=== PATIENT | female | born 1960 | race Caucasian/White ===

== ENCOUNTER → 2016-04-12 | Outpatient (CLI) | payer BC ==
[~2016-04-12] MED LIST: ALEN70TA4 PO; ALPR-412 PO; ASPI1TAB2 PO; ATOR-22 PO; BUPR-79 PO; CALC1CAP24 PO; CHOL1000 PO; CONJ0.3T3 PO; CRFL PO; CYTM25 PO; FENT12DI6 TD; FENT25DI10 TD; FLUC200T4 PO; FLUN0.02 NAE; FOLI1TAB7 PO; GLGKIT; HYOS0.3725 PO; INSDGI SC; INSPMPNVLG; LEVO50TA6 PO; MONT1TAB5 PO; MULT-506 PO; ONDA8TAB62 SL; PANC1200 PO; RXC30 PO; VLT500 PO; ZNTT/150 PO; [UNRECOGNIZED DRUG - CODE] PO
[2016-04-12 10:22] LABS: ESTIMATED AVERAGE GLUCOSE 203 mg/dl; HA1C FLAG Normal (Normal)
== END | disposition home or self-care (01) ==
LOC: C.LAB1850 09:16
PROVIDERS: ATTEND Nurse Practitioner Adult Health
DX: Z11.59 Encounter for screening for other viral diseases (principal); E10.41 Type 1 diabetes mellitus with diabetic mononeuropathy

== ENCOUNTER → 2016-05-02 | Outpatient (CLI) | payer BC ==
[2016-05-02 16:00] LABS: BASO % 0.5 %; BASO ABS # 0.04 K/uL (0-0.2); COMPLETE YES; EOS % 2.3 %; HEMATOCRIT 35.4 % (37-47); IG% 0.2 %; LYMPH % 45.3 %; LYMPH ABS # 3.68 K/uL (1.2-3.4); MEAN CELL VOLUME 100.9 fL (80-100); MEAN CORPUSCULAR HEMOGLOBIN 34.8 pg (25-34); MEAN CORPUSCULAR HGB CONC 34.5 g/dl (32-36); MEAN PLATELET VOLUME 9.7 fL (7.4-10.4); MONO % 8.5 %; NEUT % 43.2 %; PLATELET COUNT 436 K/uL (130-400); RED BLOOD COUNT 3.51 M/uL (4.2-5.4); WHITE BLOOD COUNT 8.12 K/uL (4.8-10.8)
[2016-05-02 16:56] LABS: ALT/SGPT 19 U/L (12-78); BLOOD UREA NITROGEN 11 mg/dl (7-18); BUN/CREATININE RATIO 19.1 (10-20); CALCIUM 8.7 mg/dl (8.5-10.1); CARBON DIOXIDE 28 mmol/L (21-32); CHLORIDE 103 mmol/L (98-107); CHOLESTEROL 149 mg/dl (0-200); CREATININE 0.56 mg/dl (0.60-1.20); GLUCOSE 175 mg/dl (70-99); POTASSIUM 3.9 mmol/L (3.5-5.1); SODIUM 141 mmol/L (136-145)
[2016-05-02 17:06] LABS: ALB/GLOB RATIO 1.3 (0.9-2); ALKALINE PHOSPHATASE 86 U/L (45-117); AST/SGOT 15 U/L (15-37); CHOLESTEROL/HDL RATIO 1.3; HDL CHOLESTEROL 118 mg/dl; LDL CHOLESTEROL CALCULATED 16 mg/dl; THYROID STIMULATING HORMONE 0.696 uIu/ml (0.300-4.500); TRIGLYCERIDES 76 mg/dl (0-150); VERY LOW DENSITY LIPOPROT CALC 15 mg/dl
== END | disposition home or self-care (01) ==
LOC: C.LAB1850 15:03
PROVIDERS: ATTEND Internal Medicine
DX: G62.9 Polyneuropathy, unspecified (principal)

== ENCOUNTER 2016-05-06 14:31 | Inpatient (IN) | payer BC ==
[~2016-05-06] VITALS: Ht 160 cm; Wt 45.1 kg
[~2016-05-06 14:31] MED LIST changes: -CRFL PO; -VLT500 PO; -ZNTT/150 PO
[2016-05-06] MEDS ORDERED: SODIUM CHLORIDE 0.9% 1000ML 1,000 ML IV STA ×3 (16:22→18:38)
[2016-05-06] MEDS ORDERED: ONDANSETRON INJ 2 MG/ML 2 ML VIAL IV STA (16:36)
[2016-05-06] MEDS ORDERED: GI COCKTAIL PO STA (16:36)
[2016-05-06 16:52] LABS: URINE APPEARANCE CLEAR (CLEAR); URINE BILIRUBIN NEG (NEG); URINE COLOR YELLOW; URINE NITRITE NEG (NEG); URINE PH >= 9.0 (4.5-7.5); URINE SPECIFIC GRAVITY 1.043 (1.000-1.030); UROBILINOGEN NEG (NEG)
[2016-05-06 16:56] LABS: MANUAL MICROSCOPIC REQUIRED? NO; REVIEW REQ? NO
[2016-05-06] MEDS ORDERED: VLT500 PO (16:56)
--- NOTE | 2016-05-06 17:17 | DIAGNOSTIC IMAGING REPORT ---
CHEST ONE VIEW PORTABLE CLINICAL HISTORY: EVALUATE WEAKNESS dyspnea COMPARISON STUDY: 01/12/2016 FINDINGS: The bones soft tissues and hemidiaphragms are normal. The cardiomediastinal silhouette is normal. The lungs are clear. The pulmonary vasculature is normal. IMPRESSION: Negative chest. Electronically signed by: Nick Lin M.D. 05/06/2016 5:16 PM Dictated Date/Time: 05/06/2016 5:15 PM
[2016-05-06] MEDS ORDERED: LIDOCAINE HCL 2% VISC SOLN 20 ML UDC ONE (17:20)
[2016-05-06] MEDS ORDERED: ALUMINUM/MAGNESIUM SUSP 30 ML UDC ONE (17:20)
[2016-05-06] MEDS: HYDROmorphone INJ 0.5 MG/0.5 ML SYR IV PRN ×2 (17:45→19:05)
[2016-05-06 18:06] LABS: BASO % 0.2 %; BASO ABS # 0.02 K/uL (0-0.2); COMPLETE YES; EOS % 0.1 %; HEMATOCRIT 37.8 % (37-47); IG% 0.2 %; LYMPH % 21.3 %; LYMPH ABS # 2.68 K/uL (1.2-3.4); MEAN CELL VOLUME 103.8 fL (80-100); MEAN CORPUSCULAR HEMOGLOBIN 35.7 pg (25-34); MEAN CORPUSCULAR HGB CONC 34.4 g/dl (32-36); MEAN PLATELET VOLUME 10.5 fL (7.4-10.4); MONO % 9.5 %; NEUT % 68.7 %; PLATELET COUNT 409 K/uL (130-400); RED BLOOD COUNT 3.64 M/uL (4.2-5.4); WHITE BLOOD COUNT 12.57 K/uL (4.8-10.8)
[2016-05-06 18:11] LABS: PARTIAL THROMBOPLASTIN RATIO 0.9
[2016-05-06] MEDS ORDERED: OPTIRAY 320 IV PRN (18:30)
[2016-05-06 18:36] LABS: ALKALINE PHOSPHATASE 87 U/L (45-117); ALT/SGPT 17 U/L (12-78); AST/SGOT 13 U/L (15-37); BLOOD UREA NITROGEN 11 mg/dl (7-18); BUN/CREATININE RATIO 14.7 (10-20); CALCIUM 9.4 mg/dl (8.5-10.1); CARBON DIOXIDE 32 mmol/L (21-32); CHLORIDE 98 mmol/L (98-107); CKMB/CK RATIO 0.9 (0-3.0); CREATININE 0.74 mg/dl (0.60-1.20); GLUCOSE 400 mg/dl (70-99); MAGNESIUM 2.2 mg/dl (1.8-2.4); POTASSIUM 3.6 mmol/L (3.5-5.1); SODIUM 140 mmol/L (136-145); THYROID STIMULATING HORMONE 0.148 uIu/ml (0.300-4.500)
[2016-05-06] MEDS ORDERED: NovoLIN-R INSULIN PER UNIT CHARGE IV STA ×2 (18:38→19:36)
[2016-05-06 19:13] LABS: BETA-HYDROXYBUTYRATE 7.71 mg/dL (0.2-2.81)
--- NOTE | 2016-05-06 19:40 | DIAGNOSTIC IMAGING REPORT ---
ABDOMEN AND PELVIS CT WITH IV AND ORAL CONTRAST CT DOSE: 239.83 mGy.cm HISTORY: Pain upper abd pain, prior whipple, splenectomy, appy, teressa, REBA TECHNIQUE: Multiaxial CT images of the abdomen and pelvis were performed following the use of intravenous and oral contrast. COMPARISON STUDY: 04/03/2009 FINDINGS: Lung bases are clear. Stable postoperative changes consistent with Whipple type procedure. Pneumobilia postoperative basis. Mild fatty infiltration of liver. Kidneys enhance uniformly. No evidence for hydronephrosis. Prior splenectomy. No significant bowel obstructive changes. Uterus is anteflexed. Bladder is midline. Prior right hip narrowing procedure. IMPRESSION: Stable postoperative changes consistent with prior Whipple procedure and splenectomy. No acute process of the abdomen or pelvis. Electronically signed by: Nick Lin M.D. 05/06/2016 7:38 PM Dictated Date/Time: 05/06/2016 7:34 PM
[2016-05-06] MEDS ORDERED: OXYCODONE HCL IR 30 MG TAB (IMMEDIATE RELEASE) PO PRN (20:30)
--- NOTE | 2016-05-06 20:37 | EMERGENCY ROOM VISIT NOTE ---
History Report prepared by Alvinibnikki: Leatha Marshall Under the Supervision of: Dr. Zay Fleming M.D. First contact with patient: 16:22 Chief Complaint: HYPERGLYCEMIA Stated Complaint: BURNING STOMACH,SUGAR OVER 500, LEFT ARM History of Present Illness The patient is a 55 year old female who presents to the Emergency Room with complaints of persistent hyperglycemia. Her BSG was in the 400's when she checked at home earlier today. She has a history of diabetes and has an insulin pump in place. She also gave herself an insulin injection around 1130 today, but notes it provided no relief. She reports about 3 days ago, she started experiencing a "burning" pain in her stomach and watery diarrhea. She states her abdominal pain feels like it's caused by "acid" and she reports she has experienced similar symptoms in the past. She complains of feeling nauseous here in the ED but she has not vomited. She admits 3 of her family members have the flu at home, but she denies any recent cough or cold symptoms. She states she did experience a headache for the past 1 week, but reports it went away yesterday. The patient denies LOC, fevers, chills, diaphoresis, visual changes, neck pain, chest pain, breathing difficulties, back pain, melena, hematochezia, urinary symptoms, numbness, weakness, lymphadenopathy, rash, or other complaints. 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 A total of ten systems were reviewed and were otherwise negative. Past Medical & Surgical Medical Problems: (1) Appendectomy (2) Cholecystectomy (3) Diabetes mellitus (4) Intertrochanteric fracture of right hip (5) Pancreatectomy (6) Small bowel obstruction (7) Splenectomy Family History Patient reports no known family medical history. Social History Smoking Status: Never Smoker Alcohol Use: none Drug Use: none Marital Status: Housing Status: lives with family Occupation Status: employed Current/Historical Medications Scheduled Aspirin (Emily Aspirin Ec Low Dose), 81 MG PO DAILY Atorvastatin (Lipitor), 20 MG PO QPM Bupropion (Wellbutrin Sr), 150 MG PO Q12 Calcium (Calcium), 250 MG PO QPM Cholecalciferol (Vitamin D3), 1 TAB PO DAILY Estrog Conj/Medryoxyprog Acet (Prempro 0.3MG/1.5MG), 1 TAB PO QAM Fentanyl (Duragesic), 12 MCG TD [id number] Fentanyl (Duragesic), 25 MCG TD [id number] Folic Acid (Folvite), 1 MG PO QAM Hyoscyamine Sulfate (Levbid), 0.375 MG PO BID Insulin Aspart (novoLOG INSULIN PUMP ), 1 EA N/A UD Levothyroxine Sodium (Levothyroxine Sodium), 50 MCG PO QAM Liothyronine Sodium (Liothyronine Sodium), 12.5 MCG PO QAM Montelukast Sodium (Montelukast Sodium), 10 MG PO QAM Multivitamin (Multivitamin), 1 TAB PO QAM Omeprazole-Sodium Bicarbonate (Omeprazole/Sodium Bicarbo), 1 CAPSULE PO BID Pancrelipase (Lipase-Protease- (Creon 81953), 36,000 UNITS PO TIDM Valacyclovir HCl (Valacyclovir HCl), 500 MG PO BID Scheduled PRN Alprazolam (Alprazolam), 0.25 MG PO TID PRN for Anxiety Fluconazole (Diflucan), 200 MG PO UD PRN for UNDECIDED Flunisolide (Nasal) (Flunisolide), 2 SPRAYS GRECIA DAILY PRN for Allergies Glucagon (Glucagon Emergency Kit), 1 MG UD PRN for HYPOGLYCEMIA PROTOCOL Insulin Glargine (Lantus), 13 UNITS SC UD PRN for Novolog Pump Failure Ondansetron Odt (Zofran Odt), 8 MG SL Q6H PRN for Nausea Oxycodone HCl (Oxycodone HCl), 30 MG PO Q6H PRN for Pain Allergies Coded Allergies: No Known Allergies (Verified , 05/06/16) Physical Exam Vital Signs Date Time Temp Pulse Resp B/P Pulse Ox O2 Delivery O2 Flow Rate FiO2 05/06/16 20:00 87 16 136/79 99 Room Air 05/06/16 19:01 91 16 124/67 98 Room Air 05/06/16 16:51 112 18 144/78 96 Room Air 05/06/16 16:46 102 05/06/16 15:10 37.0 133 20 149/80 97 Room Air Physical Exam GENERAL: Awake, alert, uncomfortable-appearing, in no distress HENT: Normocephalic, atraumatic. Oropharynx unremarkable. EYES: Normal conjunctiva. Sclera non-icteric. NECK: Supple. No nuchal rigidity. FROM. No JVD. RESPIRATORY: Clear to auscultation. CARDIAC: Tachycardic heart rate, normal rhythm. Extremities warm and well perfused. Pulses equal. ABDOMEN: Soft, non-distended. Epigastric abdominal tenderness to palpation. No rebound or guarding. No masses. RECTAL: Deferred. MUSCULOSKELETAL: Chest examination reveals no tenderness. The back is symmetrical on inspection without obvious abnormality. There is no CVA tenderness to palpation. No joint edema. LOWER EXTREMITIES: Calves are equal size bilaterally and non-tender. No edema. No discoloration. NEURO: Normal sensorium. No sensory or motor deficits noted. SKIN: No rash or jaundice noted. Medical Decision & Procedures ER Provider Diagnostic Interpretation: This X-Ray was reviewed and interpreted by myself and the radiologist. CHEST ONE VIEW PORTABLE CLINICAL HISTORY: EVALUATE WEAKNESS dyspnea COMPARISON STUDY: 01/12/2016 FINDINGS: The bones soft tissues and hemidiaphragms are normal. The cardiomediastinal silhouette is normal. The lungs are clear. The pulmonary vasculature is normal. IMPRESSION: Negative chest. Electronically signed by: Nick Lin M.D. 05/06/2016 5:16 PM Laboratory Results 05/06/16 17:20 Red Blood Count 3.64, Mean Corpuscular Volume 103.8, Mean Corpuscular Hemoglobin 35.7, Mean Corpuscular Hemoglobin Concent 34.4, Mean Platelet Volume 10.5, Neutrophils (%) (Auto) 68.7, Lymphocytes (%) (Auto) 21.3, Monocytes (%) ( Auto) 9.5, Eosinophils (%) (Auto) 0.1, Basophils (%) (Auto) 0.2, Neutrophils # ( Auto) 8.64, Lymphocytes # (Auto) 2.68, Monocytes # (Auto) 1.19, Eosinophils # ( Auto) 0.01, Basophils # (Auto) 0.02 05/06/16 17:20 Test 05/06/16 16:25 05/06/16 17:20 05/06/16 20:01 Urine Color YELLOW Urine Appearance CLEAR (CLEAR) Urine pH >= 9.0 (4.5-7.5) Urine Specific [place] 1.043 (1.000-1.030) Urine Protein NEG (NEG) Urine Glucose (UA) 2+ (NEG) Urine Ketones 1+ (NEG) Urine Occult Blood NEG (NEG) Urine Nitrite NEG (NEG) Urine Bilirubin NEG (NEG) Urine Urobilinogen NEG (NEG) Urine Leukocyte Esterase NEG (NEG) White Blood Count 12.57 K/uL (4.8-10.8) Red Blood Count 3.64 M/uL (4.2-5.4) Hemoglobin 13.0 g/dL (12.0-16.0) Hematocrit 37.8 % (37-47) Mean Corpuscular Volume 103.8 fL (80-100) Mean Corpuscular Hemoglobin 35.7 pg (25-34) Mean Corpuscular Hemoglobin Concent 34.4 g/dl (32-36) Platelet Count 409 K/uL (130-400) Mean Platelet Volume 10.5 fL (7.4-10.4) Neutrophils (%) (Auto) 68.7 % Lymphocytes (%) (Auto) 21.3 % Monocytes (%) (Auto) 9.5 % Eosinophils (%) (Auto) 0.1 % Basophils (%) (Auto) 0.2 % Neutrophils # (Auto) 8.64 K/uL (1.4-6.5) Lymphocytes # (Auto) 2.68 K/uL (1.2-3.4) Monocytes # (Auto) 1.19 K/uL (0.11-0.59) Eosinophils # (Auto) 0.01 K/uL (0-0.5) Basophils # (Auto) 0.02 K/uL (0-0.2) RDW Standard Deviation 44.0 fL (36.4-46.3) RDW Coefficient of Variation 11.7 % (11.5-14.5) Immature Granulocyte % (Auto) 0.2 % Immature Granulocyte # (Auto) 0.03 K/uL (0.00-0.02) Prothrombin Time 11.0 SECONDS (9.0-12.0) Prothromb Time International Ratio 1.0 (0.9-1.1) Activated Partial Thromboplast Time 22.8 SECONDS (21.0-31.0) Partial Thromboplastin Ratio 0.9 Anion Gap 10.0 mmol/L (3-11) Est Creatinine Clear Calc Drug Dose 60.4 ml/min Estimated GFR () 105.0 Estimated GFR (Non- 90.6 BUN/Creatinine Ratio 14.7 (10-20) Calcium Level 9.4 mg/dl (8.5-10.1) Magnesium Level 2.2 mg/dl (1.8-2.4) Total Bilirubin 0.4 mg/dl (0.2-1) Direct Bilirubin 0.1 mg/dl (0-0.2) Aspartate Amino Transf (AST/SGOT) 13 U/L (15-37) Alanine Aminotransferase (ALT/SGPT) 17 U/L (12-78) Alkaline Phosphatase 87 U/L (45-117) Total Creatine Kinase 74 U/L (26-192) Creatine Kinase MB 0.7 ng/ml (0.5-3.6) Creatine Kinase MB Ratio 0.9 (0-3.0) Troponin I < 0.015 ng/ml (0-0.045) Total Protein 7.4 gm/dl (6.4-8.2) Albumin 4.2 gm/dl (3.4-5.0) Lipase 59 U/L (73-393) Beta-Hydroxybutyric Acid 7.71 mg/dL (0.2-2.81) Thyroid Stimulating Hormone (TSH) 0.148 uIu/ml (0.300-4.500) Bedside Glucose 154 mg/dl (70-90) Date/Time Source Procedure Growth Status 05/06/16 16:25 Stool C.difficile Toxin B Gene (PCR) - Final No C. difficile toxin B gene detected Complete Laboratory results reviewed by me Medications Administered Medications (Trade) Dose Ordered Sig/Yang Route Start Time Stop Time Status Last Admin Dose Admin Sodium Chloride 1,000 ml @ 125 mls/hr Q8H STAT IV 05/06/16 16:22 05/07/16 00:21 05/06/16 16:22 125 MLS/HR Sodium Chloride (Nss 1000ml) 1,000 ml @ 999 mls/hr Q1H1M STAT IV 05/06/16 16:22 05/06/16 17:22 DC 05/06/16 17:26 999 MLS/HR Ondansetron HCl (Zofran Inj) 4 mg NOW STAT IV 05/06/16 16:36 05/06/16 16:38 DC 05/06/16 17:26 4 MG Miscellaneous Medication (Gi Cocktail) 24 ml NOW STAT PO 05/06/16 16:36 05/06/16 16:38 DC 05/06/16 17:26 24 ML Hydromorphone HCl (Dilaudid Inj) 0.5 mg Q30M PRN IV 05/06/16 16:45 05/20/16 16:44 05/06/16 19:05 0.5 MG Al Hydroxide/Mg Hydroxide (Maalox Susp) 30 ml STK-MED ONCE .ROUTE 05/06/16 17:20 05/06/16 17:22 DC 05/06/16 17:26 30 ML Lidocaine HCl 20 ml 20 ml STK-MED ONCE .ROUTE 05/06/16 17:20 05/06/16 17:22 DC 05/06/16 17:26 20 ML Sodium Chloride (Nss 1000ml) 1,000 ml @ 999 mls/hr Q1H1M STAT IV 05/06/16 18:38 05/06/16 19:38 DC 05/06/16 18:56 999 MLS/HR Insulin Human Regular (novoLIN-R U-100 PER UNIT) 10 units NOW STAT IV 05/06/16 18:38 05/06/16 18:39 DC 05/06/16 18:59 10 UNITS ECG Indication: other (hyperglycemia) Rate (beats per minute): 107 Rhythm: sinus tachycardia Findings: nonspecific-ST abn, no acute ischemic change, no ectopy ED Course 1631: The patient was evaluated in room A10. A complete history and physical exam was performed. 1622: NSS 1000 ml @ 999 mls/hr IV, NSS 1000 ml @ 125 mls/hr IV. 1636: GI Cocktail 24 ml PO, Zofran 4 mg IV. 1645: Dilaudid 0.5 mg IV. 1720: Lidocaine HCl 20 ml IV, Maalox Susp 30 ml IV. 1758: I reevaluated the patient. She is feeling somewhat better. Medical Decision Triage Nursing notes reviewed. The patient's presentation and history were concerning for hypoglycemia and upper abdominal pain. Etiologies such as hyperglycemia, electrolyte abnormality, DKA, ketosis, diverticulitis, obstruction, inflammatory bowel disease, renal colic, PUD, biliary pathology, pancreatitis, mesenteric ischemia, aortic pathology, infections, genitourinary, UTI, perforated viscus, as well as others were entertained. The patient was evaluated. She was comfortable. She was hydrated. She was given IV insulin. The patient had improvement of her blood sugar. She was also given a GI cocktail and. Patient did require 2 doses of IV Dilaudid for reasonable pain control. CT imaging was performed. No obstruction or gross abnormality was noted. Stable pneumobilia present. Given the patient's leukocytosis, ketosis, and moderate hyperglycemia in conjunction with the prolonged course of symptoms at home further evaluation and management in the hospital was felt to be reasonable. I discussed this with the patient and her . I did consult with the hospitalist service. The patient will be evaluated in the Emergency Room for further management. The chart was completed utilizing [employer] Speech voice recognition software. Grammatical errors, random word insertions, pronoun errors, and incomplete sentences are an occasional consequence of this system due to software limitations, ambient noise, and hardware issues. Any formal questions or concerns about the content, text, or information contained within the body of this dictation should be directly addressed to the physician for clarification. Consults Time Called: 1999 Consulting Physician: Dr. Bailey Returned Call: 2007 Discussed the patient's history, presentation, diagnostics and Emergency Room treatment. Due to the concerns of the ketosis, hyperglycemia, prior splenectomy , and upper abdominal pain requiring IV narcotics the patient will be evaluated for further management. Impression Primary Impression: Upper abdominal pain Additional Impressions: Leukocytosis Diabetic ketosis Hyperglycemia History of splenectomy Scribe Attestation The scribe's documentation has been prepared under my direction and personally reviewed by me in its entirety. I confirm that the note above accurately reflects all work, treatment, procedures, and medical decision making performed by me. Departure Information Dispostion Being Evaluated By Hospitalist Referrals Juan Carlos Sebastian M.D. (PCP) Patient Instructions My [facility] Problem Qualifiers
[2016-05-06] MEDS ORDERED: ONDANSETRON INJ 2 MG/ML 2 ML VIAL IV PRN (20:45)
[2016-05-06] MEDS ORDERED: ACETAMINOPHEN 325 MG TAB PO PRN (20:45)
[2016-05-06] MEDS ORDERED: MAGNESIUM HYDROXIDE SUSP 30 ML UDC PO PRN (20:45)
[2016-05-06] MEDS ORDERED: POLYETHYLENE (MIRALAX) 17 GM PACK PO PRN (20:45)
[2016-05-06] MEDS ORDERED: ALUMINUM/MAGNESIUM/SIMETH (MAALOX MAX) 30 ML UDC PO PRN (20:45)
[2016-05-06] MEDS ORDERED: ZOLPIDEM TARTRATE 5 MG TAB PO PRN (20:45)
--- NOTE | 2016-05-06 21:27 | History and Physical ---
History & Physical Date & Time of Service: May 06, 2016 at 20:51 Chief Complaint: Burning Stomach,Sugar Over 500, Left Arm Primary Care Physician: Juan Carlos Sebastian M.D. 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 Pt has been dealing with GERD-related pain for a few weeks which has become progressively worse. She also developed cramping lower abdominal pain in addition to profuse watery diarrhea over the last 2 days. She denies fevers, vomiting or SOB. 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 This is normally controlled with a steady dose of narcotics and she describes this as clearly differing form her current pain. Her blood glucose was 500 on arrival to the ER despite appropriate use of her insulin pump. She did exhibit improvement with pain control, insulin and IVF in the ER. She has had exposure to family members with the Flu over the past few days but does not have similar symptoms. As she is asplenic with acute profuse diarrhea and abdominal pain, we are inclined to assign her to observation overnight and will have a low threshold for employing antibiotics. A CT obtained in the ER was negative for acute colitis. 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 Social History Smoking Status: Never Smoker Drug Use: none Marital Status: Housing status: lives with family Occupational Status: employed Immunizations History of Influenza Vaccine: Yes Influenza Vaccine Date: Dec 17, 2012 History of Tetanus Vaccine?: Unknown History of Pneumococcal: Unknown History of Hepatitis B Vaccine: Unknown Multi-Drug Resistant Organisms History of MDRO: No Allergies Coded Allergies: No Known Allergies (Verified , 05/06/16) Home Medications Scheduled Aspirin (Emily Aspirin Ec Low Dose), 81 MG PO DAILY Atorvastatin (Lipitor), 20 MG PO QPM Bupropion (Wellbutrin Sr), 150 MG PO Q12 Calcium (Calcium), 250 MG PO QPM Cholecalciferol (Vitamin D3), 1 TAB PO DAILY Estrog Conj/Medryoxyprog Acet (Prempro 0.3MG/1.5MG), 1 TAB PO QAM Fentanyl (Duragesic), 12 MCG TD [id number] Fentanyl (Duragesic), 25 MCG TD [id number] Folic Acid (Folvite), 1 MG PO QAM Hyoscyamine Sulfate (Levbid), 0.375 MG PO BID Insulin Aspart (novoLOG INSULIN PUMP ), 1 EA N/A UD Levothyroxine Sodium (Levothyroxine Sodium), 50 MCG PO QAM Liothyronine Sodium (Liothyronine Sodium), 12.5 MCG PO QAM Montelukast Sodium (Montelukast Sodium), 10 MG PO QAM Multivitamin (Multivitamin), 1 TAB PO QAM Omeprazole-Sodium Bicarbonate (Omeprazole/Sodium Bicarbo), 1 CAPSULE PO BID Pancrelipase (Lipase-Protease- (Creon [id number]), 36,000 UNITS PO TIDM Valacyclovir HCl (Valacyclovir HCl), 500 MG PO BID Scheduled PRN Alprazolam (Alprazolam), 0.25 MG PO TID PRN for Anxiety Fluconazole (Diflucan), 200 MG PO UD PRN for UNDECIDED Flunisolide (Nasal) (Flunisolide), 2 SPRAYS GRECIA DAILY PRN for Allergies Glucagon (Glucagon Emergency Kit), 1 MG UD PRN for HYPOGLYCEMIA PROTOCOL Insulin Glargine (Lantus), 13 UNITS SC UD PRN for Novolog Pump Failure Ondansetron Odt (Zofran Odt), 8 MG SL Q6H PRN for Nausea Oxycodone HCl (Oxycodone HCl), 30 MG PO Q6H PRN for Pain Review of Systems Constitutional: No chills, No fever, No sweats Eyes: No eye pain, No worsening of vision ENT: No hearing loss, No nasal symptoms, No unusual epistaxis Respiratory: No cough, No sputum, No wheezing Cardiovascular: No PND, No chest pain, No orthopnea Abdomen: + diarrhea, + nausea, + pain, No GI bleeding, No constipation, No vomiting Musculoskeletal: No joint pain, No muscle pain Genitourinary - Female: No dysuria, No urinary frequency, No urinary urgency Neurologic: No memory loss, No paralysis, No weakness Psychiatric: No depression symptoms Endocrine: No fatigue Hematologic / Lymphatic: No abnormal bleeding/bruising Integumentary: No rash Allergic / Immunologic: No environmental allergies Physical Exam Vital Signs Date Time Temp Pulse Resp B/P Pulse Ox O2 Delivery O2 Flow Rate FiO2 05/06/16 20:00 87 16 136/79 99 Room Air 05/06/16 19:01 91 16 124/67 98 Room Air 05/06/16 16:51 112 18 144/78 96 Room Air 05/06/16 16:46 102 05/06/16 15:10 37.0 133 20 149/80 97 Room Air General Appearance: WD/WN, no apparent distress Head: normocephalic Eyes: normal inspection ENT: normal ENT inspection, hearing grossly normal, TMs normal, pharynx normal Neck: supple, no JVD Respiratory/Chest: chest non-tender, lungs clear, normal breath sounds Cardiovascular: regular rate, rhythm, no edema, no gallop, no JVD, no murmur, normal peripheral pulses Abdomen/GI: normal bowel sounds, soft, + tenderness Back: normal inspection, no CVA tenderness, normal range of motion Extremities/Musculoskelatal: normal inspection, no calf tenderness, normal capillary refill, no pedal edema, normal range of motion 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, no motor/sensory deficits, alert, oriented x 3 Skin: normal color, warm/dry, no rash Diagnostics Laboratory Results Results Past 24 Hours Test 05/06/16 15:17 05/06/16 16:25 05/06/16 17:20 05/06/16 18:56 Range/Units Bedside Glucose 399 326 70-90 mg/dl Urine Color YELLOW Urine Appearance CLEAR CLEAR Urine pH >= 9.0 4.5-7.5 Urine Specific [place] 1.043 1.000-1.030 Urine Protein NEG NEG Urine Glucose (UA) 2+ NEG Urine Ketones 1+ NEG Urine Occult Blood NEG NEG Urine Nitrite NEG NEG Urine Bilirubin NEG NEG Urine Urobilinogen NEG NEG Urine Leukocyte Esterase NEG NEG White Blood Count 12.57 4.8-10.8 K/uL Red Blood Count 3.64 4.2-5.4 M/uL Hemoglobin 13.0 12.0-16.0 g/dL Hematocrit 37.8 37-47 % Mean Corpuscular Volume 103.8 80-100 fL Mean Corpuscular Hemoglobin 35.7 25-34 pg Mean Corpuscular Hemoglobin Concent 34.4 32-36 g/dl Platelet Count 409 130-400 K/uL Mean Platelet Volume 10.5 7.4-10.4 fL Neutrophils (%) (Auto) 68.7 % Lymphocytes (%) (Auto) 21.3 % Monocytes (%) (Auto) 9.5 % Eosinophils (%) (Auto) 0.1 % Basophils (%) (Auto) 0.2 % Neutrophils # (Auto) 8.64 1.4-6.5 K/uL Lymphocytes # (Auto) 2.68 1.2-3.4 K/uL Monocytes # (Auto) 1.19 0.11-0.59 K/uL Eosinophils # (Auto) 0.01 0-0.5 K/uL Basophils # (Auto) 0.02 0-0.2 K/uL RDW Standard Deviation 44.0 36.4-46.3 fL RDW Coefficient of Variation 11.7 11.5-14.5 % Immature Granulocyte % (Auto) 0.2 % Immature Granulocyte # (Auto) 0.03 0.00-0.02 K/uL Prothrombin Time 11.0 9.0-12.0 SECONDS Prothromb Time International Ratio 1.0 0.9-1.1 Activated Partial Thromboplast Time 22.8 21.0-31.0 SECONDS Partial Thromboplastin Ratio 0.9 Sodium Level 140 136-145 mmol/L Potassium Level 3.6 3.5-5.1 mmol/L Chloride Level 98 98-107 mmol/L Carbon Dioxide Level 32 21-32 mmol/L Anion Gap 10.0 3-11 mmol/L Blood Urea Nitrogen 11 7-18 mg/dl Creatinine 0.74 0.60-1.20 mg/dl Est Creatinine Clear Calc Drug Dose 60.4 ml/min Estimated GFR () 105.0 Estimated GFR (Non- 90.6 BUN/Creatinine Ratio 14.7 10-20 Random Glucose 400 70-99 mg/dl Calcium Level 9.4 8.5-10.1 mg/dl Magnesium Level 2.2 1.8-2.4 mg/dl Total Bilirubin 0.4 0.2-1 mg/dl Direct Bilirubin 0.1 0-0.2 mg/dl Aspartate Amino Transf (AST/SGOT) 13 15-37 U/L Alanine Aminotransferase (ALT/SGPT) 17 12-78 U/L Alkaline Phosphatase 87 45-117 U/L Total Creatine Kinase 74 26-192 U/L Creatine Kinase MB 0.7 0.5-3.6 ng/ml Creatine Kinase MB Ratio 0.9 0-3.0 Troponin I < 0.015 0-0.045 ng/ml Total Protein 7.4 6.4-8.2 gm/dl Albumin 4.2 3.4-5.0 gm/dl Lipase 59 73-393 U/L Beta-Hydroxybutyric Acid 7.71 0.2-2.81 mg/dL Thyroid Stimulating Hormone (TSH) 0.148 0.300-4.500 uIu/ml Test 05/06/16 20:01 Range/Units Bedside Glucose 154 70-90 mg/dl Microbiology Results 05/06/16 C.difficile Toxin B Gene (PCR) - Final, Complete No C. difficile toxin B gene detected 05/06/16 Shiga Toxin Test, Received Pending 05/06/16 Stool Culture, Received Pending 05/06/16 Urine Culture, Received Pending Diagnostic Radiology CT abdomen: Stable postoperative changes consistent with prior Whipple procedure and splenectomy. No acute process of the abdomen or pelvis. 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 Pt has been dealing with GERD-related pain for a few weeks which has become progressively worse. She also developed cramping lower abdominal pain in addition to profuse watery diarrhea over the last 3 days. She did exhibit improvement with pain control, insulin and IVF in the ER. As she is asplenic with acute profuse diarrhea and abdominal pain, we are inclined to assign her to observation overnight and will have a low threshold for employing antibiotics. 1) Abdominal pain and diarrhea - possible enteritis - does not have fevers or evidence of inflammation on CT. Pt will be monitored overnight. Stool cultures and C diff studies ordered. Pain is currently controlled - will cont her home narcotics including Fentanyl and Oxycontin. 2) DM - Hyperglycemia - no acidosis - ketones (+) - her Glu came down to 150 prior to evaluation so that we continue use of her pump and trend her POCs. Aggressive fluid resuscitation provided. 3) GERD - she expresses this as her primary concern recently and states that the burning has been persistent and severe. She should be referred to GI for further follow-up or an inhouse consult can be obtained if she remains for an extended period. We will provide a PPI and Carafate. 4) Hypothyroid - TSH is low so she may be over-suppressed - we will hold her current Synthroid and she should likely have a dose adjustment or be referred to her Document Reviewer on D/C. 5) Hyperlipidemia - cont Statin SCDs only for DVT prophylaxis as pain may be related to PUD - full code Total time for this admit including discussion with ER attending - review of labs, meds, imaging, EKG - 38 min Level of Care Med/Surg Resuscitation Status FULL RESUSCITATION VTE Prophylaxis VTE Risk Assessment Done? Y/N: Yes Risk Level: Moderate Given or contraindicated: SCD's
[2016-05-06 21:50] VITALS: O2SAT 99
[2016-05-06] MEDS ORDERED: ATORVASTATIN 20 MG TAB PO SCH (23:00)
[2016-05-06] MEDS ORDERED: FENTANYL 12 MCG/HR TDSY TD SCH (23:00)
[2016-05-06] MEDS ORDERED: FENTANYL 25 MCG/HR TDSY TD SCH (23:00)
[2016-05-06 23:03] VITALS: BP 115/64; PULSE 95; TEMP 37; Ht 160 cm; Wt 45.1 kg
[2016-05-06] MEDS: BuPROPion SR 150 MG TABCR PO SCH (23:33)
[2016-05-06] MEDS: NSS + 20MEQ KCL 1000ML 1,000 ML IV SCH (23:34)
[2016-05-06] MEDS: CHECK FENTANYL PATCH PLACEMENT SCH (23:36)
[2016-05-06] MEDS: ALPRAZOLAM 0.25 MG TAB PO PRN (23:41)
[2016-05-07] MEDS ORDERED: CHECK FENTANYL PATCH PLACEMENT ONE
[2016-05-07 00:10] VITALS: BP 121/72; PULSE 92; TEMP 36.8; O2SAT 93
[2016-05-07] MEDS ORDERED: GLUCOSE 40% GEL 15 GM TUBE PO PRN (06:00)
[2016-05-07] MEDS ORDERED: DEXTROSE 50% 50 ML SYR IV PRN (06:00)
[2016-05-07] MEDS ORDERED: GLUCOSE 10 TABS/TUBE PO PRN (06:00)
[2016-05-07] MEDS ORDERED: INSULIN ASPART 100 UNITS/ML VIAL SC PRN (06:00)
[2016-05-07] MEDS ORDERED: GLUCAGON FOR INJ 1 MG VIAL SQ PRN (06:00)
[2016-05-07] MEDS ORDERED: NovoLOG INSULIN PUMP SCH (06:30)
[2016-05-07] MEDS: NSS + 20MEQ KCL 1000ML 1,000 ML IV SCH (06:47)
[2016-05-07 07:05] LABS: HEMATOCRIT 33.3 % (37-47); MEAN CELL VOLUME 104.1 fL (80-100); MEAN CORPUSCULAR HGB CONC 33.6 g/dl (32-36); PLATELET COUNT 349 K/uL (130-400); WHITE BLOOD COUNT 10.78 K/uL (4.8-10.8)
[2016-05-07 07:37] LABS: BUN/CREATININE RATIO 8.9 (10-20); CALCIUM 8.2 mg/dl (8.5-10.1); CREATININE 0.56 mg/dl (0.60-1.20); MAGNESIUM 1.8 mg/dl (1.8-2.4); PHOSPHORUS 2.4 mg/dl (2.5-4.9); POTASSIUM 3.7 mmol/L (3.5-5.1)
[2016-05-07 07:46] VITALS: BP 122/77; PULSE 92; TEMP 37.1; O2SAT 98
[2016-05-07] MEDS ORDERED: PANCREAZE (LIPASE 10,500U) CAP PO SCH (08:00)
[2016-05-07] MEDS ORDERED: ASPIRIN 81 MG ECTAB PO SCH (08:00)
[2016-05-07] MEDS ORDERED: LIOTHYRONINE SODIUM 25 MCG TAB PO SCH (09:00)
[2016-05-07] MEDS ORDERED: PNEUMOCOCCAL ADMINISTRATION CHARGE ONE (09:00)
[2016-05-07] MEDS ORDERED: LEVOTHYROXINE 50 MCG TAB PO SCH (09:00)
[2016-05-07] MEDS ORDERED: PNEUMOCOCCAL POLYSACCHARIDES 25 MCG/0.5 ML VIAL/SYR IM. ONE (09:00)
[2016-05-07] MEDS: BuPROPion SR 150 MG TABCR PO SCH (09:38)
[2016-05-07] MEDS: CHECK FENTANYL PATCH PLACEMENT SCH (09:38)
[2016-05-07] MEDS: ALPRAZOLAM 0.25 MG TAB PO PRN (09:42)
--- NOTE | 2016-05-07 09:42 | Discharge Instructions ---
Discharge Instructions Admission Reason for Admission: Hyperglycemia,Upper Abdominal Pain Discharge Discharge Diagnosis / Problem: Abdominal pain Discharge Goals Goal(s): Decrease discomfort, Improve function, Increase independence, Improve disease control, Learn about illness, Diagnostic testing, Prevent Disease Progression Activity Recommendations Activity Limitations: resume your previous activity Shower/Bathe: no limitations . Instructions / Follow-Up Instructions / Follow-Up Patient to be discharged home No changes in medications made at this time Please follow up with Dr Juan Carlos Sebastian in 1-2 weeks If worsening abdominal pain, fevers or chills please report to ER Current Hospital Diet Patient's current hospital diet: Clear Liquid Diet Discharge Diet Recommended Diet: Diabetes Type 2 Diet Pending Studies Studies pending at discharge: no Laboratory Results Hemoglobin A1c Test 04/12/16 09:20 Range/Units Estimated Average Glucose 203 mg/dl Hemoglobin A1c 8.7 H 4.5-5.6 % Lipid Panel Test 05/02/16 15:08 Range/Units Triglycerides Level 76 0-150 mg/dl Cholesterol Level 149 0-200 mg/dl HDL Cholesterol 118 mg/dl Cholesterol/HDL Ratio 1.3 LDL Cholesterol, Calculated 16 mg/dl Medical Emergencies . Who to Call and When: Medical Emergencies: If at any time you feel your situation is an emergency, please call 911 immediately. . Non-Emergent Contact Non-Emergency issues call your: Primary Care Provider Call Non-Emergent contact if: your pain is worsening . . "Provider Documentation" section prepared by Papi Raya. VTE Core Measure Inpt VTE Proph given/why not?: SCD's
[2016-05-07 10:36] VITALS: BP 122/77; PULSE 92; TEMP 37.1; O2SAT 98
--- NOTE | 2016-05-07 12:57 | Discharge Summary ---
Discharge Summary Admission Date: May 06, 2016 at 20:41 Discharge Date: May 07, 2016 Discharge Disposition: Home Principal Diagnosis: Abdominal pain Immunizations: Have You Had Influenza Vaccine: Yes Influenza Vaccine Date: Dec 17, 2012 History of Tetanus Vaccine?: Unknown History of Pneumococcal: Unknown History of Hepatitis B Vaccine: Unknown Medication Reconciliation Continued Medications: Alprazolam (Alprazolam) 0.25 Mg Tab 0.25 MG PO TID PRN for Anxiety, #60 Aspirin (Emily Aspirin Ec Low Dose) 81 Mg Tab 81 MG PO DAILY, 3 Refills Atorvastatin (Lipitor) 20 Mg Tab 20 MG PO QPM, TAB Bupropion (Wellbutrin Sr) 150 Mg Ertab 150 MG PO Q12 Calcium (Calcium) 250 Mg Cap 250 MG PO QPM Cholecalciferol (Vitamin D3) 1,000 Unit Tab 1 TAB PO DAILY for 90 Days, #90 TAB 3 Refills Estrog Conj/Medryoxyprog Acet (Prempro 0.3MG/1.5MG) Tab 1 TAB PO QAM Fentanyl (Duragesic) 12 Mcg/ Dis 12 MCG TD [id number], #10 Fentanyl (Duragesic) 25 Mcg/ Dis 25 MCG TD [id number], #10 Fluconazole (Diflucan) 200 Mg Tab 200 MG PO UD PRN for UNDECIDED, TAB TAKE ONE TABLET ONCE AND IF NEEDED REPEAT IN 2 DAYS. Flunisolide (Nasal) (Flunisolide) 0.025 % Spr 2 SPRAYS GRECIA DAILY PRN for Allergies Folic Acid (Folvite) 1 Mg Tab 1 MG PO QAM Glucagon (Glucagon Emergency Kit) 1 Mg Kit 1 MG UD PRN for HYPOGLYCEMIA PROTOCOL Hyoscyamine Sulfate (Levbid) 0.375 Mg Tab 0.375 MG PO BID Insulin Aspart (novoLOG INSULIN PUMP ) 1 Ea Inj 1 EA N/A UD, EA Insulin Glargine (Lantus) Vial 13 UNITS SC UD PRN for Novolog Pump Failure, VIAL ADMINISTER AT BEDTIME IN THE EVENT OF NOVOLOG PUMP FAILURE. Levothyroxine Sodium (Levothyroxine Sodium) 50 Mcg Tab 50 MCG PO QAM Liothyronine Sodium (Liothyronine Sodium) 25 Mcg Tab 12.5 MCG PO QAM Montelukast Sodium (Montelukast Sodium) 10 Mg Tab 10 MG PO QAM Multivitamin (Multivitamin) Tab 1 TAB PO QAM Omeprazole-Sodium Bicarbonate (Omeprazole/Sodium Bicarbo) 1 Cap Cap 1 CAPSULE PO BID Ondansetron Odt (Zofran Odt) 8 Mg Soltab 8 MG SL Q6H PRN for Nausea Oxycodone HCl (Oxycodone HCl) 30 Mg Tab 30 MG PO Q6H PRN for Pain for 8 Days, #32 TAB Pancrelipase (Lipase-Protease- (Creon [id number]) 1 Cap Cap 76670 UNITS PO TIDM, CAP Valacyclovir HCl (Valacyclovir HCl) 500 Mg Tab 500 MG PO BID, #180 Discharge Exam Review of Systems: Constitutional: No chills, No fever Respiratory: No cough, No dyspnea on exertion, No shortness of breath, No sputum, No wheezing Cardiovascular: No chest pain, No orthopnea Abdomen: No diarrhea, No nausea, No pain, No vomiting Musculoskeletal: No joint pain, No muscle pain Genitourinary - Female: No dysuria, No urinary frequency, No urinary urgency Neurologic: No paralysis, No weakness Physical Exam: General Appearance: WD/WN, no apparent distress Neck: supple, no adenopathy Respiratory/Chest: chest non-tender, lungs clear, normal breath sounds Abdomen / GI: non tender, soft Neurologic/Psychiatric: alert, oriented x 3 Hospital Course 55 y/o F w/Hx pancreatic necrosis and Whipple procedure, 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 Pt has been dealing with GERD-related pain for a few weeks which has become progressively worse. She also developed cramping lower abdominal pain in addition to profuse watery diarrhea over the last 3 days. She did exhibit improvement with pain control, insulin and IVF in the ER. As she is asplenic with acute profuse diarrhea and abdominal pain, we are inclined to assign her to observation overnight and will have a low threshold for employing antibiotics. 1) Abdominal pain and diarrhea - possible enteritis - does not have fevers or evidence of inflammation on CT. Stool cultures and C diff studies neg. Pain is currently controlled - will cont her home narcotics including Fentanyl and Oxycontin. Discharge home as likely mild enteritis 2) IDDM - Hyperglycemia - no acidosis - ketones (+) - her Glu came down to 150 prior to evaluation so that we continue use of her pump and trend her POCs. Aggressive fluid resuscitation provided. 3) GERD - she expresses this as her primary concern recently and states that the burning has been persistent and severe. She should be referred to GI for further follow-up or an inhouse consult can be obtained if she remains for an extended period. We will provide a PPI and Carafate. 4) Hypothyroid - TSH is low so she may be over-suppressed - we will hold her current Synthroid and she should likely have a dose adjustment or be referred to her Welding Technician on D/C. 5) Hyperlipidemia - cont Statin Total Time Spent: Greater than 30 minutes This includes examination of the patient, discharge planning, medication reconciliation, and communication with other providers. Discharge Instructions Please refer to the electronic Patient Visit Report (Discharge Instructions) for additional information. Additional Copies To Juan Carlos Sebastian M.D.
[2016-05-07] MEDS ORDERED: MONTELUKAST SOD 10 MG TAB PO SCH (22:00)
[2016-05-08] MEDS ORDERED: FENTANYL PATCH REMOVE & WASTE SCH (23:00)
[2016-05-08] MEDS ORDERED: FENTANYL PATCH REMOVE & WASTE ONE (23:00)
== END 2016-05-07 11:00 | disposition home or self-care (01) | DRG 392 ==
LOC: ENRESERVTM → ENRESERVDT → C.EDB 14:33 → C.MS4W 20:41
PROVIDERS: ADMIT Internal Medicine; ATTEND Hospitalist
DX: K52.9 Noninfective gastroenteritis and colitis, unspecified (principal); K21.9 Gastro-esophageal reflux disease without esophagitis; E03.9 Hypothyroidism, unspecified; E78.5 Hyperlipidemia, unspecified; E11.69 Type 2 diabetes mellitus with other specified complication; E11.65 Type 2 diabetes mellitus with hyperglycemia; K27.9 Peptic ulcer, site unspecified, unspecified as acute or chronic, without hemorrhage or perforation; E11.40 Type 2 diabetes mellitus with diabetic neuropathy, unspecified; G89.29 Other chronic pain; D72.829 Elevated white blood cell count, unspecified; Z87.19 Personal history of other diseases of the digestive system; Z90.81 Acquired absence of spleen; Z96.41 Presence of insulin pump (external) (internal); Z79.82 Long term (current) use of aspirin; Z79.899 Other long term (current) drug therapy; Z79.891 Long term (current) use of opiate analgesic; Z79.4 Long term (current) use of insulin

== ENCOUNTER → 2016-06-05 | Outpatient (CLI) | payer BC ==
[~2016-06-05] MED LIST changes: -ALEN70TA4 PO; +CRFL PO; +VLT500 PO; +ZNTT/150 PO
== END | disposition home or self-care (01) ==
LOC: C.LABBC 15:18
PROVIDERS: ATTEND Internal Medicine
DX: G62.9 Polyneuropathy, unspecified (principal); E03.9 Hypothyroidism, unspecified

== ENCOUNTER 2016-06-29 10:36 | Emergency (ER) | payer BC ==
[~2016-06-29] VITALS: Ht 152.4 cm; Wt 47.0 kg
[~2016-06-29 10:36] MED LIST changes: -CRFL PO; -ZNTT/150 PO
[2016-06-29 10:48] VITALS: TEMP 36.8; Ht 152.4 cm; Wt 47.0 kg
[2016-06-29] MEDS ORDERED: CRFL PO (11:09)
[2016-06-29] MEDS ORDERED: ZNTT/150 PO (11:10)
[2016-06-29] MEDS ORDERED: LIDOCAINE HCL 2% VISC SOLN 20 ML UDC PO STA ×2 (11:27→13:12)
[2016-06-29] MEDS ORDERED: ALUMINUM/MAGNESIUM SUSP 30 ML UDC PO STA ×2 (11:27→13:12)
[2016-06-29 11:51] LABS: BASO % 0.4 %; BASO ABS # 0.05 K/uL (0-0.2); COMPLETE YES; EOS % 0.3 %; HEMATOCRIT 37.4 % (37-47); IG% 0.2 %; LYMPH % 10.2 %; LYMPH ABS # 1.25 K/uL (1.2-3.4); MEAN CELL VOLUME 100.8 fL (80-100); MEAN CORPUSCULAR HGB CONC 34.8 g/dl (32-36); MEAN PLATELET VOLUME 9.5 fL (7.4-10.4); NEUT % 83.9 %; PLATELET COUNT 454 K/uL (130-400); RED BLOOD COUNT 3.71 M/uL (4.2-5.4); WHITE BLOOD COUNT 12.26 K/uL (4.8-10.8)
[2016-06-29 12:08] LABS: ALT/SGPT 20 U/L (12-78); AST/SGOT 11 U/L (15-37); BLOOD UREA NITROGEN 13 mg/dl (7-18); BUN/CREATININE RATIO 14.9 (10-20); C-REACTIVE PROTEIN < 0.29 mg/dl (0-0.29); CALCIUM 9.3 mg/dl (8.5-10.1); CARBON DIOXIDE 29 mmol/L (21-32); CHLORIDE 100 mmol/L (98-107); CREATININE 0.88 mg/dl (0.60-1.20); GLUCOSE 321 mg/dl (70-99); POTASSIUM 3.8 mmol/L (3.5-5.1); SODIUM 136 mmol/L (136-145)
[2016-06-29 12:14] LABS: ALKALINE PHOSPHATASE 115 U/L (45-117); PHOSPHORUS 1.9 mg/dl (2.5-4.9)
[2016-06-29 12:22] LABS: BETA-HYDROXYBUTYRATE 2.38 mg/dL (0.2-2.81)
[2016-06-29] MEDS ORDERED: ALUMINUM/MAGNESIUM SUSP 30 ML UDC ONE ×2 (13:22→13:31)
[2016-06-29] MEDS ORDERED: LIDOCAINE HCL 2% VISC SOLN 20 ML UDC ONE ×2 (13:22→13:31)
--- NOTE | 2016-06-29 13:24 | EMERGENCY ROOM VISIT NOTE ---
History First contact with patient: 11:05 Chief Complaint: GI ASSESSMENT Stated Complaint: SEVERE ACID REFLEX Nursing Triage Summary: pt here with abd pains x several days. pt states last night became worse after taking gas ex. pt states having burning. pt states gi cocktails usually work. 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 The patient reports that she deals with reflux daily, but has been worsening over the past 2-3 days. She did have a recent upper endoscopy performed by Dr. Montgomery, showing inflammatory changes. She currently takes omeprazole 20 mg twice daily, and Carafate. She also has Magic swizzle at home that is not helping with her discomfort. The patient reports that she has been under a lot of stress lately. She denies any chest pain, shortness of breath or lower abdominal pain. She denies any pain extending into the back. The patient is only requesting a GI cocktail as that seems to help her discomfort the most. She does not feel that she needs any additional lab work today. Review of Systems HEENT: Denies dizziness, visual problems, hearing loss, tinnitus. Denies difficulty swallowing or oral lesions. PULMONARY: Denies cough, shortness of breath, sputum production or hemoptysis. CARDIOVASCULAR: Denies chest pain, palpitations, dyspnea on exertion, orthopnea or peripheral edema. GASTROINTESTINAL: Denies diarrhea, constipation, nausea or vomiting. Otherwise see history of present illness. GENITOURINARY: Denies dysuria, frequency, urgency or nocturia. NEUROLOGIC: Denies history of epilepsy, CVA, TIA or chronic headaches. MUSCULOSKELETAL: Denies history of joint tenderness/swelling. SKIN: Denies rashes or lesions. PSYCHIATRIC: Denies history of depression or mental illness. ENDOCRINE: Denies history of diabetes or thyroid disorders. Past Medical/Surgical History Medical Problems: (1) Appendectomy (2) Cholecystectomy (3) Diabetes mellitus (4) Intertrochanteric fracture of right hip (5) Pancreatectomy (6) Small bowel obstruction (7) Splenectomy Family History Patient reports no known family medical history. Social History Smoking Status: Never Smoker Alcohol Use: none Drug Use: none Marital Status: Housing Status: lives with family Occupation Status: employed Current/Historical Medications Scheduled Atorvastatin (Lipitor), 20 MG PO QPM Bupropion (Wellbutrin Sr), 150 MG PO Q12 Calcium (Calcium), 250 MG PO QPM Cholecalciferol (Vitamin D3), 1 TAB PO DAILY Estrog Conj/Medryoxyprog Acet (Prempro 0.3MG/1.5MG), 1 TAB PO QAM Fentanyl (Duragesic), 12 MCG TD [id number] Fentanyl (Duragesic), 25 MCG TD [id number] Folic Acid (Folvite), 1 MG PO QAM Hyoscyamine Sulfate (Levbid), 0.375 MG PO BID Insulin Aspart (novoLOG INSULIN PUMP ), 1 EA N/A UD Levothyroxine Sodium (Levothyroxine Sodium), 50 MCG PO QAM Liothyronine Sodium (Liothyronine Sodium), 12.5 MCG PO QAM Montelukast Sodium (Montelukast Sodium), 10 MG PO QAM Multivitamin (Multivitamin), 1 TAB PO QAM Omeprazole-Sodium Bicarbonate (Omeprazole/Sodium Bicarbo), 1 CAPSULE PO BID Pancrelipase (Lipase-Protease- (Creon 08128), 36,000 UNITS PO TIDM Ranitidine (Zantac), 150 MG PO BID Sucralfate (Carafate), 10 ML PO QID Valacyclovir HCl (Valacyclovir HCl), 500 MG PO BID Scheduled PRN Alprazolam (Alprazolam), 0.25 MG PO TID PRN for Anxiety Fluconazole (Diflucan), 200 MG PO UD PRN for UNDECIDED Flunisolide (Nasal) (Flunisolide), 2 SPRAYS GRECIA DAILY PRN for Allergies Glucagon (Glucagon Emergency Kit), 1 MG UD PRN for HYPOGLYCEMIA PROTOCOL Insulin Glargine (Lantus), 13 UNITS SC UD PRN for Novolog Pump Failure Ondansetron Odt (Zofran Odt), 8 MG SL Q6H PRN for Nausea Oxycodone HCl (Oxycodone HCl), 30 MG PO Q6H PRN for Pain Allergies Coded Allergies: No Known Allergies (Verified , 06/29/16) Physical Exam Vital Signs Date Time Temp Pulse Resp B/P Pulse Ox O2 Delivery O2 Flow Rate FiO2 06/29/16 12:14 110 16 139/75 98 Room Air 06/29/16 10:48 36.8 126 16 136/70 97 Room Air Physical Exam CONSTITUTIONAL: Healthy and well nourished. Alert and oriented X 3 with positive affect. She does not appear in any acute distress. HEENT: Normocephalic, atraumatic. Pupils equal, round and reactive. No scleral icterus or conjunctival injection/pallor. NECK: Full active range of motion without discomfort. RESPIRATORY: Clear to auscultation bilaterally with no wheezing, crackles, rhonchi or stridor. CARDIOVASCULAR: Regular rate and rhythm with no murmurs, rubs or gallops. GASTROINTESTINAL: Bowel sounds present in all quadrants. Patient has epigastric tenderness to palpation. No abdominal rigidity, guarding or rebound. Negative CVA tenderness. MUSCULOSKELETAL: Full range of motion of all joints without discomfort. INTEGUMENTARY: No rash or other significant dermatologic conditions noted. HEMATOLOGIC: No ecchymosis or petechiae. NEUROLOGIC: No focal neurologic deficits noted. Medical Decision & Procedures Laboratory Results 06/29/16 11:42 Red Blood Count 3.71, Mean Corpuscular Volume 100.8, Mean Corpuscular Hemoglobin 35.0, Mean Corpuscular Hemoglobin Concent 34.8, Mean Platelet Volume 9.5, Neutrophils (%) (Auto) 83.9, Lymphocytes (%) (Auto) 10.2, Monocytes (%) ( Auto) 5.0, Eosinophils (%) (Auto) 0.3, Basophils (%) (Auto) 0.4, Neutrophils # ( Auto) 10.28, Lymphocytes # (Auto) 1.25, Monocytes # (Auto) 0.61, Eosinophils # ( Auto) 0.04, Basophils # (Auto) 0.05 06/29/16 11:42 Test 06/29/16 11:42 White Blood Count 12.26 K/uL (4.8-10.8) Red Blood Count 3.71 M/uL (4.2-5.4) Hemoglobin 13.0 g/dL (12.0-16.0) Hematocrit 37.4 % (37-47) Mean Corpuscular Volume 100.8 fL (80-100) Mean Corpuscular Hemoglobin 35.0 pg (25-34) Mean Corpuscular Hemoglobin Concent 34.8 g/dl (32-36) Platelet Count 454 K/uL (130-400) Mean Platelet Volume 9.5 fL (7.4-10.4) Neutrophils (%) (Auto) 83.9 % Lymphocytes (%) (Auto) 10.2 % Monocytes (%) (Auto) 5.0 % Eosinophils (%) (Auto) 0.3 % Basophils (%) (Auto) 0.4 % Neutrophils # (Auto) 10.28 K/uL (1.4-6.5) Lymphocytes # (Auto) 1.25 K/uL (1.2-3.4) Monocytes # (Auto) 0.61 K/uL (0.11-0.59) Eosinophils # (Auto) 0.04 K/uL (0-0.5) Basophils # (Auto) 0.05 K/uL (0-0.2) RDW Standard Deviation 45.2 fL (36.4-46.3) RDW Coefficient of Variation 12.2 % (11.5-14.5) Immature Granulocyte % (Auto) 0.2 % Immature Granulocyte # (Auto) 0.03 K/uL (0.00-0.02) Anion Gap 7.0 mmol/L (3-11) Est Creatinine Clear Calc Drug Dose 51.3 ml/min Estimated GFR () 85.1 Estimated GFR (Non- 73.4 BUN/Creatinine Ratio 14.9 (10-20) Calcium Level 9.3 mg/dl (8.5-10.1) Phosphorus Level 1.9 mg/dl (2.5-4.9) Magnesium Level 2.0 mg/dl (1.8-2.4) Total Bilirubin 0.8 mg/dl (0.2-1) Direct Bilirubin 0.3 mg/dl (0-0.2) Aspartate Amino Transf (AST/SGOT) 11 U/L (15-37) Alanine Aminotransferase (ALT/SGPT) 20 U/L (12-78) Alkaline Phosphatase 115 U/L (45-117) C-Reactive Protein < 0.29 mg/dl (0-0.29) Total Protein 7.4 gm/dl (6.4-8.2) Albumin 4.0 gm/dl (3.4-5.0) Lipase 54 U/L (73-393) Beta-Hydroxybutyric Acid 2.38 mg/dL (0.2-2.81) The above labs were reviewed. Medications Administered Medications (Trade) Dose Ordered Sig/Yang Route Start Time Stop Time Status Last Admin Dose Admin Lidocaine HCl (Viscous Lidocaine 2% Soln) 10 ml NOW STAT PO 06/29/16 11:27 06/29/16 11:30 DC 06/29/16 11:37 10 ML Al Hydroxide/Mg Hydroxide (Maalox Susp) 30 ml NOW STAT PO 06/29/16 11:27 06/29/16 11:30 DC 06/29/16 11:37 30 ML ED Course Patient history and physical exam were performed. Nurse's notes were reviewed. Vital signs were reviewed showing a pulse rate of 126. The patient is otherwise normotensive and afebrile. Patient medical history was also reviewed , including a recent admission for abdominal pain. The patient is requesting only a GI cocktail. Given the patient's history, I did suggest that we at least check some basic lab work. The patient did not want an IV, and is requesting a straight stick lab drawn. She does not feel that she needs hydration. She also refused any cardiac workup. The patient reports that she knows this pain very well, and just wants something for reflux. Read sticks labs were drawn. The patient was administered a GI cocktail. Review of labs shows a glucose of 321. The patient reports that she administered 5 units of regular insulin prior to coming to the hospital as her glucose was in the 500s. The patient also has an elevated white count which she reports is because of her history of splenectomy. She is under the management of a neurology stroke physician/oncologist. She has a mild hypomagnesemia, otherwise remaining labs are grossly normal. The patient did report moderate relief with her GI cocktail, but did request an additional dose prior to discharge. She received a second GI cocktail. The patient reports that she has an appointment next week with Dr. Montgomery. The patient was given further instructions to limit her reflux, including use of NSAIDs, caffeine, alcohol and spicy foods. She was encouraged to try taking Maalox or Gaviscon for additional relief. Return to the emergency department for any progressively worsening symptoms, including chest pain, shortness of breath, diaphoresis, nausea or other concerning symptoms. The patient was happy with plan of care, and voiced understanding of all discharge instructions. Medical Decision Patient presents to the emergency department with complaint of reflux symptoms. The patient refuses a pulmonary workup, however I do feel that the patient is at low risk for DC, CHF, pericarditis, pneumonia, pneumothorax or other acute intrathoracic etiology. She has had a recent upper endoscopy showing esophagitis secondary to GERD. Patient has had multiple abdominal surgeries, but does not have a surgical abdomen on exam today. Impression Primary Impression: Chronic GERD Departure Information Referrals Juan Carlos Sebastian M.D. (PCP) Patient Instructions [facility]
[2016-06-29 13:29] VITALS: BP 114/67; PULSE 99; O2SAT 99
== END 2016-06-29 13:31 | disposition home or self-care (01) ==
LOC: C.EDB 10:38 → C.EDC 13:31
DX: K21.9 Gastro-esophageal reflux disease without esophagitis (principal); E11.9 Type 2 diabetes mellitus without complications; K56.60 Unspecified intestinal obstruction; Z87.81 Personal history of (healed) traumatic fracture; Z90.49 Acquired absence of other specified parts of digestive tract; Z98.890 Other specified postprocedural states; Z79.4 Long term (current) use of insulin; Z79.899 Other long term (current) drug therapy

== ENCOUNTER → 2016-07-05 | Outpatient (CLI) | payer BC ==
[~2016-07-05] MED LIST changes: -ASPI1TAB2 PO; +CRFL PO; +ZNTT/150 PO
--- NOTE | 2016-07-05 16:35 | MAMMOGRAPHY REPORT ---
BILATERAL DIGITAL SCREENING MAMMOGRAM TOMOSYNTHESIS WITH CAD: 07/05/2016 CLINICAL HISTORY: Routine screening. Patient has no complaints. TECHNIQUE: Breast tomosynthesis in addition to standard 2D mammography was performed. Current study was also evaluated with a Computer Aided Detection (CAD) system. COMPARISON: Comparison is made to exams dated: 05/30/2015 mammogram, 05/26/2014 mammogram, 04/13/2013 mammogram, 04/01/2012 mammogram, 01/01/2011 mammogram, and 11/03/2009 mammogram - [facility]. BREAST COMPOSITION: The tissue of both breasts is heterogeneously dense, which may obscure small ma sses. FINDINGS: No suspicious masses, calcifications, or areas of architectural distortion are noted in e ither breast. There has been no significant interval change compared to prior exams. IMPRESSION: ACR BI-RADS CATEGORY 1: NEGATIVE There is no mammographic evidence of malignancy. A 1 year screening mammogram is recommended. The p atient will receive written notification of the results. Approximately 10% of breast cancers are not detected with mammography. A negative mammographic repor t should not delay biopsy if a clinically suggestive mass is present. Krystal Begum M.D. ah/:07/05/2016 13:25:26 Motor Patrol Operator: Monica VASQUEZ(Anton)(Keeley), [facility] letter sent: Normal 1/2 BI-RADS Code: ACR BI-RADS Category 1: Negative
== END | disposition home or self-care (01) ==
LOC: C.MAMM 10:29
PROVIDERS: ATTEND Obstetrics & Gynecology
DX: Z12.31 Encounter for screening mammogram for malignant neoplasm of breast (principal)

== ENCOUNTER → 2016-08-02 | Outpatient (CLI) | payer BC ==
[2016-08-02 09:58] LABS: CALCIUM 9.2 mg/dl (8.5-10.1); CREATININE 0.69 mg/dl (0.60-1.20)
[2016-08-02 10:22] LABS: CALCIUM URINE < 5.0 mg/dl; URINE COLLECTION TIME 24 HOURS
[2016-08-03 15:43] LABS: ALBUMIN 4.1 G/DL (3.8-4.8); GAMMA GLOBULIN 0.8 G/DL (0.8-1.7); TOTAL PROTEIN 6.7 G/DL (6.2-8.3)
== END | disposition home or self-care (01) ==
LOC: C.LAB1850 08:16
PROVIDERS: ATTEND Internal Medicine Rheumatology
DX: M80.059A Age-related osteoporosis with current pathological fracture, unspecified femur, initial encounter for fracture (principal); E55.9 Vitamin D deficiency, unspecified; E61.8 Deficiency of other specified nutrient elements; X58.XXXA Exposure to other specified factors, initial encounter

== ENCOUNTER → 2016-08-09 | Outpatient (CLI) | payer BC | END | disposition home or self-care (01) | LOC: C.MAMM 11:08 | PROVIDERS: ATTEND Internal Medicine Rheumatology | DX: M81.0 Age-related osteoporosis without current pathological fracture (principal); E61.8 Deficiency of other specified nutrient elements; E55.9 Vitamin D deficiency, unspecified; M85.852 Other specified disorders of bone density and structure, left thigh; M85.88 Other specified disorders of bone density and structure, other site ==

== ENCOUNTER → 2016-08-24 | Outpatient (CLI) | payer BC ==
[2016-08-24 13:32] LABS: BASO % 0.6 %; BASO ABS # 0.04 K/uL (0-0.2); COMPLETE YES; EOS % 0.5 %; HEMATOCRIT 39.4 % (37-47); IG% 0.3 %; LYMPH ABS # 2.46 K/uL (1.2-3.4); MEAN CELL VOLUME 104.8 fL (80-100); MEAN CORPUSCULAR HEMOGLOBIN 34.8 pg (25-34); MEAN CORPUSCULAR HGB CONC 33.2 g/dl (32-36); NEUT % 51.6 %; PLATELET COUNT 381 K/uL (130-400); RED BLOOD COUNT 3.76 M/uL (4.2-5.4); WHITE BLOOD COUNT 6.48 K/uL (4.8-10.8)
[2016-08-24 13:36] LABS: ESTIMATED AVERAGE GLUCOSE 232 mg/dl; HA1C FLAG Normal (Normal)
[2016-08-24 13:59] LABS: FERRITIN 55.2 ng/ml (8.0-388.0)
== END | disposition home or self-care (01) ==
LOC: C.LABBC 09:25
PROVIDERS: ATTEND Physician Assistant Medical
DX: K21.9 Gastro-esophageal reflux disease without esophagitis (principal); Q89.01 Asplenia (congenital); E10.65 Type 1 diabetes mellitus with hyperglycemia

== ENCOUNTER → 2016-12-21 | Outpatient (CLI) | payer BC ==
--- NOTE | 2016-12-21 16:33 | DIAGNOSTIC IMAGING REPORT ---
LUMBAR SPINE W/O CONTRAST CLINICAL HISTORY: 56 years-old Female presenting with DDD, STENOSIS, severe lumbar pain radiating into the left leg for 2 1/2 months. TECHNIQUE: Multisequence, multiplanar MR imaging of the lumbar spine was performed without the use of intravenous contrast. IV contrast: None. COMPARISON: Correlation made to CT from 05/06/2016. FINDINGS: Localizer images: Unremarkable. Straightening of normal lumbar lordosis. The spinal canal may be narrow on a developmental basis. T1 hyperintense, T2 hyperintense fat-containing lesion in L4 consistent with benign hemangioma. Fatty endplate changes noted at L4-5. Otherwise, vertebral bodies maintain normal height, alignment, and normal bone marrow signal intensity. Intervertebral disc height loss to the greatest degree at L4-5 with lesser degrees of height loss noted at L3-4 and L5-S1. Degenerative changes further detailed below: L1-2: Minimal disc bulge. No significant spinal canal or neural foraminal narrowing. L2-3: Normal. L3-4: Minimal disc bulge, facet arthropathy, ligamentum flavum thickening with mild right neural foraminal narrowing. An annular tear may be present at this level (series 7 images 7 and 8). No significant spinal canal narrowing. L4-5: Disc bulge with slight eccentric far right lateral protrusion along the right neural foramen potentially abutting the exiting right L4 nerve root. There is also evidence of disc extrusion with slight cranial migration centrally which causes right paracentral effacement of the ventral thecal sac. Overall mild right and moderate left neural foraminal narrowing secondary to facet arthropathy. L5-S1: Disc bulge, facet arthropathy, and ligamentum flavum thickening result in abutment of the transiting S1 nerve roots and abutment of the exiting L5 nerve roots. Mild right and moderate left neural foraminal narrowing. Mild circumferential effacement of the thecal sac. The spinal cord ends in good position at L1. Cauda equina normal in morphology. No paraspinal edema. Remaining visualized soft tissues within normal limits. IMPRESSION: 1. Multilevel degenerative changes with varying degrees of neural foraminal narrowing most severe at L4-5 and L5-S1, greater on the left. Abutment of exiting and transiting nerve roots as above. No evidence of cauda equina impingement. Electronically signed by: Juan Carlos Zavala M.D. 12/21/2016 4:32 PM Dictated Date/Time: 12/21/2016 4:21 PM
== END | disposition home or self-care (01) ==
LOC: C.MRI 15:31
PROVIDERS: ATTEND Orthopaedic Surgery Orthopaedic Surgery of the Spine
DX: M51.36 Other intervertebral disc degeneration, lumbar region (principal); M48.061 Spinal stenosis, lumbar region without neurogenic claudication; M51.26 Other intervertebral disc displacement, lumbar region

== ENCOUNTER → 2017-05-16 | Outpatient (CLI) | payer BC ==
[~2017-05-16] MED LIST changes: -FOLI1TAB7 PO; +FOLI1TAB8 PO; +RANI150T85 PO; -ZNTT/150 PO
--- NOTE | 2017-05-16 18:17 | DIAGNOSTIC IMAGING REPORT ---
L RIBS UNILATERAL WITH PA CHEST CLINICAL HISTORY: 56 years-old Female presenting with R07.89 Pain, chest wallRADLeft. TECHNIQUE: Frontal and oblique views of the left ribs as well as PA view of the chest were obtained. COMPARISON: Chest x-ray from 05/06/2016. FINDINGS: Osteopenia suspected. No displaced left rib fracture. Dextroscoliotic curvature of the lower thoracic spine. Atherosclerosis of the aortic arch. Cardiac silhouette top normal in size. Lungs and pleural spaces clear. Cholecystectomy clips and additional surgical clips project over the epigastrium. IMPRESSION: 1. No acute cardiopulmonary disease. 2. No displaced left rib fracture. Electronically signed by: Juan Carlos Zavala M.D. 05/16/2017 6:16 PM Dictated Date/Time: 05/16/2017 6:14 PM
== END | disposition home or self-care (01) ==
LOC: C.RAD 17:11
PROVIDERS: ATTEND Internal Medicine
DX: R07.89 Other chest pain (principal)

== ENCOUNTER → 2017-07-15 | Outpatient (CLI) | payer BC ==
--- NOTE | 2017-07-15 13:49 | DIAGNOSTIC IMAGING REPORT ---
R ELBOW MIN 3 VIEWS ROUTINE HISTORY: 56 years-old Female M79.643 Pain in [id number] Fall, [id number] acute right elbow pain status post fall COMPARISON: None available TECHNIQUE: 3 views of the right elbow FINDINGS: Minimal marginal spurring about the medial and lateral epicondyles. Radial head appears intact. There is no acute fracture, dislocation or large joint effusion. No opaque foreign body. IMPRESSION: No acute fracture or dislocation. The above report was generated using voice recognition software. It may contain grammatical, syntax or spelling errors. Electronically signed by: Korey Lopez M.D. 07/15/2017 1:47 PM Dictated Date/Time: 07/15/2017 1:47 PM
--- NOTE | 2017-07-15 13:55 | DIAGNOSTIC IMAGING REPORT ---
R WRIST MIN 3 VIEWS ROUTINE CLINICAL HISTORY: Right wrist pain following fall. COMPARISON: None FINDINGS: Alignment of the right wrist is anatomic. There is no acute fracture. There is mild osteoarthritis of the right radiocarpal articulation. IMPRESSION: No acute fracture or dislocation of the right wrist. Electronically signed by: Kelton Perea M.D. 07/15/2017 1:54 PM Dictated Date/Time: 07/15/2017 1:53 PM
--- NOTE | 2017-07-15 13:56 | DIAGNOSTIC IMAGING REPORT ---
R HAND MIN 3 VIEWS ROUTINE CLINICAL HISTORY: Right hand pain following fall. COMPARISON: None FINDINGS: Alignment of the right hand is anatomic. No acute fracture is identified. There is mild osteoarthritis within multiple articulations of the right hand. IMPRESSION: No acute fracture or dislocation of the right hand. Electronically signed by: Kelton Perea M.D. 07/15/2017 1:55 PM Dictated Date/Time: 07/15/2017 1:54 PM
== END | disposition home or self-care (01) ==
LOC: C.RAD 13:09
PROVIDERS: ATTEND Internal Medicine
DX: M79.641 Pain in right hand (principal); W19.XXXA Unspecified fall, initial encounter

== ENCOUNTER → 2017-08-06 | Day surgery (SDC) | payer BC ==
[2017-07-30 10:26] VITALS: Ht 154.9 cm; Wt 43.6 kg
[~2017-08-06] VITALS: Ht 154.9 cm; Wt 43.6 kg
[~2017-08-06] MED LIST changes: +ALUMCHW2 PO; +ATROPINE SULFATE 0.1 MG/ML 5ML SYR IV PRN; +BUPIVACAINE 0.5 % 5 MG/1 ML PF 10ML VIAL ONE; +CALC-393 PO; -CALC1CAP24 PO; +CEFAZOLIN 1000MG IV PUSH 7.5 ML IV SCH; -CHOL1000 PO; +CHOL20007 PO; +CLIN300C2 PO; -CONJ0.3T3 PO; -CYTM25 PO; +DICY10CA12 PO; +DRGTP12 EXT; +ESTCR PV; +ESTR0.3T PO; +EpHEDrine SULFATE INJ 50 MG/ML AMP IV PRN; +FAMO40TA6 PO; -FENT12DI6 TD; -FENT25DI10 TD; +FENTANYL CITRATE INJ 50 MCG/1 ML 2 ML VIAL ONE; -FLUC200T4 PO; +FLV1 PO; +FNTTP25 EXT; -FOLI1TAB8 PO; -GLGKIT; -HYOS0.3725 PO; +HYSSR375 PO; -INSDGI SC; +LACTATED RINGER'S 1000ML 1,000 ML IV SCH; +LIDO2SOL19 PO; +LIDOCAINE HCL 1% 20 ML VIAL ONE; +LIDOCAINE HCL 2% 2 ML VIAL (20MG/ML) ONE; +MIDAZOLAM HCL 1 MG/ML 2ML VIAL ONE; +ONDA-170 PO; -ONDA8TAB62 SL; +ONDANSETRON INJ 2 MG/ML 2 ML VIAL IV PRN; +OXYC-106 PO; +OXYCODONE/ACETAMINOPHEN 5-325 TAB PO PRN; +PROPOFOL IV EMULSION 10 MG/ML 20 ML VIAL ONE; -RANI150T85 PO; -RXC30 PO; +SODIUM CHLORIDE 0.9% 1000ML 1,000 ML IV SCH; +VALA500T60 PO; -VLT500 PO; +ZOLE5INJ INJ; +[UNRECOGNIZED DRUG - CODE]; +[UNRECOGNIZED DRUG - CODE] PO
--- NOTE | 2017-08-06 06:39 | History & Physical Bridge - SC ---
H&P Re-Evaluation Bridge Note: I have examined the patient, reviewed the History & Physical and in the interval since the performance of the History & Physical I have noted the following changes of clinical significance: No changes noted
--- NOTE | 2017-08-06 07:08 | [facility] Post Operative Brief Note ---
Immediate Operative Summary Operative Date August 06, 2017. Pre-Operative Diagnosis Hand Pain, Pain in Wrist Post-Operative Diagnosis Same Procedure(s) Performed Right Index Finger Trigger Finger Release Surgeon Dr. Stark Client Integration Manager Surgeon(s) Dallas Davis Pa-C Estimated Blood Loss 0ml Findings Consistent with Post-Op Diagnosis Specimens None Drains None Anesthesia Type MAC Complication(s) none Disposition Disposition:
[2017-08-06 07:12] VITALS: TEMP 36.7
--- NOTE | 2017-08-06 07:12 | Discharge Instructions-SurgCtr ---
Discharge Instructions Date of Service August 06, 2017. Visit Reason for Visit: Hand Pain, Pain In Wrist Discharge Discharge Diagnosis / Problem: SAME ABOVE Discharge Goals Goal(s): Decrease discomfort, Improve function Activity Recommendations Activity Limitations: as noted below Lifting Limitations: until after follow-up appointment Exercise/Sports Limitations: until after follow-up appointment Shower/Bathe: tomorrow Anesthesia . Post Anesthesia Instructions: If you have had General Anesthesia or IV Sedation: * Do not drive today. * Resume driving when surgeon permits. * Do not make important decisions or sign legal documents today. * Call surgeon for: 1. Temperature elevations greater than 101 degrees F. 2. Uncontrollable pain. 3. Excessive bleeding. 4. Persistent nausea and vomiting. 5. Medication intolerance (nausea, vomiting or rash). * For nausea and vomiting use only clear liquids such as: tea, soda, bouillon until nausea subsides, then gradually increase diet as tolerated. * If you have any concerns or questions, call your surgeon's office. If physician is unavailable and it is an emergency, call 911 or go to the nearest emergency room. . Instructions / Follow-Up Instructions / Follow-Up MEDICATIONS: * Resume previous medications unless instructed otherwise by your surgeon. * Always take pain medication on a full stomach or with food to avoid upset stomach. * Do not drink alcohol or drive while taking narcotics. * Ibuprofen or Tylenol may be taken if narcotic not needed. SPECIAL CARE INSTRUCTIONS: __ None _X_ Keep extremity elevated and iced x 48 hours; apply ice 20-30 minutes 8-10 times/day. May remove at night. __ Sling __24 hrs/day __ Remove at night __ Shoulder Immobilizer __ 24 hrs/day __ Remove at night _X_ Dressing __ Maintain until seen in office, may shower with plastic over site _X_ Remove dressings in 24-48 hours and then may shower _X_ Cover incisions with band-aids after showering __ Do not remove steri-strips Call physician if chills or temperature rises above 102 degrees or pain unrelieved by prescribed pain medications at . . Diet Recommendations Home Diet: resume previous diet Procedures Procedures Performed: Right Index Finger Trigger Finger Release Pending Studies Studies pending at discharge: no Medical Emergencies . Who to Call and When: Medical Emergencies: If at any time you feel your situation is an emergency, please call 911 immediately. . Non-Emergent Contact Non-Emergency issues call your: Primary Care Provider . . "Provider Documentation" section prepared by Dallas Davis. .
--- NOTE | 2017-08-06 07:29 | Anesthesia Progress Nt - [facility] ---
Anesthesia Post Op Note Date & Time August 06, 2017 at 07:29 Vital Signs Pain Intensity: 0 Vital Signs Past 12 Hours Date Time Temp Pulse Resp B/P (MAP) Pulse Ox O2 Delivery O2 Flow Rate FiO2 08/06/17 07:12 36.7 87 16 98/60 (73) 98 Room Air 08/06/17 06:41 37.2 110 18 137/69 (91) 97 Room Air Notes Mental Status: alert / awake / arousable, participated in evaluation Pt Amnestic to Procedure: Yes Nausea / Vomiting: adequately controlled Pain: adequately controlled Airway Patency, RR, SpO2: stable & adequate BP & HR: stable & adequate Hydration State: stable & adequate Anesthetic Complications: no major complications apparent
[2017-08-06 07:39] VITALS: BP 111/65; PULSE 89; O2SAT 98
--- NOTE | 2017-08-06 08:11 | OPERATIVE REPORT ---
DATE OF OPERATION: 08/06/2017 PREOPERATIVE DIAGNOSIS: Right index trigger finger. POSTOPERATIVE DIAGNOSIS: Right index trigger finger. PROCEDURE: Decompression and release of A1 uday, right index finger. SURGEON: Juan Carlos Stark MD DROSSER: Dallas Davis PA-C ANESTHESIOLOGIST: Dallas Ladd MD ANESTHESIA: IV sedation with local. DRAINS: None. COMPLICATIONS: None. CONDITION: The patient tolerated the procedure well and returned to the recovery room in apparent satisfactory condition. INDICATIONS FOR SURGERY: Obdulia is a 57-year-old female well-known to me having had trigger fingers before, who presents now with a chronic painful right index trigger finger. We went over treatment options and she elected to go ahead and proceed with surgery. Procedure, expected outcomes, and side effects were all explained in detail. DESCRIPTION OF PROCEDURE: The patient was taken to the OR at which time she was placed supine on the operating table and given IV sedation. The right hand was prepped and draped in usual sterile fashion for surgery. We exsanguinated the hand and performed tourniquet up to 250 mmHg. I made a transverse incision over the A1 uday with loupe magnification, we dissected down, and under direct observation, we divided the A1 uday with an 11 blade and tenotomy scissors. The finger was taken through range of motion, no longer triggering. The wound was irrigated. The incision was closed with interrupted 4-0 nylon sutures. Marcaine without epinephrine was placed in skin edges, placed sterile dressings, Xeroform, 4 x 4, and gauze with Coban and returned to recovery room in apparent satisfactory condition. I attest to the content of the Intraoperative Record and any orders documented therein. Any exception s are noted below.
== END | disposition home or self-care (01) ==
LOC: X.SURG 06:12
PROVIDERS: ATTEND Orthopaedic Surgery
DX: M65.321 Trigger finger, right index finger (principal); E11.9 Type 2 diabetes mellitus without complications; F41.9 Anxiety disorder, unspecified; F32.9 Major depressive disorder, single episode, unspecified; E78.5 Hyperlipidemia, unspecified; E03.9 Hypothyroidism, unspecified; Z98.890 Other specified postprocedural states; Z90.49 Acquired absence of other specified parts of digestive tract; Z79.899 Other long term (current) drug therapy; Z90.89 Acquired absence of other organs

== ENCOUNTER → 2017-11-08 | Outpatient (CLI) | payer BC ==
[~2017-11-08] MED LIST changes: -ATROPINE SULFATE 0.1 MG/ML 5ML SYR IV PRN; -BUPIVACAINE 0.5 % 5 MG/1 ML PF 10ML VIAL ONE; -CEFAZOLIN 1000MG IV PUSH 7.5 ML IV SCH; -EpHEDrine SULFATE INJ 50 MG/ML AMP IV PRN; -FENTANYL CITRATE INJ 50 MCG/1 ML 2 ML VIAL ONE; -LACTATED RINGER'S 1000ML 1,000 ML IV SCH; -LIDOCAINE HCL 1% 20 ML VIAL ONE; -LIDOCAINE HCL 2% 2 ML VIAL (20MG/ML) ONE; -MIDAZOLAM HCL 1 MG/ML 2ML VIAL ONE; -ONDANSETRON INJ 2 MG/ML 2 ML VIAL IV PRN; -OXYC-106 PO; +OXYC-594 PO; -OXYCODONE/ACETAMINOPHEN 5-325 TAB PO PRN; -PROPOFOL IV EMULSION 10 MG/ML 20 ML VIAL ONE; -SODIUM CHLORIDE 0.9% 1000ML 1,000 ML IV SCH
[2017-11-08 14:15] LABS: BLOOD UREA NITROGEN 9 mg/dl (7-18); CALCIUM 8.9 mg/dl (8.5-10.1); CARBON DIOXIDE 30 mmol/L (21-32); CREATININE 0.59 mg/dl (0.60-1.20); GLUCOSE 298 mg/dl (70-99); POTASSIUM 4.2 mmol/L (3.5-5.1); SODIUM 136 mmol/L (136-145)
== END | disposition home or self-care (01) ==
LOC: C.LABBC 09:56
PROVIDERS: ATTEND Internal Medicine
DX: E87.6 Hypokalemia (principal)

== ENCOUNTER 2018-06-26 22:04 | Inpatient (IN) ==
[2018-06-26] MEDS ORDERED: ONDANSETRON INJ 2 MG/ML 2 ML VIAL IV STA (22:46)
[2018-06-26 23:00] LABS: Hematocrit (blood only) 40.4 % (37-47); Hemoglobin 13.7 g/dL (12.0-16.0); Mean Corpuscular Hgb Conc 33.9 g/dL (32-36); Mean Corpuscular Volume 106.9 fL (80-100); Mean Platelet Volume 10.5 fL (7.4-10.4); Platelet Count 361 K/uL (130-400); RDW Coefficient of Variation 12.7 % (11.5-14.5); RDW Standard Deviation 49.8 fL (36.4-46.3); Red Blood Count 3.78 M/uL (4.2-5.4); White Blood Count 25.23 K/uL (4.8-10.8)
[2018-06-26] MEDS ORDERED: SODIUM CHLORIDE 0.9% 1000ML 1,000 ML IV SCH (23:00)
[2018-06-26 23:26] LABS: Basophils # (auto) 0.02 K/uL (0-0.2); Basophils % (auto) 0.1 %; Echinocytes 1+; Immature Granulocytes # (auto) 0.13 K/uL (0.00-0.02); Immature Granulocytes % (auto) 0.5 %; Lymphocytes # (auto) 1.75 K/uL (1.2-3.4); Lymphocytes % (auto) 6.9 %; Monocytes # (auto) 2.47 K/uL (0.11-0.59); Monocytes % (auto) 9.8 %; Neutrophils # (auto) 20.86 K/uL (1.4-6.5); Neutrophils % (auto) 82.7 %; Toxic Vacuolation 2+
[2018-06-26 23:29] LABS: Alanine Aminotransferase 20 U/L (12-78); Albumin Globulin Ratio 1.2 (0.9-2); Albumin Level 4.7 gm/dl (3.4-5.0); Alkaline Phosphatase 104 U/L (45-117); Bilirubin,Total 0.8 mg/dl (0.2-1); Blood Urea Nitrogen 26 mg/dl (7-18); Carbon Dioxide 8 mmol/L (21-32); Chloride 95 mmol/L (98-107); Creatinine Clr Calc Pharmacy 31.8 ml/min; Est GFR (African American) 51.4; Est GFR (Non-African American) 44.4; Globulin 3.8 gm/dl (2.5-4.0); Glucose 602 mg/dl (70-99); Phosphorus 5.3 mg/dl (2.5-4.9); Sodium 128 mmol/L (136-145); Total Protein 8.5 gm/dl (6.4-8.2); Troponin I < 0.015 ng/ml (0-0.045)
[2018-06-26 23:47] LABS: Appearance Urine Clear (Clear); Bilirubin Urine Negative (Negative); Blood Urine Negative (Negative); Color Urine Yellow; Glucose Urine UA 3+ (Negative); Leukocyte Esterase Urine Negative (Negative); Nitrite Urine Negative (Negative); Protein Urine Negative (Negative); Specific Gravity Urine 1.023 (1.000-1.030); Urobilinogen Urine Negative (Negative)
[2018-06-27] LABS: Ketones Urine 4+ (Negative)
[2018-06-27] MEDS ORDERED: NovoLIN-R INSULIN PER UNIT CHARGE IV STA ×2 (00:39→00:41)
[2018-06-27] MEDS ORDERED: DKA GOAL RANGE 150-250 mg/dl ONE ×2 (00:39→03:32)
[2018-06-27 00:42] LABS: Base Excess VBG -19.2 mEq/L; Oxygen Saturation VBG 77.7 %; pH VBG 7.17 (7.36-7.41)
[2018-06-27] MEDS ORDERED: MODERATE STRESS LEVEL ONE ×2 (00:45→03:32)
[2018-06-27] MEDS ORDERED: SODIUM CHLORIDE 0.9% 1000ML 1,000 ML IV SCH (00:45)
[2018-06-27 00:55] LABS: Potassium 5.1 mmol/L (3.5-5.1)
[2018-06-27] MEDS ORDERED: CARBOHYDRATES FOR HYPOGLYCEMIA PO PRN (01:00)
[2018-06-27] MEDS ORDERED: GLUCOSE 10 TABS/TUBE PO PRN (01:00)
[2018-06-27] MEDS ORDERED: GLUCAGON FOR INJ 1 MG VIAL IM PRN (01:00)
[2018-06-27] MEDS ORDERED: GLUCOSE 40% GEL 15 GM TUBE PO PRN (01:00)
[2018-06-27] MEDS ORDERED: DEXTROSE 50% 50 ML SYRINGE IV PRN (01:00)
[2018-06-27 01:01] LABS: Magnesium 2.5 mg/dl (1.8-2.4)
[2018-06-27] MEDS ORDERED: IOVERSOL 100ml IV PRN (01:08)
[2018-06-27] MEDS ORDERED: INSULIN HUMAN REGULAR IV BOLUS 1 UNITS in SYRINGE 0 ML IV ONE (01:15)
[2018-06-27] MEDS: INSULIN REGULAR 250 UNITS in SODIUM CHLORIDE 0.9% 247.5 ML IV SCH (01:22)
--- NOTE | 2018-06-27 01:37 | Emergency Department Note ---
Entered by Ashli Smith acting as a scribe for History of Present Illness General Chief complaint: Hyperglycemia Stated complaint: DKA, VOMITING Source: patient History of Present Illness Onset (ago): day(s) (few) Severity: similar to prior episodes Pain Consistency: + other (persistent) Maximum Pain Intensity: 7 Quality: + other (hyperglycemia) Associated symptoms: + headaches, + nausea/vomiting and + other (positive intermittent abdominal cramping; negative cold symptoms); no chest pain, no fever/chills and no shortness of breath Treatments prior to arrival: other (Zofran) The patient is a 57 year old female who presents to the Emergency Room with complaints of persistent hyperglycemia that began a few days ago. The patient states that her sugar level was over 600 just prior to arrival. The patient states that she has had a headache, nausea, vomiting, and intermittent abdominal cramping during this time. She denies fevers, cold symptoms, chest pain, and shortness of breath. The patient states that this is similar to prior episodes. The patient states that she took Zofran today, and states that it relieved her symptoms. 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 Home Medications Home Medications Medication Instructions Recorded Confirmed Type alprazolam 0.25 mg PO TID 06/26/18 06/26/18 History atorvastatin 20 mg PO HS 06/26/18 06/26/18 History bupropion HCl 150 mg PO BID 06/26/18 06/26/18 History calcium carbonate [Calcium 600] 600 mg PO DAILY 06/26/18 06/26/18 History cholecalciferol (vitamin D3) 2,000 unit PO DAILY 06/26/18 06/26/18 History [Vitamin D3] conjugated estrogens [Premarin] 0.3 mg PO DAILY 06/26/18 06/26/18 History estradiol 1 g VAGINAL 2XWK PRN 06/26/18 06/26/18 History famotidine 40 mg PO BID 06/26/18 06/26/18 History fentanyl 12 mcg TOPICAL Q3D 06/26/18 06/26/18 History fentanyl 25 mcg TOPICAL Q3D 06/26/18 06/26/18 History folic acid 1 mg PO DAILY 06/26/18 06/26/18 History glucagon (human recombinant) 1 dose SUBCUT UD PRN 06/26/18 06/26/18 History hyoscyamine sulfate 0.375 mg PO BID 06/26/18 06/26/18 History insulin aspart U-100 [Novolog 1 dose SUBCUT UD 06/26/18 06/26/18 History U-100 Insulin aspart] insulin glargine [Lantus U-100 12 unit SUBCUT HS PRN 06/26/18 06/26/18 History Insulin] levothyroxine 50 mcg PO DAILY 06/26/18 06/26/18 History lidocaine HCl [Lidocaine Viscous] 2 tsp PO UD 06/26/18 06/26/18 History liothyronine 12.5 mcg PO DAILY 06/26/18 06/26/18 History jdcaac-hqbjwtcg-dxjeszc [Creon] 3 cap PO UD 06/26/18 06/26/18 History medroxyprogesterone 2.5 mg PO DAILY 06/26/18 06/26/18 History montelukast 10 mg PO DAILY 06/26/18 06/26/18 History multivitamin 1 tab PO DAILY 06/26/18 06/26/18 History nystatin-triamcinolone 1 applic TOPICAL TID PRN 06/26/18 06/26/18 History omeprazole-sodium bicarbonate 1 tab PO BID 06/26/18 06/26/18 History ondansetron 8 mg PO Q6H PRN 06/26/18 06/26/18 History oxycodone-acetaminophen 1 tab PO QID PRN 06/26/18 06/26/18 History sucralfate [Carafate] 10 ml PO QID PRN 06/26/18 06/26/18 History valacyclovir 500 mg PO BID 06/26/18 06/26/18 History zoledronic etcp-xberemmq-eyhle 5 mg IV UD 06/26/18 06/26/18 History Allergies Allergy/AdvReac Type Severity Reaction Status Date / Time No Known Allergies Allergy Verified 06/26/18 22:49 Past Med/Surg History Medical History DKA (diabetic ketoacidoses) (Acute) Small bowel obstruction (Resolved 12/21/12) Social History Preferred Language: Swedish Feels Safe at Home: Yes Smoking Status: Never smoker Review of Systems See HPI for pertinent positives & negatives. and A total of 10 systems reviewed and were otherwise negative Physical Exam Vital Signs Vital Signs - 24 hr 06/26/18 22:12 06/26/18 22:37 06/26/18 22:39 Temperature 36.7 C Temperature Source Oral Sepsis Recent Fever Within 48 Hours No Sepsis Action Taken by Nursing No Action Required Pulse Rate 107 H 100 H Pulse Rate [Apical] 101 H Pulse Rate from SpO2 Sensor 101 H Respiratory Rate 18 23 22 Respiratory Effort / Characteristics Non-Labored Spontaneous Non-Labored Spontaneous Respiratory Depth Normal Normal Respiratory Pattern Regular Regular Blood Pressure 106/54 L 136/71 Blood Pressure [Left Arm] 136/71 Blood Pressure Mean 71 92 Blood Pressure Mean [Left Arm] 92 Blood Pressure Position Sitting Pulse Oximetry 99 100 100 Oxygen Delivery Method Room Air Room Air 06/26/18 23:00 06/26/18 23:30 06/27/18 00:43 Temperature Temperature Source Sepsis Recent Fever Within 48 Hours Sepsis Action Taken by Nursing Pulse Rate 103 H 101 H Pulse Rate [Apical] Pulse Rate from SpO2 Sensor 104 H 101 H Respiratory Rate 28 H 25 H Respiratory Effort / Characteristics Respiratory Depth Respiratory Pattern Blood Pressure 141/76 H 133/70 114/71 Blood Pressure [Left Arm] Blood Pressure Mean 97 91 85 Blood Pressure Mean [Left Arm] Blood Pressure Position Pulse Oximetry 100 100 Oxygen Delivery Method 06/27/18 01:03 06/27/18 01:37 Temperature Temperature Source Sepsis Recent Fever Within 48 Hours Sepsis Action Taken by Nursing Pulse Rate 109 H 110 H Pulse Rate [Apical] Pulse Rate from SpO2 Sensor 109 H 110 H Respiratory Rate 26 H 20 Respiratory Effort / Characteristics Respiratory Depth Respiratory Pattern Blood Pressure 134/85 142/71 H Blood Pressure [Left Arm] Blood Pressure Mean 101 94 Blood Pressure Mean [Left Arm] Blood Pressure Position Pulse Oximetry 100 100 Oxygen Delivery Method GENERAL: Awake, alert, fatigued-appearing, thin in appearance HENT: Normocephalic, atraumatic. EYES: Normal conjunctiva. Sclera non-icteric. NECK: Supple. No nuchal rigidity. RESPIRATORY: Clear to auscultation. No wheezes. Slightly increased respiratory effort. CARDIAC: Tachycardic rate. Normal rhythm. Extremities warm and well perfused. GI: Soft, non-distended. Mild abdomen tenderness. No rebound or guarding. No masses. RECTAL: Deferred. MUSCULOSKELETAL: Atraumatic. Chest examination reveals no tenderness. LOWER EXTREMITIES: Calves are equal size bilaterally and non-tender. No edema NEURO: Normal sensorium. No sensory or motor deficits noted. No facial droop. SKIN: Warm and dry. No rash or jaundice noted. Procedures Free Text Procedures Central Venous Catheter Indication: vascular access, frequent blood draws, DKA Catheter type: triple lumen Location: right IJ Verbal consent was obtained after the risks and benefits were explained, in cluding but not limited to pneumothorax, hemothorax, vessel injury, bleeding, scarring, infection, pain, and bone/joint/nerve damage. At this time, the risks of the procedure are less than the risks of NOT performing the procedure. A time out was taken and the correct patient and site identified. The patient was placed in the supine position and the skin was prepped in the standard fashion with chlorhexidine and full sterile drapes applied. The proper landmarks were identified with ultrasound, anesthetized with 1% lidocaine without epinephrine, and the needle was inserted through the skin in the standard fashion. The needle was carefully advanced into blood vessel lumen under ultrasound guidance. Patient abruptly moved requiring second puncture. Small superficial hematoma noted. The guidewire was placed uneventfully on the second puncture. The vessel is dilated and the catheter was placed. It was sutured into position. There was good blood return from all ports. The patient tolerated the procedure and small superficial hematoma noted at site. Post procedure x-ray was normal with placement in to SVC. Course 2240: The patient was evaluated in room B2, and a complete history and physical examination were performed. 0050: I discussed the [facility] who accepted the patient for further evaluation. Consultations Consultation #1: I discussed the case [facility] who accepted the patient for further evaluation. Time: 00:50 Administered Medications Insulin Human Regular 250 (units/ Sodium Chloride) 250 mls @ 1.1 mls/hr IV .Q24H [facility]; Protocol Stop: 07/27/18 01:14 Last Admin: 06/27/18 01:22 Dose: 1.1 units/hr, 1.1 mls/hr Documented by: [id number] Cosigned by: [id number] Ioversol (Optiray 320 100ml) 100 ml IV ONCE PRN PRN Reason: Interaction Checking Stop: 07/01/18 01:07 Last Admin: 06/27/18 01:08 Dose: 92 ml Documented by: [id number] Discontinued Medications Sodium Chloride (Nss 1000ml) 1,000 mls @ 999 mls/hr IV .Q1H1M DAGOBERTO Stop: 06/27/18 00:00 Last Admin: 06/26/18 22:57 Dose: 999 mls/hr Documented by: [id number] Sodium Chloride (Nss 1000ml) 1,000 mls @ 999 mls/hr IV .Q1H1M DAGOBERTO Stop: 06/27/18 01:45 Last Admin: 06/27/18 01:24 Dose: 999 mls/hr Documented by: [id number] Insulin Human Regular 1 units/ (Syringe) 1 mls @ 0 mls/min IV TODAY@0115 ONE Stop: 06/27/18 01:16 Last Admin: 06/27/18 01:21 Dose: 1 mls/min Documented by: [id number] Cosigned by: [id number] Ondansetron HCl (Zofran) 4 mg IV NOW STA Stop: 06/26/18 22:47 Last Admin: 06/26/18 22:56 Dose: 4 mg Documented by: [id number] Medical Decision Making Differential Diagnosis Differential diagnosis: Etiologies such as biliary colic, cholecystitis, hepatitis, perihepatitis, pancreatitis, cardiac disease, pancreatitis, gastritis, peptic ulcer disease, appendicitis, ovarian cyst, ovarian torsion, ectopic , pelvic inflammatory disease, cystitis, diverticulitis, mesenteric ischemia, inflammatory bowel disease, ileus, bowel obstruction, aortic pathology, shingles , as well as others were considered. Medical Records Attestation: I reviewed the patient's medical records. Home Medications Current Medication List: was personally reviewed by me Laboratory Data Attestation: I reviewed the patient's lab results. Result diagrams: 06/26/18 22:26 06/27/18 00:31 Lab Results 06/26/18 06/26/18 06/26/18 Range/Units 22:22 22:26 22:26 WBC 25.23 H (4.8-10.8) K/uL RBC 3.78 L (4.2-5.4) M/uL Hgb 13.7 (12.0-16.0) g/dL Hct 40.4 (37-47) % MCV 106.9 H (80-100) fL MCH 36.2 H (25-34) pg MCHC 33.9 (32-36) g/dL RDW Std Deviation 49.8 H (36.4-46.3) fL RDW Coeff of Leopoldo 12.7 (11.5-14.5) % Plt Count 361 (130-400) K/uL MPV 10.5 H (7.4-10.4) fL Immature Gran % (Auto) 0.5 % Neut % (Auto) 82.7 % Lymph % (Auto) 6.9 % [place] % (Auto) 9.8 % Eos % (Auto) 0.0 % Baso % (Auto) 0.1 % Immature Gran # (Auto) 0.13 H (0.00-0.02) K/uL Neut # (Auto) 20.86 H (1.4-6.5) K/uL Lymph # (Auto) 1.75 (1.2-3.4) K/uL [place] # (Auto) 2.47 H (0.11-0.59) K/uL Eos # (Auto) 0.00 (0-0.5) K/uL Baso # (Auto) 0.02 (0-0.2) K/uL Toxic Vacuolation 2+ Echinocytes 1+ VBG pH (7.36-7.41) VBG pCO2 (38-50) mmHg VBG pO2 mmHg VBG HCO3 mmol/L VBG O2 Saturation % VBG Base Excess mEq/L Barometric Pressure mm/Hg Sodium 128 L (136-145) mmol/L Potassium (3.5-5.1) mmol/L Chloride 95 L (98-107) mmol/L Carbon Dioxide 8 L* (21-32) mmol/L Anion Gap 24.0 H (3-11) BUN 26 H (7-18) mg/dl Creatinine 1.32 H (0.6-1.2) mg/dl Est Cr Clr Drug Dosing 31.8 ml/min Est GFR ( Amer) 51.4 Est GFR (Non-Af Amer) 44.4 BUN/Creatinine Ratio 20.0 (10-20) Glucose 602 H* (70-99) mg/dl POC Glucose 561 H* (70-99) Lactate (0.4-2.0) mmol/L Calcium 10.0 (8.5-10.1) mg/dl Phosphorus 5.3 H (2.5-4.9) mg/dl Magnesium (1.8-2.4) mg/dl Total Bilirubin 0.8 (0.2-1) mg/dl AST (15-37) U/L ALT 20 (12-78) U/L Alkaline Phosphatase 104 (45-117) U/L Troponin I < 0.015 (0-0.045) ng/ml Total Protein 8.5 H (6.4-8.2) gm/dl Albumin 4.7 (3.4-5.0) gm/dl Globulin 3.8 (2.5-4.0) gm/dl Albumin/Globulin Ratio 1.2 (0.9-2) Lipase 22 L (73-393) U/L Beta-Hydroxybutyric Acd 80.36 H (0.2-2.81) mg/dl Urine Color Urine Appearance (Clear) Urine pH (4.5-7.5) Ur Specific [place] (1.000-1.030) Urine Protein (Negative) POC Urine Protein (Negative) Urine Glucose (UA) (Negative) POC Ur Glucose (UA) (Normal) Urine Ketones (Negative) POC Urine Ketones (Negative) Urine Blood (Negative) POC Urine Blood (Negative) Urine Nitrite (Negative) POC Urine Nitrite (Negative) Urine Bilirubin (Negative) POC Urine Bilirubin (Negative) Urine Urobilinogen (Negative) POC Urine Urobilinogen (Normal) Ur Leukocyte Esterase (Negative) POC U Leukocyte Esteras (Negative) 06/26/18 06/26/18 06/27/18 Range/Units 23:26 23:26 00:31 WBC (4.8-10.8) K/uL RBC (4.2-5.4) M/uL Hgb (12.0-16.0) g/dL Hct (37-47) % MCV (80-100) fL MCH (25-34) pg MCHC (32-36) g/dL RDW Std Deviation (36.4-46.3) fL RDW Coeff of Leopoldo (11.5-14.5) % Plt Count (130-400) K/uL MPV (7.4-10.4) fL Immature Gran % (Auto) % Neut % (Auto) % Lymph % (Auto) % [place] % (Auto) % Eos % (Auto) % Baso % (Auto) % Immature Gran # (Auto) (0.00-0.02) K/uL Neut # (Auto) (1.4-6.5) K/uL Lymph # (Auto) (1.2-3.4) K/uL [place] # (Auto) (0.11-0.59) K/uL Eos # (Auto) (0-0.5) K/uL Baso # (Auto) (0-0.2) K/uL Toxic Vacuolation Echinocytes VBG pH (7.36-7.41) VBG pCO2 (38-50) mmHg VBG pO2 mmHg VBG HCO3 mmol/L VBG O2 Saturation % VBG Base Excess mEq/L Barometric Pressure mm/Hg Sodium (136-145) mmol/L Potassium (3.5-5.1) mmol/L Chloride (98-107) mmol/L Carbon Dioxide (21-32) mmol/L Anion Gap (3-11) BUN (7-18) mg/dl Creatinine (0.6-1.2) mg/dl Est Cr Clr Drug Dosing ml/min Est GFR ( Amer) Est GFR (Non-Af Amer) BUN/Creatinine Ratio (10-20) Glucose (70-99) mg/dl POC Glucose (70-99) Lactate 3.4 H* (0.4-2.0) mmol/L Calcium (8.5-10.1) mg/dl Phosphorus (2.5-4.9) mg/dl Magnesium (1.8-2.4) mg/dl Total Bilirubin (0.2-1) mg/dl AST (15-37) U/L ALT (12-78) U/L Alkaline Phosphatase (45-117) U/L Troponin I (0-0.045) ng/ml Total Protein (6.4-8.2) gm/dl Albumin (3.4-5.0) gm/dl Globulin (2.5-4.0) gm/dl Albumin/Globulin Ratio (0.9-2) Lipase (73-393) U/L Beta-Hydroxybutyric Acd (0.2-2.81) mg/dl Urine Color Yellow Urine Appearance Clear (Clear) Urine pH 5.0 (4.5-7.5) Ur Specific [place] 1.023 (1.000-1.030) Urine Protein Negative (Negative) POC Urine Protein Trace H (Negative) Urine Glucose (UA) 3+ H (Negative) POC Ur Glucose (UA) 1000 H (Normal) Urine Ketones 4+ H (Negative) POC Urine Ketones 3+ (Large) H (Negative) Urine Blood Negative (Negative) POC Urine Blood Trace H (Negative) Urine Nitrite Negative (Negative) POC Urine Nitrite Negative (Negative) Urine Bilirubin Negative (Negative) POC Urine Bilirubin Negative (Negative) Urine Urobilinogen Negative (Negative) POC Urine Urobilinogen Normal (Normal) Ur Leukocyte Esterase Negative (Negative) POC U Leukocyte Esteras Negative (Negative) 06/27/18 06/27/18 06/27/18 Range/Units 00:31 00:31 01:03 WBC (4.8-10.8) K/uL RBC (4.2-5.4) M/uL Hgb (12.0-16.0) g/dL Hct (37-47) % MCV (80-100) fL MCH (25-34) pg MCHC (32-36) g/dL RDW Std Deviation (36.4-46.3) fL RDW Coeff of Leopoldo (11.5-14.5) % Plt Count (130-400) K/uL MPV (7.4-10.4) fL Immature Gran % (Auto) % Neut % (Auto) % Lymph % (Auto) % [place] % (Auto) % Eos % (Auto) % Baso % (Auto) % Immature Gran # (Auto) (0.00-0.02) K/uL Neut # (Auto) (1.4-6.5) K/uL Lymph # (Auto) (1.2-3.4) K/uL [place] # (Auto) (0.11-0.59) K/uL Eos # (Auto) (0-0.5) K/uL Baso # (Auto) (0-0.2) K/uL Toxic Vacuolation Echinocytes VBG pH 7.17 L (7.36-7.41) VBG pCO2 21 L (38-50) mmHg VBG pO2 51 mmHg VBG HCO3 7 mmol/L VBG O2 Saturation 77.7 % VBG Base Excess -19.2 mEq/L Barometric Pressure 734.6 mm/Hg Sodium (136-145) mmol/L Potassium 5.1 (3.5-5.1) mmol/L Chloride (98-107) mmol/L Carbon Dioxide (21-32) mmol/L Anion Gap (3-11) BUN (7-18) mg/dl Creatinine (0.6-1.2) mg/dl Est Cr Clr Drug Dosing ml/min Est GFR ( Amer) Est GFR (Non-Af Amer) BUN/Creatinine Ratio (10-20) Glucose (70-99) mg/dl POC Glucose > 600 H* (70-99) Lactate (0.4-2.0) mmol/L Calcium (8.5-10.1) mg/dl Phosphorus (2.5-4.9) mg/dl Magnesium 2.5 H (1.8-2.4) mg/dl Total Bilirubin (0.2-1) mg/dl AST 16 (15-37) U/L ALT (12-78) U/L Alkaline Phosphatase (45-117) U/L Troponin I (0-0.045) ng/ml Total Protein (6.4-8.2) gm/dl Albumin (3.4-5.0) gm/dl Globulin (2.5-4.0) gm/dl Albumin/Globulin Ratio (0.9-2) Lipase (73-393) U/L Beta-Hydroxybutyric Acd (0.2-2.81) mg/dl Urine Color Urine Appearance (Clear) Urine pH (4.5-7.5) Ur Specific [place] (1.000-1.030) Urine Protein (Negative) POC Urine Protein (Negative) Urine Glucose (UA) (Negative) POC Ur Glucose (UA) (Normal) Urine Ketones (Negative) POC Urine Ketones (Negative) Urine Blood (Negative) POC Urine Blood (Negative) Urine Nitrite (Negative) POC Urine Nitrite (Negative) Urine Bilirubin (Negative) POC Urine Bilirubin (Negative) Urine Urobilinogen (Negative) POC Urine Urobilinogen (Normal) Ur Leukocyte Esterase (Negative) POC U Leukocyte Esteras (Negative) Imaging Data Attestation: I personally reviewed and interpreted this imaging study as follows: My Impression: CHEST X-RAY: No pneumothorax. No evidence of pneumonia. Normal cardiac silhouette. No acute bony abnormality. Right central line into the SVC. Radiologist's Impression: Radiology results as stated below per my review and the radiologist's interpretation: CT ABDOMEN & PELVIS With Contrast: Motion artifact throughout the exam. At least moderate stool throughout the col on may represent a component of constipation. No bowel obstruction. No free intraperitoneal fluid or definite pneumoperitoneum. Pneumobilia is similar to examination 05/06/2016. Postsurgical changes noted in the anterior to the aorta in the central superior abdomen near the cellac axis are stable in appearance and are presumed related to potential distal pancreatectomy. Detailed evaluation in the pancreatic bed is limited by motion. The liver, small size splenic tissue and kidneys demonstrate no significant abnormality or interval change from previous exam. Distention of the bladder. No bladder wall abnormalities. No obvious acute osseous abnormality identified. No overlying soft tissue abnormality suggested. 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 Given IV fluids here along with antiemetics. Has been trying some mild antiemetics at home. Blood sugar is significantly elevated here. EKG and troponin are completed but lower suspicion this acute ACS. CT abdomen pelvis is completed exclude other acute intra-abdominal pathology. This appears negative. Do not believe septic at this point. Laboratory studies show significant leukocytosis likely reactive with acidosis and anion gap consistent with diabetic ketoacidosis. Likely pseudohyponatremia. No evidence of troponin elevation or acute pancreatitis. Given fluid resuscitation. Poor vascular access and triple-lumen placed RI for fluid resuscitation. Hospitalist contacted for admission and insulin was ordered/started. ICU admission. Impression & Plan DKA (diabetic ketoacidoses), Gastroenteritis Critical Care Time I have personally spent greater than 75 minutes of critical care time in the direct management of this patient. This includes bedside care, interpretation of diagnostic studies, and testing, discussion with consultants, patient, and family members, and other required patient management activities. This 75 minutes is in excess of all separately billable procedures. Critical Care Time: Yes Total Critical Care Time: 75 Discharge Plan Visit Data Chief Complaint: Hyperglycemia Stated Complaint: DKA, VOMITING ED Provider: Tyrone Bateman Discharge Problem: DKA (diabetic ketoacidoses), Gastroenteritis Patient Disposition: Being Evaluated by Hospitalist Forms Stand Alone Forms: My [facility] Prescriptions Prescriptions: No Action bupropion HCl 150 mg tablet sustained-release 12 hr 150 mg PO BID RF: 0 atorvastatin 20 mg tablet 20 mg PO HS RF: 0 liothyronine 25 mcg tablet 12.5 mcg PO DAILY RF: 0 medroxyprogesterone 2.5 mg tablet 2.5 mg PO DAILY RF: 0 famotidine 40 mg tablet 40 mg PO BID RF: 0 valacyclovir 500 mg tablet 500 mg PO BID RF: 0 alprazolam 0.25 mg tablet 0.25 mg PO TID RF: 0 hyoscyamine sulfate 0.375 mg tablet extended release 12 hr 0.375 mg PO BID RF: 0 oxycodone-acetaminophen 10-325 mg tablet 1 tab PO QID PRN (Reason: Pain) RF: 0 Novolog U-100 Insulin aspart 100 unit/mL solution 1 dose subcut UD RF: 0 levothyroxine 50 mcg tablet 50 mcg PO DAILY RF: 0 folic acid 1 mg tablet 1 mg PO DAILY RF: 0 montelukast 10 mg tablet 10 mg PO DAILY RF: 0 fentanyl 25 mcg/hr patch 72 hour 25 mcg topical Q3D RF: 0 Premarin 0.3 mg tablet 0.3 mg PO DAILY RF: 0 fentanyl 12 mcg/hr patch 72 hour 12 mcg topical Q3D RF: 0 omeprazole-sodium bicarbonate 40-1.1 mg-gram capsule 1 tab PO BID RF: 0 multivitamin Tablet 1 tab PO DAILY RF: 0 Lantus U-100 Insulin 100 unit/mL Solution 12 unit SUBCUT HS PRN (Reason: Unknown) RF: 0 sucralfate [Carafate] 100 mg/mL Suspension 10 ml PO QID PRN (Reason: Gi Upset) RF: 0 ondansetron 8 mg Tablet,Disintegrating 8 mg PO Q6H PRN (Reason: Nausea) RF: 0 nystatin-triamcinolone 100,000-0.1 unit/gram-% Ointment 1 applic TOPICAL TID PRN (Reason: Skin Irritation) RF: 0 calcium carbonate [Calcium 600] 600 mg calcium (1,500 mg) Tablet 600 mg PO DAILY RF: 0 glucagon (human recombinant) 1 mg Recon Soln 1 dose subcut UD PRN (Reason: Hypoglycemia) RF: 0 lidocaine HCl [Lidocaine Viscous] 2 % Solution 2 tsp PO UD RF: 0 estradiol 0.01 % (0.1 mg/gram) Cream 1 g VAGINAL 2XWK PRN (Reason: Unknown) RF: 0 zoledronic eojt-srhmlynk-vtzhd 5 mg/100 mL Piggyback 5 mg IV UD RF: 0 cholecalciferol (vitamin D3) [Vitamin D3] 2,000 unit Capsule 2,000 unit PO DAILY RF: 0 Creon 12,000-38,000 -60,000 unit Capsule,Delayed Release(Dr/Ec) 3 cap PO UD RF: 0 Referrals Referrals: Juan Carlos Sebastian MD [Primary Care Provider] - Discharge Problem: DKA (diabetic ketoacidoses) Qualifiers: Diabetes mellitus type: type 1 Diabetes mellitus complication detail: without coma Qualified Code(s): E10.10 - Type 1 diabetes mellitus with ketoacidosis w ithout coma The scribe's documentation has been prepared under my direction and personally reviewed by me in its entirety. I confirm that the note above accurately reflects all work, treatment, procedures, and medical decision making performed by me.
[2018-06-27 02:08] LABS: BUN Creatinine Ratio 24.1 (10-20); Calcium 9.4 mg/dl (8.5-10.1); Creatinine Clr Calc Pharmacy 35.6 ml/min; Est GFR (African American) 58.9; Est GFR (Non-African American) 50.8; Phosphorus 4.9 mg/dl (2.5-4.9)
--- NOTE | 2018-06-27 02:57 | History & Physical Report ---
Date of Service June 26, 2018 Assessment & Plan (1) DKA (diabetic ketoacidoses): Patient with history of procedure for necrotic pancreas, insulin-dependent diabetes with insulin pump in place. She follows regularly with endocrinology and last saw the breastfeeding educator on 09 June 2018. During that visit her basal insulin was increased by 5%, sensitivity changed from 65 to 70 and carb ratio changed from 1:9.5 to 1:12. A1C=9.9 on 09/25/17. Patient presenting now in DKA, she is AA&O, alert but agitated -Admit to MICU -NPO -Insulin gtt per protocol -Patient HD stable. Received 2L NSS in ER. Will continue NSS at 125mL/hr x 3 liters -BMP, Mg, PO4 and VBG q 4 hours. If failure to improve or worsening serum HCO3 or pH will consider short term use of bicarbonate -Zofran PRN nausea Present on Admission?: Yes (2) PUD (peptic ulcer disease): Patient with history of PUD. Is on Carafate and BID Pepcid -Keep NPO -Pepcid 20mg IV BID Present on Admission?: Yes (3) Hypothyroid: Patient on Synthroid -Change to IV synthroid while NPO Present on Admission?: Yes (4) Elevated lactic acid level: Lactate = 3.4 -Patient given NSS x 2 liters and is receiving maintenance fluids as well -Repeat with AM labs (5) Chronic pain: Patient with history of chronic pain, chronic narcotic use. Post- operative abdominal pain and chronic back pain. She follows with Orthopedics for her back pain. She has been recommended to pain management but does not wish to see them. She also fell on 04/23/18 and sustained a left humeral neck fracture therefore has some pain from that. She has osteoporosis and is on Reclast, Vitamin D and Calcium. To have Reclast in October -Continue Fentanyl patches -Morphine PRN F/E/N - NSS at 125mL/hr, monitor labs q 4 hours, NPO for now Ppx - SCDs to bilateral Les Code - Full Dispo - MICU Updated patient's daughter, Brennan Jackson at [phone] Present on Admission?: Yes History of Present Illness Chief Complaint: DKA Primary Care Provider: Juan Carlos Sebastian MD Majority of history obtained through chart review, discussion with ER staff and discussion with patient's daughter. Mrs. 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 Patient with insulin pump in place, states it has been working fine. She reports that her blood sugars have been high over the last few days, was >600 today prior to arrival. She also reports headache, nausea, vomiting, abdominal cramping and PO intolerance. No additional complaints at this time. Upon arrival to the Er she was afebrile, mildly tachycardic at 107bpm, BP and respiratory rate stable. Laboratory workup significant for neutrophil predominant leukocytosis with WBC= 25.23. pH=7.17, HCO3=8, OX=173, Lactate=3.4, UA 3+ glucose and 4+ ketones. CXR and CT abdomen unremarkable. Patient with poor IV access therefore a triple-lumen CVC was placed in the right IJ by ER attending . Started on insulin gtt and IVF. ER Course: Zofran 4mg IV, NSS x 2 liters, insulin gtt Allergies Allergy/AdvReac Type Severity Reaction Status Date / Time No Known Allergies Allergy Verified 06/26/18 22:49 Home Medications Home Medications Medication Instructions Recorded Confirmed Type alprazolam 0.25 mg PO TID 06/26/18 06/26/18 History atorvastatin 20 mg PO HS 06/26/18 06/26/18 History bupropion HCl 150 mg PO BID 06/26/18 06/26/18 History calcium carbonate [Calcium 600] 600 mg PO DAILY 06/26/18 06/26/18 History cholecalciferol (vitamin D3) 2,000 unit PO DAILY 06/26/18 06/26/18 History [Vitamin D3] conjugated estrogens [Premarin] 0.3 mg PO DAILY 06/26/18 06/26/18 History estradiol 1 g VAGINAL 2XWK PRN 06/26/18 06/26/18 History famotidine 40 mg PO BID 06/26/18 06/26/18 History fentanyl 12 mcg TOPICAL Q3D 06/26/18 06/26/18 History fentanyl 25 mcg TOPICAL Q3D 06/26/18 06/26/18 History folic acid 1 mg PO DAILY 06/26/18 06/26/18 History glucagon (human recombinant) 1 dose SUBCUT UD PRN 06/26/18 06/26/18 History hyoscyamine sulfate 0.375 mg PO BID 06/26/18 06/26/18 History insulin aspart U-100 [Novolog 1 dose SUBCUT UD 06/26/18 06/26/18 History U-100 Insulin aspart] insulin glargine [Lantus U-100 12 unit SUBCUT HS PRN 06/26/18 06/26/18 History Insulin] levothyroxine 50 mcg PO DAILY 06/26/18 06/26/18 History lidocaine HCl [Lidocaine Viscous] 2 tsp PO UD 06/26/18 06/26/18 History liothyronine 12.5 mcg PO DAILY 06/26/18 06/26/18 History xxhbzc-[id number]-vvgmjnd [Creon] 3 cap PO UD 06/26/18 06/26/18 History medroxyprogesterone 2.5 mg PO DAILY 06/26/18 06/26/18 History montelukast 10 mg PO DAILY 06/26/18 06/26/18 History multivitamin 1 tab PO DAILY 06/26/18 06/26/18 History nystatin-triamcinolone 1 applic TOPICAL TID PRN 06/26/18 06/26/18 History omeprazole-sodium bicarbonate 1 tab PO BID 06/26/18 06/26/18 History ondansetron 8 mg PO Q6H PRN 06/26/18 06/26/18 History oxycodone-acetaminophen 1 tab PO QID PRN 06/26/18 06/26/18 History sucralfate [Carafate] 10 ml PO QID PRN 06/26/18 06/26/18 History valacyclovir 500 mg PO BID 06/26/18 06/26/18 History zoledronic kutc-lctquvqj-yvzbj 5 mg IV UD 06/26/18 06/26/18 History Past Med/Surg History Medical History DKA (diabetic ketoacidoses) (Acute) Small bowel obstruction (Resolved 12/21/12) Anxiety Diabetes Peptic ulcer disease Surgical History History of resection of pancreas S/P splenectomy Family History Other Adopted Social History Preferred Language: Czech Feels Safe at Home: Yes Smoking Status: Never smoker Review of Systems All systems reviewed & are unremarkable except as noted in HPI & below Physical Exam Vital Signs (Past 24 Hours): Last Vital Signs Temp 36.7 C 06/26/18 22:12 Pulse 111 H 06/27/18 02:00 Resp 21 06/27/18 02:00 BP 140/80 06/27/18 02:00 Pulse Ox 100 06/27/18 02:00 Physical Exam: General: patient agitated after central line placement, NAD, ill in appearance Skin: warm, dry, intact, no rashes or lesions HEENT: NC/AT, PERRL, EOMI, anicteric sclera, conjunctiva without injection, e xternal ear normal to inspection and nontender, nares patent, dry mucus membranes, dentition intact, no oropharyngeal lesions, neck supple, trachea midline, no LAD, no thyromegaly, no JVD Heart: +S1/S2, regular, tachycardic, no m/r/g Lungs: equal air entry bilaterally, no rales/rhonchi/wheezes Abd: +BS, soft, NT/ND, no masses/organomegaly/ascites, insulin pump in LLQ Ext: warm, 2+ pulses in UE/LE bilaterally, no clubbing/cyanosis or edema Neuro: nonfocal, patient AA&O x 4, speech intact, no facial droop, moving all extremities on command with equal strength 5/5 Results & Data Laboratory Results Lab Results 06/26/18 06/26/18 06/26/18 Range/Units 22:22 22:26 22:26 WBC 25.23 H (4.8-10.8) K/uL RBC 3.78 L (4.2-5.4) M/uL Hgb 13.7 (12.0-16.0) g/dL Hct 40.4 (37-47) % MCV 106.9 H (80-100) fL MCH 36.2 H (25-34) pg MCHC 33.9 (32-36) g/dL RDW Std Deviation 49.8 H (36.4-46.3) fL RDW Coeff of Leopoldo 12.7 (11.5-14.5) % Plt Count 361 (130-400) K/uL MPV 10.5 H (7.4-10.4) fL Immature Gran % (Auto) 0.5 % Neut % (Auto) 82.7 % Lymph % (Auto) 6.9 % [place] % (Auto) 9.8 % Eos % (Auto) 0.0 % Baso % (Auto) 0.1 % Immature Gran # (Auto) 0.13 H (0.00-0.02) K/uL Neut # (Auto) 20.86 H (1.4-6.5) K/uL Lymph # (Auto) 1.75 (1.2-3.4) K/uL [place] # (Auto) 2.47 H (0.11-0.59) K/uL Eos # (Auto) 0.00 (0-0.5) K/uL Baso # (Auto) 0.02 (0-0.2) K/uL Toxic Vacuolation 2+ Echinocytes 1+ VBG pH (7.36-7.41) VBG pCO2 (38-50) mmHg VBG pO2 mmHg VBG HCO3 mmol/L VBG O2 Saturation % VBG Base Excess mEq/L Barometric Pressure mm/Hg Sodium 128 L (136-145) mmol/L Potassium (3.5-5.1) mmol/L Chloride 95 L (98-107) mmol/L Carbon Dioxide 8 L* (21-32) mmol/L Anion Gap 24.0 H (3-11) BUN 26 H (7-18) mg/dl Creatinine 1.32 H (0.6-1.2) mg/dl Est Cr Clr Drug Dosing 31.8 ml/min Est GFR ( Amer) 51.4 Est GFR (Non-Af Amer) 44.4 BUN/Creatinine Ratio 20.0 (10-20) Glucose 602 H* (70-99) mg/dl POC Glucose 561 H* (70-99) Lactate (0.4-2.0) mmol/L Calcium 10.0 (8.5-10.1) mg/dl Phosphorus 5.3 H (2.5-4.9) mg/dl Magnesium (1.8-2.4) mg/dl Total Bilirubin 0.8 (0.2-1) mg/dl AST (15-37) U/L ALT 20 (12-78) U/L Alkaline Phosphatase 104 (45-117) U/L Troponin I < 0.015 (0-0.045) ng/ml Total Protein 8.5 H (6.4-8.2) gm/dl Albumin 4.7 (3.4-5.0) gm/dl Globulin 3.8 (2.5-4.0) gm/dl Albumin/Globulin Ratio 1.2 (0.9-2) Lipase 22 L (73-393) U/L Beta-Hydroxybutyric Acd 80.36 H (0.2-2.81) mg/dl Urine Color Urine Appearance (Clear) Urine pH (4.5-7.5) Ur Specific Glenvil (1.000-1.030) Urine Protein (Negative) POC Urine Protein (Negative) Urine Glucose (UA) (Negative) POC Ur Glucose (UA) (Normal) Urine Ketones (Negative) POC Urine Ketones (Negative) Urine Blood (Negative) POC Urine Blood (Negative) Urine Nitrite (Negative) POC Urine Nitrite (Negative) Urine Bilirubin (Negative) POC Urine Bilirubin (Negative) Urine Urobilinogen (Negative) POC Urine Urobilinogen (Normal) Ur Leukocyte Esterase (Negative) POC U Leukocyte Esteras (Negative) 06/26/18 06/26/18 06/27/18 Range/Units 23:26 23:26 00:31 WBC (4.8-10.8) K/uL RBC (4.2-5.4) M/uL Hgb (12.0-16.0) g/dL Hct (37-47) % MCV (80-100) fL MCH (25-34) pg MCHC (32-36) g/dL RDW Std Deviation (36.4-46.3) fL RDW Coeff of Leopoldo (11.5-14.5) % Plt Count (130-400) K/uL MPV (7.4-10.4) fL Immature Gran % (Auto) % Neut % (Auto) % Lymph % (Auto) % [place] % (Auto) % Eos % (Auto) % Baso % (Auto) % Immature Gran # (Auto) (0.00-0.02) K/uL Neut # (Auto) (1.4-6.5) K/uL Lymph # (Auto) (1.2-3.4) K/uL [place] # (Auto) (0.11-0.59) K/uL Eos # (Auto) (0-0.5) K/uL Baso # (Auto) (0-0.2) K/uL Toxic Vacuolation Echinocytes VBG pH (7.36-7.41) VBG pCO2 (38-50) mmHg VBG pO2 mmHg VBG HCO3 mmol/L VBG O2 Saturation % VBG Base Excess mEq/L Barometric Pressure mm/Hg Sodium (136-145) mmol/L Potassium (3.5-5.1) mmol/L Chloride (98-107) mmol/L Carbon Dioxide (21-32) mmol/L Anion Gap (3-11) BUN (7-18) mg/dl Creatinine (0.6-1.2) mg/dl Est Cr Clr Drug Dosing ml/min Est GFR ( Amer) Est GFR (Non-Af Amer) BUN/Creatinine Ratio (10-20) Glucose (70-99) mg/dl POC Glucose (70-99) Lactate 3.4 H* (0.4-2.0) mmol/L Calcium (8.5-10.1) mg/dl Phosphorus (2.5-4.9) mg/dl Magnesium (1.8-2.4) mg/dl Total Bilirubin (0.2-1) mg/dl AST (15-37) U/L ALT (12-78) U/L Alkaline Phosphatase (45-117) U/L Troponin I (0-0.045) ng/ml Total Protein (6.4-8.2) gm/dl Albumin (3.4-5.0) gm/dl Globulin (2.5-4.0) gm/dl Albumin/Globulin Ratio (0.9-2) Lipase (73-393) U/L Beta-Hydroxybutyric Acd (0.2-2.81) mg/dl Urine Color Yellow Urine Appearance Clear (Clear) Urine pH 5.0 (4.5-7.5) Ur Specific Glenvil 1.023 (1.000-1.030) Urine Protein Negative (Negative) POC Urine Protein Trace H (Negative) Urine Glucose (UA) 3+ H (Negative) POC Ur Glucose (UA) 1000 H (Normal) Urine Ketones 4+ H (Negative) POC Urine Ketones 3+ (Large) H (Negative) Urine Blood Negative (Negative) POC Urine Blood Trace H (Negative) Urine Nitrite Negative (Negative) POC Urine Nitrite Negative (Negative) Urine Bilirubin Negative (Negative) POC Urine Bilirubin Negative (Negative) Urine Urobilinogen Negative (Negative) POC Urine Urobilinogen Normal (Normal) Ur Leukocyte Esterase Negative (Negative) POC U Leukocyte Esteras Negative (Negative) 06/27/18 06/27/18 06/27/18 Range/Units 00:31 00:31 01:03 WBC (4.8-10.8) K/uL RBC (4.2-5.4) M/uL Hgb (12.0-16.0) g/dL Hct (37-47) % MCV (80-100) fL MCH (25-34) pg MCHC (32-36) g/dL RDW Std Deviation (36.4-46.3) fL RDW Coeff of Leopoldo (11.5-14.5) % Plt Count (130-400) K/uL MPV (7.4-10.4) fL Immature Gran % (Auto) % Neut % (Auto) % Lymph % (Auto) % [place] % (Auto) % Eos % (Auto) % Baso % (Auto) % Immature Gran # (Auto) (0.00-0.02) K/uL Neut # (Auto) (1.4-6.5) K/uL Lymph # (Auto) (1.2-3.4) K/uL [place] # (Auto) (0.11-0.59) K/uL Eos # (Auto) (0-0.5) K/uL Baso # (Auto) (0-0.2) K/uL Toxic Vacuolation Echinocytes VBG pH 7.17 L (7.36-7.41) VBG pCO2 21 L (38-50) mmHg VBG pO2 51 mmHg VBG HCO3 7 mmol/L VBG O2 Saturation 77.7 % VBG Base Excess -19.2 mEq/L Barometric Pressure 734.6 mm/Hg Sodium 129 L (136-145) mmol/L Potassium 5.1 (3.5-5.1) mmol/L Chloride 98 (98-107) mmol/L Carbon Dioxide 6 L* (21-32) mmol/L Anion Gap 25.0 H (3-11) BUN 28 H (7-18) mg/dl Creatinine 1.18 (0.6-1.2) mg/dl Est Cr Clr Drug Dosing 35.6 ml/min Est GFR ( Amer) 58.9 Est GFR (Non-Af Amer) 50.8 BUN/Creatinine Ratio 24.1 H (10-20) Glucose 668 H* (70-99) mg/dl POC Glucose > 600 H* (70-99) Lactate (0.4-2.0) mmol/L Calcium 9.4 (8.5-10.1) mg/dl Phosphorus 4.9 (2.5-4.9) mg/dl Magnesium 2.5 H (1.8-2.4) mg/dl Total Bilirubin (0.2-1) mg/dl AST 16 (15-37) U/L ALT (12-78) U/L Alkaline Phosphatase (45-117) U/L Troponin I (0-0.045) ng/ml Total Protein (6.4-8.2) gm/dl Albumin (3.4-5.0) gm/dl Globulin (2.5-4.0) gm/dl Albumin/Globulin Ratio (0.9-2) Lipase (73-393) U/L Beta-Hydroxybutyric Acd (0.2-2.81) mg/dl Urine Color Urine Appearance (Clear) Urine pH (4.5-7.5) Ur Specific Glenvil (1.000-1.030) Urine Protein (Negative) POC Urine Protein (Negative) Urine Glucose (UA) (Negative) POC Ur Glucose (UA) (Normal) Urine Ketones (Negative) POC Urine Ketones (Negative) Urine Blood (Negative) POC Urine Blood (Negative) Urine Nitrite (Negative) POC Urine Nitrite (Negative) Urine Bilirubin (Negative) POC Urine Bilirubin (Negative) Urine Urobilinogen (Negative) POC Urine Urobilinogen (Normal) Ur Leukocyte Esterase (Negative) POC U Leukocyte Esteras (Negative) Diagnostic Findings CT abdomen pelvis with contrast: Motion artifact throughout the exam. At least moderate stool throughout the colon may represent a component of constipation. No bowel resection. No free intraperitoneal fluid or definite pneumoperitoneum. Pneumobilia is similar to examination 05/06/2016. Postsurgical changes noted in the anterior to the aorta in the central superior abdomen near the celiac axis are stable in appearance and are presumed related to potential distal pancreatectomy. Detailed evaluation in the pancreatic bed is limited by motion. The liver, small sized splenic tissue and kidneys demonstrate no significant abnormality or interval change from previous exam. Distention of the bladder. No bladder wall abnormalities. No obvious acute osseous abnormalities identified. No overlying soft tissue abnormality suggested. Read by radiologist Merrick Madden MD ECG Additional Comments: The study demonstrates sinus tachycardia at 101 bpm, normal axis, CT = 176, QRS = 78, QTC = 443, no acute ischemic changes Code Status & VTE Plan Code Status Full code Critical Care Time Critical Care Time: Yes Total Critical Care Time: 35 (1) DKA (diabetic ketoacidoses) Diabetes mellitus complication detail: without coma Diabetes mellitus type: type 1 Qualified Code(s): E10.10 - Type 1 diabetes mellitus with ketoacidosis without coma (2) Hypothyroid Hypothyroidism type: unspecified Qualified Code(s): E03.9 - Hypothyroidism, unspecified (3) Chronic pain Chronic pain type: chronic pain syndrome Qualified Code(s): G89.4 - Chronic pain syndrome
[2018-06-27 03:00] LABS: Beta-Hydroxybutyrate 84.54 mg/dl (0.2-2.81)
[2018-06-27] MEDS ORDERED: ICU PROTOCOL FOR HYPERGLYCEMIA PRN (03:32)
[2018-06-27] MEDS ORDERED: DOCUSATE SODIUM 100 MG CAP PO PRN (03:32)
[2018-06-27] MEDS ORDERED: INSULIN REGULAR 250 UNITS in SODIUM CHLORIDE 0.9% 247.5 ML IV SCH (03:32)
[2018-06-27] MEDS ORDERED: POLYETHYLENE (MIRALAX) 17 GM PACK PO PRN (03:32)
[2018-06-27] MEDS: SODIUM CHLORIDE 0.9% 1000ML 1,000 ML IV SCH ×2 (03:56→07:00)
[2018-06-27] MEDS ORDERED: PHARMACY GLYCEMIC MGMT CONSULT PRN (03:57)
[2018-06-27 04:24] LABS: BUN Creatinine Ratio 23.9 (10-20); Creatinine Clr Calc Pharmacy 37.6 ml/min; Est GFR (African American) 63.4; Est GFR (Non-African American) 54.7; Magnesium 2.1 mg/dl (1.8-2.4); Phosphorus 2.3 mg/dl (2.5-4.9)
[2018-06-27 04:57] LABS: Beta-Hydroxybutyrate 65.96 mg/dl (0.2-2.81)
[2018-06-27 04:59] LABS: Potassium 3.9 mmol/L (3.5-5.1)
[2018-06-27] MEDS ORDERED: NSS + 20MEQ KCL 20 MEQ/1,000 ML BAG IV SCH (06:30)
--- NOTE | 2018-06-27 06:41 | XRay Report ---
XR chest 1V portable HISTORY: 57 years-old Female line placement status post placement of a right internal jugular centra l venous catheter COMPARISON: Chest and rib radiographs 05/16/2017 TECHNIQUE: Portable AP view of the chest FINDINGS: Cardiomediastinal and hilar silhouettes are within normal limits. There is a right internal jugular c entral venous catheter noted with distal tip terminating in the expected location of the mid SVC. The re is no postprocedural pneumothorax. No pleural effusion, focal airspace consolidation or overt pulm onary edema. The lungs are hyperinflated. Subacute to chronic appearing mildly displaced left proxima l humeral fracture. Degenerative changes of the shoulders and spine. IMPRESSION: Status post placement of a right internal jugular central venous catheter with distal tip terminating in the expected location of the mid SVC. No postprocedural pneumothorax. The above report was generated using voice recognition software. It may contain grammatical, syntax o r spelling errors. Electronically signed by: Korey Lopez M.D. 06/27/2018 6:40 AM
[2018-06-27] MEDS: PENDING NSS+20mEq KCL IVF SCH (07:01)
[2018-06-27] MEDS: PENDING D5 1/2NS+20mEq KCL IVF SCH ×2 (07:11→10:05)
--- NOTE | 2018-06-27 07:14 | XRay Report ---
XR KUB/Abdomen 1 view CLINICAL HISTORY: Feeding Tube placement COMPARISON STUDY: No previous studies for comparison. FINDINGS: There is no conventional radiographic evidence of a high-grade bowel obstruction. There are multiple surgical clips within the upper central abdomen. There is scattered stool within the colon. The reported feeding tube is not visualized. IMPRESSION: 1. The reported feeding tube is not visualized. Clinical correlation in this regard is advocated. Electronically signed by: Grant Cheek M.D. 06/27/2018 7:13 AM
--- NOTE | 2018-06-27 07:22 | CT Scan Report ---
ABDOMEN AND PELVIS CT WITH IV CONTRAST CT DOSE: 252.55 mGy.cm HISTORY: Acute nausea and vomiting with acute generalized abdominal pain n/v/ abdominal pain TECHNIQUE: Multiaxial CT images of the abdomen and pelvis were performed following the use of intrave nous contrast. A dose lowering technique was utilized adhering to the principles of ALARA. COMPARISON STUDY: CT abdomen and pelvis 05/06/2016 FINDINGS: Imaged lung bases appear clear. The study is limited secondary to motion and positioning. The imaged inferior cardiac chambers appear unremarkable. Postoperative changes from prior Whipple procedure. Mo derate pneumobilia is unchanged also likely on a postsurgical basis. Decreased attenuation of the michelle er suggestive of probable hepatic steatosis. Liver otherwise appears unremarkable. Patency of the vis ualized hepatic and portal veins. Prior splenectomy. Splenic tissue of the abdominal left upper quadr ant measures up to 2.0 cm. Adrenal glands are unremarkable. Kidneys and ureters are unremarkable. Mil d urinary bladder distention. Age related changes of the uterus and ovaries. Aorta and IVC are unrema rkable. No adenopathy. There is no small bowel obstruction. Moderate formed stool throughout the colon suggests constipation . Multiple radiodense foci within the colon are suggestive of ingested pill fragments. Mild wall thic kening is noted about the ascending colon lung with partial distention with additional mild wall thic kening noted about the mid descending colon. Appendix is noted on image 223 series 3 and appears to b e noninflamed. There is no ascites or mesenteric inflammation identified. The soft tissues are unrema rkable. Demineralized appearance of the bones. Multilevel facet arthrosis with spondylitic spurring. Hardware noted about the right femur. Mild lumbar levoscoliosis. Severe discogenic degenerative martinez es about the lower lumbar spine. IMPRESSION: 1. No bowel obstruction. 2. Moderate constipation. Areas of mild wall thickening about the ascending and descending colon are likely secondary to partial distention with a nonspecific colitis considered less likely. 3. Postoperative changes from prior Whipple procedure and splenectomy. 4. Additional findings as above. Electronically signed by: Korey Lopez M.D. 06/27/2018 7:20 AM
[2018-06-27] MEDS: ONDANSETRON INJ 2 MG/ML 2 ML VIAL IV SCH ×2 (07:37→08:57)
[2018-06-27] MEDS: FAMOTIDINE 20 MG in SYRINGE 3 ML IV SCH ×2 (07:37→17:02)
[2018-06-27] MEDS: CHECK FENTANYL PATCH PLACEMENT SCH ×3 (07:38→23:57)
[2018-06-27] MEDS: INSULIN ASPART 100 UNITS/ML 3 ML PEN SC SCH ×4 (07:40→22:10)
[2018-06-27 08:16] LABS: BUN Creatinine Ratio 25.2 (10-20); Calcium 8.4 mg/dl (8.5-10.1); Creatinine Clr Calc Pharmacy 40.1 ml/min; Est GFR (African American) 68.6; Est GFR (Non-African American) 59.2; Magnesium 2.2 mg/dl (1.8-2.4); Phosphorus 1.9 mg/dl (2.5-4.9)
[2018-06-27] MEDS ORDERED: POTASSIUM PHOSPHATE 21 MMOL in SODIUM CHLORIDE 0.9% 500 ML IV ONE (08:30)
[2018-06-27] MEDS: LEVOTHYROXINE SODIUM 50 MCG in SYRINGE 0 ML IV SCH (08:54)
[2018-06-27] MEDS ORDERED: fentaNYL 12 MCG/HR TDSY TD SCH (09:00)
[2018-06-27] MEDS ORDERED: fentaNYL 25 MCG/HR TDSY TD SCH (09:00)
[2018-06-27] MEDS ORDERED: INSULIN ASPART 100 UNITS/ML 3 ML PEN SC SCH (09:00)
--- NOTE | 2018-06-27 09:20 | Critical Care Consultation ---
Date of Consultation June 27, 2018 Assessment & Plan (1) Admitted to intensive care unit: Reason Critically Ill: 57-year-old female here for DKA. Past medical history significant for Insulin dependant DM on pump, s/p distal pancreatomy, splenectomy, hx sbo, pud, hypothyroid Neuro: -CAM ICU: POSITIVE -Likely 2/2 to metabolic encephalopathy -per family this occurs frequently when she has DKA episodes -noncontrast head ct->no intracranial abnormality -Chronic Pain: Continue home regimen Cardiac: -Tachycardia likely 2/2 to DKA, improving. (see endo) Respiratory: -Satting well on room air -PRN O2 as required to maintain sats greater than 92% GI: -NPO until gap closes -> DM diet -s/p distal pancreatomy -ndication is not clear leonor f/u OSH medical records RENAL/LYTES: -DKA BSG goal 140-180 -add dextrose to IVF -DKA protocol -Last gap was 13 -Replace lytes as needed. ENDO: -ICU Hyperglycemia protocol -Insulin drip managed by pharmacy -On pump at home, will locate dosing records, an attempt to resume basal dose tonight HEME: -Stable H&H ID: -No clinical si/sx of infection at present however many RF -Diabetic, elevated urine glucose, ams, tachycardia,leukocytosis -Leukocytosis with neutrophil predominance and left shift, could be 2/2 to DKA -Blood Cx, Urine Cx obtained -Admission cxr is negative -Monitor fever curve. LINES/IV ACCESS: -PIVs intact. -RIJ Central line intact DVT PROPHYLAXIS: -Heparin 5000 BID Dispo:Pending resolution of DKA Thank you for allowing us to be part of this patient's care. Please refer to Dr. Obrien's documentation for any further recommendations. Supervising Physician Co-Signing Physician Notes Dr. Morgan was resident physician during care of patient. I separately evaluated patient for gupta portions of the history and the exam. I was present during the critical portion of medical decision making, and I discussed the case with the resident. I generally agree with the findings and plan. Reason Critically Ill: 57-year-old female with diabetic ketoacidosis PLAN: Neuro: CAM positive: Acute encephalopathy likely metabolic -Per patient's daughter this is a normal state for her when she does enter DKA -Reportedly the patient's mental status has worsened over the last 12- hour unclear time of onset Chronic Pain: - Continue chronic pain meds Resp: Tolerating room air CV: Tachycardia: Improving Fluids/Renal: DKA - Improved goal range to 140-180, add dextrose containing solution ID: Patient afebrile - Sending urine cultures and blood cultures, chest x-ray unremarkable, no clinical evidence of meningitis -Vaccination status unknown status post splenectomy status post Whipple procedure GI/Nutrition: Reported Whipple procedure, further documentation rather supports distal pancreatectomy - Follow-up medical records or family for indication of surgical procedure Heme: DVT prophylaxis: Heparin 5000 BID Endocrine: ICU hyperglycemia protocol Will attempt to locate basal dosing and give tonight Vascular access: Right IJ Code Status: Full I have personally spent 45 minutes of critical care time in the direct management of this patient. This is a life/limb threatening event. This includes time spent evaluating patient, direct bedside care, chart review, placing orders, interpretation of diagnostic studies, discussion with consult ants, patient, and/or family members regarding treatment decisions, as well as other required patient management activities. This time is exclusive of all separately billable procedures, and teaching time and separate from and in addition to any other critical care service time. History of Present Illness Reason for Consultation: Insulin GTT Requesting Physician: Leny Morgan DO Attending Physician: Leny Morgan DO History of Present Illness Pt laying in bed this morning in No Acute Distress. Pt is fairly confused this morning, to the point where she was unable to participate in the interview AAOx1, repetitive, thought the president was Dr. Morgan. Unclear as to why this pt had a distal Pancreatomy. Pt is urinating , currently npo, no bm, got some sleep overnight. Acute concerns include AMS. Per conversation with the family pt usually becomes altered when she is in DKA. Will discuss med adherance with them late today. Admission HPI:Majority of history obtained through chart review, discussion with ER staff and discussion with patient's daughter. Mrs. 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 Patient with insulin pump in place, states it has been working fine. She reports that her blood sugars have been high over the last few days, was >600 today prior to arrival. She also reports headache, nausea, vomiting, abdominal cramping and PO intolerance. No additional complaints at this time. Upon arrival to the Er she was afebrile, mildly tachycardic at 107bpm, BP and respiratory rate stable. Laboratory workup significant for neutrophil predominant leukocytosis with WBC= 25.23. pH=7.17, HCO3=8, PG=816, Lactate=3.4, UA 3+ glucose and 4+ ketones. CXR and CT abdomen unremarkable. Patient with poor IV access therefore a triple-lumen CVC was placed in the right IJ by ER attending . Started on insulin gtt and IVF. ER Course: Zofran 4mg IV, NSS x 2 liters, insulin gtt Allergies Allergy/AdvReac Type Severity Reaction Status Date / Time No Known Allergies Allergy Verified 06/26/18 22:49 Home Medications Home Medications Medication Instructions Recorded Confirmed Type alprazolam 0.25 mg PO TID 06/26/18 06/26/18 History atorvastatin 20 mg PO HS 06/26/18 06/26/18 History bupropion HCl 150 mg PO BID 06/26/18 06/26/18 History calcium carbonate [Calcium 600] 600 mg PO DAILY 06/26/18 06/26/18 History cholecalciferol (vitamin D3) 2,000 unit PO DAILY 06/26/18 06/26/18 History [Vitamin D3] conjugated estrogens [Premarin] 0.3 mg PO DAILY 06/26/18 06/26/18 History estradiol 1 g VAGINAL 2XWK PRN 06/26/18 06/26/18 History famotidine 40 mg PO BID 06/26/18 06/26/18 History fentanyl 12 mcg TOPICAL Q3D 06/26/18 06/26/18 History fentanyl 25 mcg TOPICAL Q3D 06/26/18 06/26/18 History folic acid 1 mg PO DAILY 06/26/18 06/26/18 History glucagon (human recombinant) 1 dose SUBCUT UD PRN 06/26/18 06/26/18 History hyoscyamine sulfate 0.375 mg PO BID 06/26/18 06/26/18 History insulin aspart U-100 [Novolog 1 dose SUBCUT UD 06/26/18 06/26/18 History U-100 Insulin aspart] insulin glargine [Lantus U-100 12 unit SUBCUT HS PRN 06/26/18 06/26/18 History Insulin] levothyroxine 50 mcg PO DAILY 06/26/18 06/26/18 History lidocaine HCl [Lidocaine Viscous] 2 tsp PO UD 06/26/18 06/26/18 History liothyronine 12.5 mcg PO DAILY 06/26/18 06/26/18 History dkxkcw-fozjjwny-kwxhfhc [Creon] 3 cap PO UD 06/26/18 06/26/18 History medroxyprogesterone 2.5 mg PO DAILY 06/26/18 06/26/18 History montelukast 10 mg PO DAILY 06/26/18 06/26/18 History multivitamin 1 tab PO DAILY 06/26/18 06/26/18 History nystatin-triamcinolone 1 applic TOPICAL TID PRN 06/26/18 06/26/18 History omeprazole-sodium bicarbonate 1 tab PO BID 06/26/18 06/26/18 History ondansetron 8 mg PO Q6H PRN 06/26/18 06/26/18 History oxycodone-acetaminophen 1 tab PO QID PRN 06/26/18 06/26/18 History sucralfate [Carafate] 10 ml PO QID PRN 06/26/18 06/26/18 History valacyclovir 500 mg PO BID 06/26/18 06/26/18 History zoledronic tjwg-aarbbymp-wyfpj 5 mg IV UD 06/26/18 06/26/18 History Patient History Medical History DKA (diabetic ketoacidoses) (Acute) Small bowel obstruction (Resolved 12/21/12) Anxiety Diabetes Peptic ulcer disease Surgical History History of resection of pancreas S/P splenectomy Family History Other Adopted Social History Preferred Language: Citizen Of [place] Communication Ability: Effective Check Writer Required: No Beliefs That Will Affect Care: None Current Living Situation: Spouse Other Information That Helps Us Care for You: No Feels Safe at Home: Yes Safety Concerns: Feels Safe At This Time Smoking Status: Never smoker Hx Substance Use: No Physical Exam Vital Signs (Past 24 Hours): Last Vital Signs Temp 36.3 C L 06/27/18 03:00 Pulse 110 H 06/27/18 06:00 Resp 28 H 06/27/18 06:00 BP 143/73 H 06/27/18 06:00 Pulse Ox 100 06/27/18 06:00 Physical Exam: GEN: WD/WN, +ve AMS, NAD EYES: PERRLA, EOMI, unable to assess peripheral vision Throat: negative for erythema Neck: Trachea midline, -JVD, right IJ in place Chest: CTAB/L, no wrr, no increased work of breathing, no accessory muscle use GI: ABD pain, Nausea, NL BS, Soft, non distended, no guarding MSK: Moves all extremities, Strength 5/5 throughout Skin: I did not appreciate any rashes Neuro AAOx1 pt was able to name the hospital, when asked who the president was she started to repeat Dr. Morgan, than stating she was sorry, attention is not intact CN II-XII intact, no focal motor or sensory deficits, unable to assess peripheral vision, appeared to have difficulties with proprioception Psych: A: well dressed well groomed; B appropriate; S non pressured, normal prosody; M "I feel better"; A congruent; T tangential, repeatitive Results & Data Laboratory Results 06/26/18 22:26 06/27/18 07:32 06/27/18 06/27/18 06/27/18 Range/Units 07:32 07:32 07:32 WBC (4.8-10.8) K/uL RBC (4.2-5.4) M/uL Hgb (12.0-16.0) g/dL Hct (37-47) % MCV (80-100) fL MCH (25-34) pg MCHC (32-36) g/dL RDW Std Deviation (36.4-46.3) fL RDW Coeff of Leopoldo (11.5-14.5) % Plt Count (130-400) K/uL MPV (7.4-10.4) fL Immature Gran % (Auto) % Neut % (Auto) % Lymph % (Auto) % [place] % (Auto) % Eos % (Auto) % Baso % (Auto) % Immature Gran # (Auto) (0.00-0.02) K/uL Neut # (Auto) (1.4-6.5) K/uL Lymph # (Auto) (1.2-3.4) K/uL [place] # (Auto) (0.11-0.59) K/uL Eos # (Auto) (0-0.5) K/uL Baso # (Auto) (0-0.2) K/uL Toxic Vacuolation Echinocytes VBG pH 7.32 L (7.36-7.41) VBG pCO2 (38-50) mmHg VBG pO2 mmHg VBG HCO3 mmol/L VBG O2 Saturation % VBG Base Excess mEq/L Barometric Pressure mm/Hg Sodium 137 (136-145) mmol/L Potassium 4.0 (3.5-5.1) mmol/L Chloride 111 H (98-107) mmol/L Carbon Dioxide 13 L (21-32) mmol/L Anion Gap 13.0 H (3-11) BUN 26 H (7-18) mg/dl Creatinine 1.04 (0.6-1.2) mg/dl Est Cr Clr Drug Dosing 40.1 ml/min Est GFR ( Amer) 68.6 Est GFR (Non-Af Amer) 59.2 BUN/Creatinine Ratio 25.2 H (10-20) Glucose 298 H (70-99) mg/dl POC Glucose (70-99) Lactate 1.3 (0.4-2.0) mmol/L Calcium 8.4 L (8.5-10.1) mg/dl Phosphorus 1.9 L (2.5-4.9) mg/dl Magnesium 2.2 (1.8-2.4) mg/dl Total Bilirubin (0.2-1) mg/dl AST (15-37) U/L ALT (12-78) U/L Alkaline Phosphatase (45-117) U/L Troponin I (0-0.045) ng/ml Total Protein (6.4-8.2) gm/dl Albumin (3.4-5.0) gm/dl Globulin (2.5-4.0) gm/dl Albumin/Globulin Ratio (0.9-2) Lipase (73-393) U/L Beta-Hydroxybutyric Acd (0.2-2.81) mg/dl Urine Color Urine Appearance (Clear) Urine pH (4.5-7.5) POC Urine pH Ur Specific [place] (1.000-1.030) Urine Protein (Negative) POC Urine Protein (Negative) Urine Glucose (UA) (Negative) POC Ur Glucose (UA) (Normal) Urine Ketones (Negative) POC Urine Ketones (Negative) Urine Blood (Negative) POC Urine Blood (Negative) Urine Nitrite (Negative) POC Urine Nitrite (Negative) Urine Bilirubin (Negative) POC Urine Bilirubin (Negative) Urine Urobilinogen (Negative) POC Urine Urobilinogen (Normal) Ur Leukocyte Esterase (Negative) POC U Leukocyte Esteras (Negative) Nasal Screen MRSA (PCR) (Negative) 06/27/18 06/27/18 06/27/18 Range/Units 05:21 04:26 03:49 WBC (4.8-10.8) K/uL RBC (4.2-5.4) M/uL Hgb (12.0-16.0) g/dL Hct (37-47) % MCV (80-100) fL MCH (25-34) pg MCHC (32-36) g/dL RDW Std Deviation (36.4-46.3) fL RDW Coeff of Leopoldo (11.5-14.5) % Plt Count (130-400) K/uL MPV (7.4-10.4) fL Immature Gran % (Auto) % Neut % (Auto) % Lymph % (Auto) % [place] % (Auto) % Eos % (Auto) % Baso % (Auto) % Immature Gran # (Auto) (0.00-0.02) K/uL Neut # (Auto) (1.4-6.5) K/uL Lymph # (Auto) (1.2-3.4) K/uL [place] # (Auto) (0.11-0.59) K/uL Eos # (Auto) (0-0.5) K/uL Baso # (Auto) (0-0.2) K/uL Toxic Vacuolation Echinocytes VBG pH 7.24 L (7.36-7.41) VBG pCO2 (38-50) mmHg VBG pO2 mmHg VBG HCO3 mmol/L VBG O2 Saturation % VBG Base Excess mEq/L Barometric Pressure mm/Hg Sodium (136-145) mmol/L Potassium (3.5-5.1) mmol/L Chloride (98-107) mmol/L Carbon Dioxide (21-32) mmol/L Anion Gap (3-11) BUN (7-18) mg/dl Creatinine (0.6-1.2) mg/dl Est Cr Clr Drug Dosing ml/min Est GFR ( Amer) Est GFR (Non-Af Amer) BUN/Creatinine Ratio (10-20) Glucose (70-99) mg/dl POC Glucose 382 H* 415 H* (70-99) Lactate (0.4-2.0) mmol/L Calcium (8.5-10.1) mg/dl Phosphorus (2.5-4.9) mg/dl Magnesium (1.8-2.4) mg/dl Total Bilirubin (0.2-1) mg/dl AST (15-37) U/L ALT (12-78) U/L Alkaline Phosphatase (45-117) U/L Troponin I (0-0.045) ng/ml Total Protein (6.4-8.2) gm/dl Albumin (3.4-5.0) gm/dl Globulin (2.5-4.0) gm/dl Albumin/Globulin Ratio (0.9-2) Lipase (73-393) U/L Beta-Hydroxybutyric Acd (0.2-2.81) mg/dl Urine Color Urine Appearance (Clear) Urine pH (4.5-7.5) POC Urine pH Ur Specific [place] (1.000-1.030) Urine Protein (Negative) POC Urine Protein (Negative) Urine Glucose (UA) (Negative) POC Ur Glucose (UA) (Normal) Urine Ketones (Negative) POC Urine Ketones (Negative) Urine Blood (Negative) POC Urine Blood (Negative) Urine Nitrite (Negative) POC Urine Nitrite (Negative) Urine Bilirubin (Negative) POC Urine Bilirubin (Negative) Urine Urobilinogen (Negative) POC Urine Urobilinogen (Normal) Ur Leukocyte Esterase (Negative) POC U Leukocyte Esteras (Negative) Nasal Screen MRSA (PCR) (Negative) 06/27/18 06/27/18 06/27/18 Range/Units 03:48 03:48 03:26 WBC (4.8-10.8) K/uL RBC (4.2-5.4) M/uL Hgb (12.0-16.0) g/dL Hct (37-47) % MCV (80-100) fL MCH (25-34) pg MCHC (32-36) g/dL RDW Std Deviation (36.4-46.3) fL RDW Coeff of Leopoldo (11.5-14.5) % Plt Count (130-400) K/uL MPV (7.4-10.4) fL Immature Gran % (Auto) % Neut % (Auto) % Lymph % (Auto) % [place] % (Auto) % Eos % (Auto) % Baso % (Auto) % Immature Gran # (Auto) (0.00-0.02) K/uL Neut # (Auto) (1.4-6.5) K/uL Lymph # (Auto) (1.2-3.4) K/uL [place] # (Auto) (0.11-0.59) K/uL Eos # (Auto) (0-0.5) K/uL Baso # (Auto) (0-0.2) K/uL Toxic Vacuolation Echinocytes VBG pH (7.36-7.41) VBG pCO2 (38-50) mmHg VBG pO2 mmHg VBG HCO3 mmol/L VBG O2 Saturation % VBG Base Excess mEq/L Barometric Pressure mm/Hg Sodium 135 L (136-145) mmol/L Potassium 3.9 D (3.5-5.1) mmol/L Chloride 109 H (98-107) mmol/L Carbon Dioxide 10 L (21-32) mmol/L Anion Gap 16.0 H (3-11) BUN 26 H (7-18) mg/dl Creatinine 1.11 (0.6-1.2) mg/dl Est Cr Clr Drug Dosing 37.6 ml/min Est GFR ( Amer) 63.4 Est GFR (Non-Af Amer) 54.7 BUN/Creatinine Ratio 23.9 H (10-20) Glucose 413 H* (70-99) mg/dl POC Glucose 426 H* (70-99) Lactate 2.0 (0.4-2.0) mmol/L Calcium 8.0 L (8.5-10.1) mg/dl Phosphorus 2.3 L D (2.5-4.9) mg/dl Magnesium 2.1 (1.8-2.4) mg/dl Total Bilirubin (0.2-1) mg/dl AST (15-37) U/L ALT (12-78) U/L Alkaline Phosphatase (45-117) U/L Troponin I (0-0.045) ng/ml Total Protein (6.4-8.2) gm/dl Albumin (3.4-5.0) gm/dl Globulin (2.5-4.0) gm/dl Albumin/Globulin Ratio (0.9-2) Lipase (73-393) U/L Beta-Hydroxybutyric Acd 65.96 H (0.2-2.81) mg/dl Urine Color Urine Appearance (Clear) Urine pH (4.5-7.5) POC Urine pH Ur Specific [place] (1.000-1.030) Urine Protein (Negative) POC Urine Protein (Negative) Urine Glucose (UA) (Negative) POC Ur Glucose (UA) (Normal) Urine Ketones (Negative) POC Urine Ketones (Negative) Urine Blood (Negative) POC Urine Blood (Negative) Urine Nitrite (Negative) POC Urine Nitrite (Negative) Urine Bilirubin (Negative) POC Urine Bilirubin (Negative) Urine Urobilinogen (Negative) POC Urine Urobilinogen (Normal) Ur Leukocyte Esterase (Negative) POC U Leukocyte Esteras (Negative) Nasal Screen MRSA (PCR) (Negative) 06/27/18 06/27/18 06/27/18 Range/Units 03:00 02:30 01:03 WBC (4.8-10.8) K/uL RBC (4.2-5.4) M/uL Hgb (12.0-16.0) g/dL Hct (37-47) % MCV (80-100) fL MCH (25-34) pg MCHC (32-36) g/dL RDW Std Deviation (36.4-46.3) fL RDW Coeff of Leopoldo (11.5-14.5) % Plt Count (130-400) K/uL MPV (7.4-10.4) fL Immature Gran % (Auto) % Neut % (Auto) % Lymph % (Auto) % [place] % (Auto) % Eos % (Auto) % Baso % (Auto) % Immature Gran # (Auto) (0.00-0.02) K/uL Neut # (Auto) (1.4-6.5) K/uL Lymph # (Auto) (1.2-3.4) K/uL [place] # (Auto) (0.11-0.59) K/uL Eos # (Auto) (0-0.5) K/uL Baso # (Auto) (0-0.2) K/uL Toxic Vacuolation Echinocytes VBG pH (7.36-7.41) VBG pCO2 (38-50) mmHg VBG pO2 mmHg VBG HCO3 mmol/L VBG O2 Saturation % VBG Base Excess mEq/L Barometric Pressure mm/Hg Sodium (136-145) mmol/L Potassium (3.5-5.1) mmol/L Chloride (98-107) mmol/L Carbon Dioxide (21-32) mmol/L Anion Gap (3-11) BUN (7-18) mg/dl Creatinine (0.6-1.2) mg/dl Est Cr Clr Drug Dosing ml/min Est GFR ( Amer) Est GFR (Non-Af Amer) BUN/Creatinine Ratio (10-20) Glucose (70-99) mg/dl POC Glucose 461 H* > 600 H* (70-99) Lactate (0.4-2.0) mmol/L Calcium (8.5-10.1) mg/dl Phosphorus (2.5-4.9) mg/dl Magnesium (1.8-2.4) mg/dl Total Bilirubin (0.2-1) mg/dl AST (15-37) U/L ALT (12-78) U/L Alkaline Phosphatase (45-117) U/L Troponin I (0-0.045) ng/ml Total Protein (6.4-8.2) gm/dl Albumin (3.4-5.0) gm/dl Globulin (2.5-4.0) gm/dl Albumin/Globulin Ratio (0.9-2) Lipase (73-393) U/L Beta-Hydroxybutyric Acd (0.2-2.81) mg/dl Urine Color Urine Appearance (Clear) Urine pH (4.5-7.5) POC Urine pH Ur Specific [place] (1.000-1.030) Urine Protein (Negative) POC Urine Protein (Negative) Urine Glucose (UA) (Negative) POC Ur Glucose (UA) (Normal) Urine Ketones (Negative) POC Urine Ketones (Negative) Urine Blood (Negative) POC Urine Blood (Negative) Urine Nitrite (Negative) POC Urine Nitrite (Negative) Urine Bilirubin (Negative) POC Urine Bilirubin (Negative) Urine Urobilinogen (Negative) POC Urine Urobilinogen (Normal) Ur Leukocyte Esterase (Negative) POC U Leukocyte Esteras (Negative) Nasal Screen MRSA (PCR) Negative (Negative) 06/27/18 06/27/18 06/27/18 Range/Units 00:31 00:31 00:31 WBC (4.8-10.8) K/uL RBC (4.2-5.4) M/uL Hgb (12.0-16.0) g/dL Hct (37-47) % MCV (80-100) fL MCH (25-34) pg MCHC (32-36) g/dL RDW Std Deviation (36.4-46.3) fL RDW Coeff of Leopoldo (11.5-14.5) % Plt Count (130-400) K/uL MPV (7.4-10.4) fL Immature Gran % (Auto) % Neut % (Auto) % Lymph % (Auto) % [place] % (Auto) % Eos % (Auto) % Baso % (Auto) % Immature Gran # (Auto) (0.00-0.02) K/uL Neut # (Auto) (1.4-6.5) K/uL Lymph # (Auto) (1.2-3.4) K/uL [place] # (Auto) (0.11-0.59) K/uL Eos # (Auto) (0-0.5) K/uL Baso # (Auto) (0-0.2) K/uL Toxic Vacuolation Echinocytes VBG pH 7.17 L (7.36-7.41) VBG pCO2 21 L (38-50) mmHg VBG pO2 51 mmHg VBG HCO3 7 mmol/L VBG O2 Saturation 77.7 % VBG Base Excess -19.2 mEq/L Barometric Pressure 734.6 mm/Hg Sodium 129 L (136-145) mmol/L Potassium 5.1 (3.5-5.1) mmol/L Chloride 98 (98-107) mmol/L Carbon Dioxide 6 L* (21-32) mmol/L Anion Gap 25.0 H (3-11) BUN 28 H (7-18) mg/dl Creatinine 1.18 (0.6-1.2) mg/dl Est Cr Clr Drug Dosing 35.6 ml/min Est GFR ( Amer) 58.9 Est GFR (Non-Af Amer) 50.8 BUN/Creatinine Ratio 24.1 H (10-20) Glucose 668 H* (70-99) mg/dl POC Glucose (70-99) Lactate 3.4 H* (0.4-2.0) mmol/L Calcium 9.4 (8.5-10.1) mg/dl Phosphorus 4.9 (2.5-4.9) mg/dl Magnesium 2.5 H (1.8-2.4) mg/dl Total Bilirubin (0.2-1) mg/dl AST 16 (15-37) U/L ALT (12-78) U/L Alkaline Phosphatase (45-117) U/L Troponin I (0-0.045) ng/ml Total Protein (6.4-8.2) gm/dl Albumin (3.4-5.0) gm/dl Globulin (2.5-4.0) gm/dl Albumin/Globulin Ratio (0.9-2) Lipase (73-393) U/L Beta-Hydroxybutyric Acd 84.54 H (0.2-2.81) mg/dl Urine Color Urine Appearance (Clear) Urine pH (4.5-7.5) POC Urine pH Ur Specific [place] (1.000-1.030) Urine Protein (Negative) POC Urine Protein (Negative) Urine Glucose (UA) (Negative) POC Ur Glucose (UA) (Normal) Urine Ketones (Negative) POC Urine Ketones (Negative) Urine Blood (Negative) POC Urine Blood (Negative) Urine Nitrite (Negative) POC Urine Nitrite (Negative) Urine Bilirubin (Negative) POC Urine Bilirubin (Negative) Urine Urobilinogen (Negative) POC Urine Urobilinogen (Normal) Ur Leukocyte Esterase (Negative) POC U Leukocyte Esteras (Negative) Nasal Screen MRSA (PCR) (Negative) 06/26/18 06/26/18 06/26/18 Range/Units 23:26 23:26 22:26 WBC (4.8-10.8) K/uL RBC (4.2-5.4) M/uL Hgb (12.0-16.0) g/dL Hct (37-47) % MCV (80-100) fL MCH (25-34) pg MCHC (32-36) g/dL RDW Std Deviation (36.4-46.3) fL RDW Coeff of [place]opoldo (11.5-14.5) % Plt Count (130-400) K/uL MPV (7.4-10.4) fL Immature Gran % (Auto) % Neut % (Auto) % Lymph % (Auto) % [place] % (Auto) % Eos % (Auto) % Baso % (Auto) % Immature Gran # (Auto) (0.00-0.02) K/uL Neut # (Auto) (1.4-6.5) K/uL Lymph # (Auto) (1.2-3.4) K/uL [place] # (Auto) (0.11-0.59) K/uL Eos # (Auto) (0-0.5) K/uL Baso # (Auto) (0-0.2) K/uL Toxic Vacuolation Echinocytes VBG pH (7.36-7.41) VBG pCO2 (38-50) mmHg VBG pO2 mmHg VBG HCO3 mmol/L VBG O2 Saturation % VBG Base Excess mEq/L Barometric Pressure mm/Hg Sodium 128 L (136-145) mmol/L Potassium (3.5-5.1) mmol/L Chloride 95 L (98-107) mmol/L Carbon Dioxide 8 L* (21-32) mmol/L Anion Gap 24.0 H (3-11) BUN 26 H (7-18) mg/dl Creatinine 1.32 H (0.6-1.2) mg/dl Est Cr Clr Drug Dosing 31.8 ml/min Est GFR ( Amer) 51.4 Est GFR (Non-Af Amer) 44.4 BUN/Creatinine Ratio 20.0 (10-20) Glucose 602 H* (70-99) mg/dl POC Glucose (70-99) Lactate (0.4-2.0) mmol/L Calcium 10.0 (8.5-10.1) mg/dl Phosphorus 5.3 H (2.5-4.9) mg/dl Magnesium (1.8-2.4) mg/dl Total Bilirubin 0.8 (0.2-1) mg/dl AST (15-37) U/L ALT 20 (12-78) U/L Alkaline Phosphatase 104 (45-117) U/L Troponin I < 0.015 (0-0.045) ng/ml Total Protein 8.5 H (6.4-8.2) gm/dl Albumin 4.7 (3.4-5.0) gm/dl Globulin 3.8 (2.5-4.0) gm/dl Albumin/Globulin Ratio 1.2 (0.9-2) Lipase 22 L (73-393) U/L Beta-Hydroxybutyric Acd (0.2-2.81) mg/dl Urine Color Yellow Urine Appearance Clear (Clear) Urine pH 5.0 (4.5-7.5) POC Urine pH Pending Ur Specific [place] 1.023 (1.000-1.030) Urine Protein Negative (Negative) POC Urine Protein Trace H (Negative) Urine Glucose (UA) 3+ H (Negative) POC Ur Glucose (UA) 1000 H (Normal) Urine Ketones 4+ H (Negative) POC Urine Ketones 3+ (Large) H (Negative) Urine Blood Negative (Negative) POC Urine Blood Trace H (Negative) Urine Nitrite Negative (Negative) POC Urine Nitrite Negative (Negative) Urine Bilirubin Negative (Negative) POC Urine Bilirubin Negative (Negative) Urine Urobilinogen Negative (Negative) POC Urine Urobilinogen Normal (Normal) Ur Leukocyte Esterase Negative (Negative) POC U Leukocyte Esteras Negative (Negative) Nasal Screen MRSA (PCR) (Negative) 06/26/18 06/26/18 Range/Units 22:26 22:22 WBC 25.23 H (4.8-10.8) K/uL RBC 3.78 L (4.2-5.4) M/uL Hgb 13.7 (12.0-16.0) g/dL Hct 40.4 (37-47) % MCV 106.9 H (80-100) fL MCH 36.2 H (25-34) pg MCHC 33.9 (32-36) g/dL RDW Std Deviation 49.8 H (36.4-46.3) fL RDW Coeff of Leopoldo 12.7 (11.5-14.5) % Plt Count 361 (130-400) K/uL MPV 10.5 H (7.4-10.4) fL Immature Gran % (Auto) 0.5 % Neut % (Auto) 82.7 % Lymph % (Auto) 6.9 % [place] % (Auto) 9.8 % Eos % (Auto) 0.0 % Baso % (Auto) 0.1 % Immature Gran # (Auto) 0.13 H (0.00-0.02) K/uL Neut # (Auto) 20.86 H (1.4-6.5) K/uL Lymph # (Auto) 1.75 (1.2-3.4) K/uL [place] # (Auto) 2.47 H (0.11-0.59) K/uL Eos # (Auto) 0.00 (0-0.5) K/uL Baso # (Auto) 0.02 (0-0.2) K/uL Toxic Vacuolation 2+ Echinocytes 1+ VBG pH (7.36-7.41) VBG pCO2 (38-50) mmHg VBG pO2 mmHg VBG HCO3 mmol/L VBG O2 Saturation % VBG Base Excess mEq/L Barometric Pressure mm/Hg Sodium (136-145) mmol/L Potassium (3.5-5.1) mmol/L Chloride (98-107) mmol/L Carbon Dioxide (21-32) mmol/L Anion Gap (3-11) BUN (7-18) mg/dl Creatinine (0.6-1.2) mg/dl Est Cr Clr Drug Dosing ml/min Est GFR ( Amer) Est GFR (Non-Af Amer) BUN/Creatinine Ratio (10-20) Glucose (70-99) mg/dl POC Glucose 561 H* (70-99) Lactate (0.4-2.0) mmol/L Calcium (8.5-10.1) mg/dl Phosphorus (2.5-4.9) mg/dl Magnesium (1.8-2.4) mg/dl Total Bilirubin (0.2-1) mg/dl AST (15-37) U/L ALT (12-78) U/L Alkaline Phosphatase (45-117) U/L Troponin I (0-0.045) ng/ml Total Protein (6.4-8.2) gm/dl Albumin (3.4-5.0) gm/dl Globulin (2.5-4.0) gm/dl Albumin/Globulin Ratio (0.9-2) Lipase (73-393) U/L Beta-Hydroxybutyric Acd (0.2-2.81) mg/dl Urine Color Urine Appearance (Clear) Urine pH (4.5-7.5) POC Urine pH Ur Specific [place] (1.000-1.030) Urine Protein (Negative) POC Urine Protein (Negative) Urine Glucose (UA) (Negative) POC Ur Glucose (UA) (Normal) Urine Ketones (Negative) POC Urine Ketones (Negative) Urine Blood (Negative) POC Urine Blood (Negative) Urine Nitrite (Negative) POC Urine Nitrite (Negative) Urine Bilirubin (Negative) POC Urine Bilirubin (Negative) Urine Urobilinogen (Negative) POC Urine Urobilinogen (Normal) Ur Leukocyte Esterase (Negative) POC U Leukocyte Esteras (Negative) Nasal Screen MRSA (PCR) (Negative) Medications Administered Current Inpatient Medications Dextrose (Dextrose 50%) 25 - 50 ml IV UD PRN; Protocol PRN Reason: Hypoglycemia Protocol Stop: 07/27/18 00:59 Docusate Sodium (Colace) 100 mg PO BID PRN PRN Reason: Constipation Stop: 07/27/18 03:31 Fentanyl (Duragesic) 12 mcg TD Q3D@0900 [facility] Stop: 07/13/18 08:59 Fentanyl (Duragesic) 25 mcg TD Q3D@0900 [facility] Stop: 07/13/18 08:59 Glucagon (Glucagen) 1 mg IM UD PRN; Protocol PRN Reason: Hypoglycemia Protocol Stop: 07/27/18 00:59 Glucose (Glucose 40%) 15 - 30 gm PO UD PRN; Protocol PRN Reason: Hypoglycemia Protocol Stop: 07/27/18 00:59 Glucose (Dex4 Glucose) 4 - 8 tabs PO UD PRN; Protocol PRN Reason: Hypoglycemia Protocol Stop: 07/27/18 00:59 Heparin Sodium (Porcine) (Heparin Sodium (Porcine)) 5,000 units SQ BID [facility] Stop: 07/27/18 20:59 Insulin Human Regular 250 (units/ Sodium Chloride) 250 mls @ 1.5 mls/hr IV .Q24H DAGOBERTO; Protocol Stop: 07/27/18 01:14 Last Titration: 06/27/18 09:32 Dose: 1.5 units/hr, 1.5 mls/hr Documented by: Famotidine 20 mg/ Syringe 5 mls @ 2.5 mls/min IV Q12H [facility] Stop: 07/27/18 05:59 Last Admin: 06/27/18 07:37 Dose: 2.5 mls/min Documented by: Levothyroxine Sodium 50 mcg/ (Syringe) 2.5 mls @ 2 mls/min IV DAILY@0900 [facility] Stop: 07/27/18 08:59 Last Admin: 06/27/18 08:54 Dose: 2 mls/min Documented by: Potassium Phosphate 21 mmol/ (Sodium Chloride) 507 mls @ 88 mls/hr IV NOW ONE Stop: 06/27/18 14:15 Last Admin: 06/27/18 08:54 Dose: 88 mls/hr Documented by: Potassium Chloride/Dextrose/Sod Cl (D5w And 1/2nss + 20meq Kcl) 20 meq in 1,000 mls @ 125 mls/hr IV .Q8H [facility] Stop: 07/27/18 09:59 Last Admin: 06/27/18 10:19 Dose: 125 mls/hr Documented by: Insulin Aspart (Novolog Flexpen) 0 units SC HS [facility] Stop: 07/27/18 08:59 Last Admin: 06/27/18 07:40 Dose: Not Given Documented by: Ioversol (Optiray 320 100ml) 100 ml IV ONCE PRN PRN Reason: Interaction Checking Stop: 07/01/18 01:07 Last Admin: 06/27/18 01:08 Dose: 92 ml Documented by: Miscellaneous (Carbohydrates For Hypoglycemia) 15 - 30 gm PO PRN PRN PRN Reason: Hypoglycemia Treatment Stop: 07/27/18 00:59 Miscellaneous (Fentanyl Patch Check Placement) 1 ea N/A QS [facility] Stop: 07/27/18 07:59 Last Admin: 06/27/18 07:38 Dose: 1 ea Documented by: Miscellaneous (Fentanyl Patch Remove & Waste) 1 ea N/A Q3D@0859 [facility] Stop: 07/29/18 08:58 Miscellaneous Information (Consult Glycemic Management Pharmacy) 1 ea N/A UD PRN PRN Reason: Consult Stop: 07/27/18 03:56 Morphine Sulfate (Morphine Sulfate) 1 mg IV Q4H PRN PRN Reason: pain Stop: 07/11/18 03:31 Ondansetron HCl (Zofran) 4 mg IV Q6H PRN PRN Reason: Nausea Stop: 07/27/18 03:31 Polyethylene Glycol (Miralax Powder Packet) 17 gm PO DAILY PRN PRN Reason: Constipation Stop: 07/27/18 03:31
[2018-06-27] MEDS ORDERED: ONDANSETRON INJ 2 MG/ML 2 ML VIAL IV PRN (10:00)
[2018-06-27] MEDS: D5W AND 1/2NSS + 20MEQ KCL 20 MEQ/1,000 ML BAG IV SCH ×2 (10:19→18:07)
--- NOTE | 2018-06-27 10:47 | CT Scan Report ---
CT head/brain wo con CLINICAL HISTORY: 57 years-old Female presenting with AMS, confusion. TECHNIQUE: Multidetector CT imaging of the head was performed without the use of intravenous contrast . IV contrast: None. One or more dose lowering techniques were used consistent with the principles of ALARA (as low as reasonably achievable), including automatic exposure control, mA or kV adjustment t o individual patient size, and/or use of iterative reconstruction. COMPARISON: 12/11/2014. CT DOSE (mGy.cm): The estimated cumulative dose is 1459.56 mGycm. FINDINGS: Electronic Installer topogram: Unremarkable. Ventricles and sulci normal in size. No hemorrhage. Brain parenchyma normal in appearance with preser gilma rose-white differentiation. No acute territorial infarct. No mass effect or midline shift. No ext ra-axial fluid collection. Paranasal sinuses and mastoid air cells clear. Calvarium intact. IMPRESSION: 1. No acute intracranial abnormality. Electronically signed by: Juan Carlos Zavala M.D. 06/27/2018 10:46 AM
--- NOTE | 2018-06-27 12:11 | Pharmacy Report ---
Glycemic Control Consultation - Date of Service June 27, 2018 - Scope Scope: Glycemic Pharmacist consulted by Dr Morgan on 06/27/18 for glycemic control and to write orders per [facility] inpatient glycemic control protocol - Objective Weight: 43.1 kg Accuchecks BSG (last 24hrs): 06/26/18 06/26/18 06/27/18 22:22 22:26 00:31 Glucose 602 H* 668 H* POC Glucose 561 H* 06/27/18 06/27/18 06/27/18 01:03 02:30 03:26 Glucose POC Glucose > 600 H* 461 H* 426 H* 06/27/18 06/27/18 06/27/18 03:48 04:26 05:21 Glucose 413 H* POC Glucose 415 H* 382 H* 06/27/18 06/27/18 06/27/18 06:32 07:31 07:32 Glucose 298 H POC Glucose 300 H 294 H 06/27/18 06/27/18 06/27/18 08:33 09:31 10:22 Glucose POC Glucose 253 H 233 H 202 H 06/27/18 11:48 Glucose POC Glucose 235 H Laboratory Data (last 24hrs): 06/26/18 06/27/18 06/27/18 22:26 00:31 03:48 Potassium 5.1 3.9 D Carbon Dioxide 8 L* 6 L* 10 L Anion Gap 24.0 H 25.0 H 16.0 H Creatinine 1.32 H 1.18 1.11 Est Cr Clr Drug Dosing 31.8 35.6 37.6 Beta-Hydroxybutyric Acd 84.54 H 65.96 H 06/27/18 07:32 Potassium 4.0 Carbon Dioxide 13 L Anion Gap 13.0 H Creatinine 1.04 Est Cr Clr Drug Dosing 40.1 Beta-Hydroxybutyric Acd - Recent Pertinent Medications Outpatient Anti-diabetic Regimen: * Insulin pump: Per recent diabetes education visit note: Carb ratio 1:12; CF 1:70 * Basal rates: * 12A-2:30A: 0.6 * 2:30A-8A: 0.625 * 8A-6P: 0.600 * 6P-12A: 0.575 * A1c = Pending (9.9% 09/25/17) The patient is currently receiving: * Insulin infusion Risk Factors for Insulin Resistance: * Infection: ? * IVF: D5+1/2NS + 20K * Diet: NPO - Assessment & Plan Assessment & Plan: ASSESSMENT: * 57 yo female with type 1 diabetes and history including distal pancreatectomy presenting to the ED with DKA. Initial BSGs >600, Bicarb 8, anion gap 24, venous blood gas 7.17. * Last A1c on 09/25/17 9.9% indicating per control. * After reviewing patient's last clinical systems educator note from May- Basal was increased 5% and CF was changed to 70; CR to 12 * Leukocytosis on admission (25), patient has remained afebrile, urine/blood cultures pending for infectious workup; not currently on antibiotics * BSGs improving on insulin infusion, gap 13, bicarb 13 PLAN FOR INPATIENT GLYCEMIC CONTROL: * Starting IV insulin infusion per moderate stress protocol * Goal Range initially 150-250 mg/dl, reduced to 140-180 mg/dL * In the critical care setting, continuous IV insulin infusion has been shown to be the best method for achieving glycemic targets. * If transition off of drip is desired; Depending on patient diet/removal of dextrose from fluid- would consider using 14-17 units of lantus (17 units is 20% increase from patient's home basal with pump) to transition off and CF: 55; CR 12- and tighten as needed. * Please note that the plan above was derived based on current level of insulin resistance and hospital stress. These recommendations are appropriate for inpatient admission only. Plan of care upon discharge will need to be reassessed to avoid potential outpatient hypo/hyperglycemia. Thank you.
[2018-06-27 12:23] LABS: BUN Creatinine Ratio 25.1 (10-20); Calcium 7.9 mg/dl (8.5-10.1); Creatinine Clr Calc Pharmacy 46.9 ml/min; Est GFR (African American) 82.8; Est GFR (Non-African American) 71.4; Magnesium 2.1 mg/dl (1.8-2.4); Potassium 4.4 mmol/L (3.5-5.1)
[2018-06-27 12:29] LABS: Phosphorus 3.3 mg/dl (2.5-4.9)
[2018-06-27 15:51] LABS: BUN Creatinine Ratio 22.3 (10-20); Calcium 7.7 mg/dl (8.5-10.1); Creatinine Clr Calc Pharmacy 46.9 ml/min; Est GFR (African American) 82.8; Est GFR (Non-African American) 71.4; Magnesium 2.1 mg/dl (1.8-2.4); Potassium 4.2 mmol/L (3.5-5.1)
[2018-06-27 15:52] LABS: Phosphorus 3.2 mg/dl (2.5-4.9)
[2018-06-27] MEDS: HEPARIN SOD 5,000 UNIT/0.5 ML VIAL SQ SCH (22:10)
[2018-06-28] MEDS: D5W AND 1/2NSS + 20MEQ KCL 20 MEQ/1,000 ML BAG IV SCH (01:57)
[2018-06-28 05:38] LABS: BUN Creatinine Ratio 11.6 (10-20); Calcium 7.9 mg/dl (8.5-10.1); Creatinine Clr Calc Pharmacy 55.6 ml/min; Est GFR (African American) 101.8; Est GFR (Non-African American) 87.9; Potassium 3.3 mmol/L (3.5-5.1)
[2018-06-28 05:59] LABS: Hematocrit (blood only) 33.9 % (37-47); Hemoglobin 12.1 g/dL (12.0-16.0); Mean Corpuscular Hgb Conc 35.7 g/dL (32-36); Mean Corpuscular Volume 100.6 fL (80-100); Platelet Count 287 K/uL (130-400); RDW Coefficient of Variation 12.4 % (11.5-14.5); RDW Standard Deviation 45.6 fL (36.4-46.3); Red Blood Count 3.37 M/uL (4.2-5.4); White Blood Count 24.34 K/uL (4.8-10.8)
[2018-06-28 06:01] LABS: Basophils # (auto) 0.01 K/uL (0-0.2); Echinocytes 1+; Eosinophils # (auto) 0.01 K/uL (0-0.5); Immature Granulocytes # (auto) 0.11 K/uL (0.00-0.02); Immature Granulocytes % (auto) 0.5 %; Lymphocytes % (auto) 8.6 %; Monocytes # (auto) 2.02 K/uL (0.11-0.59); Monocytes % (auto) 8.3 %; Neutrophils # (auto) 20.09 K/uL (1.4-6.5); Neutrophils % (auto) 82.6 %
[2018-06-28] MEDS ORDERED: POTASSIUM CHLORIDE 10 MEQ TABCR PO STA (06:04)
[2018-06-28] MEDS: FAMOTIDINE 20 MG in SYRINGE 3 ML IV SCH (06:06)
[2018-06-28 07:07] LABS: Estimated Average Glucose 232 mg/dl; Hemoglobin A1C 9.7 % (4.5-5.6)
[2018-06-28] MEDS: HEPARIN SOD 5,000 UNIT/0.5 ML VIAL SQ SCH ×2 (08:36→21:49)
[2018-06-28] MEDS: CHECK FENTANYL PATCH PLACEMENT SCH ×3 (08:36→23:38)
[2018-06-28] MEDS: INSULIN ASPART 100 UNITS/ML 3 ML PEN SC SCH ×4 (08:39→21:46)
[2018-06-28] MEDS ORDERED: INSULIN GLARGINE SOLOSTAR 100 UNITS/ML 3 ML PEN SC ONE (09:00)
[2018-06-28] MEDS ORDERED: SUCRALFATE 1 GM/10 ML UDC PO PRN (09:14)
[2018-06-28] MEDS ORDERED: PANCREAZE (LIPASE 10,500U) CAP PO PRN (09:38)
[2018-06-28] MEDS ORDERED: POTASSIUM PHOS 3 MMOL/1 ML INFUSION IV STA (09:43)
--- NOTE | 2018-06-28 09:46 | Critical Care Progress Note ---
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 Subjective No overnight events. No chest pain or shortness of breath Physical Exam Vital Signs (Past 24 Hours): Last Vital Signs Temp 36.8 C 06/28/18 08:00 Pulse 91 H 06/28/18 09:00 Resp 21 06/28/18 09:00 BP 140/85 06/28/18 09:00 Pulse Ox 98 06/28/18 09:00 General: Alert. nontoxic. Skin: Warm, dry, Head: Atraumatic Ears, nose, mouth and throat: airway patent Cardiovascular: Normal peripheral perfusion Respiratory: no respiratory distress Gastrointestinal: Non distended Musculoskeletal: No deformity Results & Data Laboratory Results 06/28/18 06/28/18 06/28/18 Range/Units 10:44 09:54 07:42 WBC (4.8-10.8) K/uL RBC (4.2-5.4) M/uL Hgb (12.0-16.0) g/dL Hct (37-47) % MCV (80-100) fL MCH (25-34) pg MCHC (32-36) g/dL RDW Std Deviation (36.4-46.3) fL RDW Coeff of Leopoldo (11.5-14.5) % Plt Count (130-400) K/uL MPV (7.4-10.4) fL Immature Gran % (Auto) % Neut % (Auto) % Lymph % (Auto) % [place] % (Auto) % Eos % (Auto) % Baso % (Auto) % Immature Gran # (Auto) (0.00-0.02) K/uL Neut # (Auto) (1.4-6.5) K/uL Lymph # (Auto) (1.2-3.4) K/uL [place] # (Auto) (0.11-0.59) K/uL Eos # (Auto) (0-0.5) K/uL Baso # (Auto) (0-0.2) K/uL Echinocytes VBG pH (7.36-7.41) Sodium (136-145) mmol/L Potassium (3.5-5.1) mmol/L Chloride (98-107) mmol/L Carbon Dioxide (21-32) mmol/L Anion Gap (3-11) BUN (7-18) mg/dl Creatinine (0.6-1.2) mg/dl Est Cr Clr Drug Dosing ml/min Est GFR ( Amer) Est GFR (Non-Af Amer) BUN/Creatinine Ratio (10-20) Glucose (70-99) mg/dl POC Glucose 224 H 281 H 157 H (70-99) Estimat Average Glucose mg/dl Hemoglobin A1c (4.5-5.6) % Calcium (8.5-10.1) mg/dl Phosphorus (2.5-4.9) mg/dl Magnesium (1.8-2.4) mg/dl 06/28/18 06/28/18 06/28/18 Range/Units 05:31 04:55 04:55 WBC 24.34 H (4.8-10.8) K/uL RBC 3.37 L (4.2-5.4) M/uL Hgb 12.1 (12.0-16.0) g/dL Hct 33.9 L (37-47) % MCV 100.6 H D (80-100) fL MCH 35.9 H (25-34) pg MCHC 35.7 (32-36) g/dL RDW Std Deviation 45.6 (36.4-46.3) fL RDW Coeff of Leopoldo 12.4 (11.5-14.5) % Plt Count 287 (130-400) K/uL MPV 10.0 (7.4-10.4) fL Immature Gran % (Auto) 0.5 % Neut % (Auto) 82.6 % Lymph % (Auto) 8.6 % [place] % (Auto) 8.3 % Eos % (Auto) 0.0 % Baso % (Auto) 0.0 % Immature Gran # (Auto) 0.11 H (0.00-0.02) K/uL Neut # (Auto) 20.09 H (1.4-6.5) K/uL Lymph # (Auto) 2.10 (1.2-3.4) K/uL [place] # (Auto) 2.02 H (0.11-0.59) K/uL Eos # (Auto) 0.01 (0-0.5) K/uL Baso # (Auto) 0.01 (0-0.2) K/uL Echinocytes 1+ VBG pH (7.36-7.41) Sodium 139 (136-145) mmol/L Potassium 3.3 L D (3.5-5.1) mmol/L Chloride 114 H (98-107) mmol/L Carbon Dioxide 17 L (21-32) mmol/L Anion Gap 8.0 (3-11) BUN 9 D (7-18) mg/dl Creatinine 0.75 (0.6-1.2) mg/dl Est Cr Clr Drug Dosing 55.6 ml/min Est GFR ( Amer) 101.8 Est GFR (Non-Af Amer) 87.9 BUN/Creatinine Ratio 11.6 (10-20) Glucose 173 H (70-99) mg/dl POC Glucose 156 H (70-99) Estimat Average Glucose mg/dl Hemoglobin A1c (4.5-5.6) % Calcium 7.9 L (8.5-10.1) mg/dl Phosphorus (2.5-4.9) mg/dl Magnesium (1.8-2.4) mg/dl 06/28/18 06/28/18 06/28/18 Range/Units 04:55 03:33 01:25 WBC (4.8-10.8) K/uL RBC (4.2-5.4) M/uL Hgb (12.0-16.0) g/dL Hct (37-47) % MCV (80-100) fL MCH (25-34) pg MCHC (32-36) g/dL RDW Std Deviation (36.4-46.3) fL RDW Coeff of Leopoldo (11.5-14.5) % Plt Count (130-400) K/uL MPV (7.4-10.4) fL Immature Gran % (Auto) % Neut % (Auto) % Lymph % (Auto) % [place] % (Auto) % Eos % (Auto) % Baso % (Auto) % Immature Gran # (Auto) (0.00-0.02) K/uL Neut # (Auto) (1.4-6.5) K/uL Lymph # (Auto) (1.2-3.4) K/uL [place] # (Auto) (0.11-0.59) K/uL Eos # (Auto) (0-0.5) K/uL Baso # (Auto) (0-0.2) K/uL Echinocytes VBG pH (7.36-7.41) Sodium (136-145) mmol/L Potassium (3.5-5.1) mmol/L Chloride (98-107) mmol/L Carbon Dioxide (21-32) mmol/L Anion Gap (3-11) BUN (7-18) mg/dl Creatinine (0.6-1.2) mg/dl Est Cr Clr Drug Dosing ml/min Est GFR ( Amer) Est GFR (Non-Af Amer) BUN/Creatinine Ratio (10-20) Glucose (70-99) mg/dl POC Glucose 160 H 177 H (70-99) Estimat Average Glucose 232 mg/dl Hemoglobin A1c 9.7 H (4.5-5.6) % Calcium (8.5-10.1) mg/dl Phosphorus (2.5-4.9) mg/dl Magnesium (1.8-2.4) mg/dl 06/27/18 06/27/18 06/27/18 Range/Units 23:37 22:34 21:40 WBC (4.8-10.8) K/uL RBC (4.2-5.4) M/uL Hgb (12.0-16.0) g/dL Hct (37-47) % MCV (80-100) fL MCH (25-34) pg MCHC (32-36) g/dL RDW Std Deviation (36.4-46.3) fL RDW Coeff of Leopoldo (11.5-14.5) % Plt Count (130-400) K/uL MPV (7.4-10.4) fL Immature Gran % (Auto) % Neut % (Auto) % Lymph % (Auto) % [place] % (Auto) % Eos % (Auto) % Baso % (Auto) % Immature Gran # (Auto) (0.00-0.02) K/uL Neut # (Auto) (1.4-6.5) K/uL Lymph # (Auto) (1.2-3.4) K/uL [place] # (Auto) (0.11-0.59) K/uL Eos # (Auto) (0-0.5) K/uL Baso # (Auto) (0-0.2) K/uL Echinocytes VBG pH (7.36-7.41) Sodium (136-145) mmol/L Potassium (3.5-5.1) mmol/L Chloride (98-107) mmol/L Carbon Dioxide (21-32) mmol/L Anion Gap (3-11) BUN (7-18) mg/dl Creatinine (0.6-1.2) mg/dl Est Cr Clr Drug Dosing ml/min Est GFR ( Amer) Est GFR (Non-Af Amer) BUN/Creatinine Ratio (10-20) Glucose (70-99) mg/dl POC Glucose 168 H 162 H 155 H (70-99) Estimat Average Glucose mg/dl Hemoglobin A1c (4.5-5.6) % Calcium (8.5-10.1) mg/dl Phosphorus (2.5-4.9) mg/dl Magnesium (1.8-2.4) mg/dl 06/27/18 06/27/18 06/27/18 Range/Units 20:35 19:30 18:26 WBC (4.8-10.8) K/uL RBC (4.2-5.4) M/uL Hgb (12.0-16.0) g/dL Hct (37-47) % MCV (80-100) fL MCH (25-34) pg MCHC (32-36) g/dL RDW Std Deviation (36.4-46.3) fL RDW Coeff of Leopoldo (11.5-14.5) % Plt Count (130-400) K/uL MPV (7.4-10.4) fL Immature Gran % (Auto) % Neut % (Auto) % Lymph % (Auto) % [place] % (Auto) % Eos % (Auto) % Baso % (Auto) % Immature Gran # (Auto) (0.00-0.02) K/uL Neut # (Auto) (1.4-6.5) K/uL Lymph # (Auto) (1.2-3.4) K/uL [place] # (Auto) (0.11-0.59) K/uL Eos # (Auto) (0-0.5) K/uL Baso # (Auto) (0-0.2) K/uL Echinocytes VBG pH (7.36-7.41) Sodium (136-145) mmol/L Potassium (3.5-5.1) mmol/L Chloride (98-107) mmol/L Carbon Dioxide (21-32) mmol/L Anion Gap (3-11) BUN (7-18) mg/dl Creatinine (0.6-1.2) mg/dl Est Cr Clr Drug Dosing ml/min Est GFR ( Amer) Est GFR (Non-Af Amer) BUN/Creatinine Ratio (10-20) Glucose (70-99) mg/dl POC Glucose 149 H 195 H 207 H (70-99) Estimat Average Glucose mg/dl Hemoglobin A1c (4.5-5.6) % Calcium (8.5-10.1) mg/dl Phosphorus (2.5-4.9) mg/dl Magnesium (1.8-2.4) mg/dl 06/27/18 06/27/18 06/27/18 Range/Units 17:40 16:32 15:26 WBC (4.8-10.8) K/uL RBC (4.2-5.4) M/uL Hgb (12.0-16.0) g/dL Hct (37-47) % MCV (80-100) fL MCH (25-34) pg MCHC (32-36) g/dL RDW Std Deviation (36.4-46.3) fL RDW Coeff of Leopoldo (11.5-14.5) % Plt Count (130-400) K/uL MPV (7.4-10.4) fL Immature Gran % (Auto) % Neut % (Auto) % Lymph % (Auto) % [place] % (Auto) % Eos % (Auto) % Baso % (Auto) % Immature Gran # (Auto) (0.00-0.02) K/uL Neut # (Auto) (1.4-6.5) K/uL Lymph # (Auto) (1.2-3.4) K/uL [place] # (Auto) (0.11-0.59) K/uL Eos # (Auto) (0-0.5) K/uL Baso # (Auto) (0-0.2) K/uL Echinocytes VBG pH (7.36-7.41) Sodium (136-145) mmol/L Potassium (3.5-5.1) mmol/L Chloride (98-107) mmol/L Carbon Dioxide (21-32) mmol/L Anion Gap (3-11) BUN (7-18) mg/dl Creatinine (0.6-1.2) mg/dl Est Cr Clr Drug Dosing ml/min Est GFR ( Amer) Est GFR (Non-Af Amer) BUN/Creatinine Ratio (10-20) Glucose (70-99) mg/dl POC Glucose 204 H 183 H 235 H (70-99) Estimat Average Glucose mg/dl Hemoglobin A1c (4.5-5.6) % Calcium (8.5-10.1) mg/dl Phosphorus (2.5-4.9) mg/dl Magnesium (1.8-2.4) mg/dl 06/27/18 06/27/18 06/27/18 Range/Units 15:25 15:25 14:38 WBC (4.8-10.8) K/uL RBC (4.2-5.4) M/uL Hgb (12.0-16.0) g/dL Hct (37-47) % MCV (80-100) fL MCH (25-34) pg MCHC (32-36) g/dL RDW Std Deviation (36.4-46.3) fL RDW Coeff of Leopoldo (11.5-14.5) % Plt Count (130-400) K/uL MPV (7.4-10.4) fL Immature Gran % (Auto) % Neut % (Auto) % Lymph % (Auto) % [place] % (Auto) % Eos % (Auto) % Baso % (Auto) % Immature Gran # (Auto) (0.00-0.02) K/uL Neut # (Auto) (1.4-6.5) K/uL Lymph # (Auto) (1.2-3.4) K/uL [place] # (Auto) (0.11-0.59) K/uL Eos # (Auto) (0-0.5) K/uL Baso # (Auto) (0-0.2) K/uL Echinocytes VBG pH 7.42 H (7.36-7.41) Sodium 137 (136-145) mmol/L Potassium 4.2 (3.5-5.1) mmol/L Chloride 113 H (98-107) mmol/L Carbon Dioxide 18 L (21-32) mmol/L Anion Gap 6.0 (3-11) BUN 20 H (7-18) mg/dl Creatinine 0.89 (0.6-1.2) mg/dl Est Cr Clr Drug Dosing 46.9 ml/min Est GFR ( Amer) 82.8 Est GFR (Non-Af Amer) 71.4 BUN/Creatinine Ratio 22.3 H (10-20) Glucose 229 H (70-99) mg/dl POC Glucose 205 H (70-99) Estimat Average Glucose mg/dl Hemoglobin A1c (4.5-5.6) % Calcium 7.7 L (8.5-10.1) mg/dl Phosphorus 3.2 (2.5-4.9) mg/dl Magnesium 2.1 (1.8-2.4) mg/dl 06/27/18 06/27/18 06/27/18 Range/Units 13:40 12:46 11:51 WBC (4.8-10.8) K/uL RBC (4.2-5.4) M/uL Hgb (12.0-16.0) g/dL Hct (37-47) % MCV (80-100) fL MCH (25-34) pg MCHC (32-36) g/dL RDW Std Deviation (36.4-46.3) fL RDW Coeff of Leopoldo (11.5-14.5) % Plt Count (130-400) K/uL MPV (7.4-10.4) fL Immature Gran % (Auto) % Neut % (Auto) % Lymph % (Auto) % [place] % (Auto) % Eos % (Auto) % Baso % (Auto) % Immature Gran # (Auto) (0.00-0.02) K/uL Neut # (Auto) (1.4-6.5) K/uL Lymph # (Auto) (1.2-3.4) K/uL [place] # (Auto) (0.11-0.59) K/uL Eos # (Auto) (0-0.5) K/uL Baso # (Auto) (0-0.2) K/uL Echinocytes VBG pH (7.36-7.41) Sodium (136-145) mmol/L Potassium (3.5-5.1) mmol/L Chloride (98-107) mmol/L Carbon Dioxide (21-32) mmol/L Anion Gap (3-11) BUN (7-18) mg/dl Creatinine (0.6-1.2) mg/dl Est Cr Clr Drug Dosing ml/min Est GFR ( Amer) Est GFR (Non-Af Amer) BUN/Creatinine Ratio (10-20) Glucose (70-99) mg/dl POC Glucose 227 H 255 H (70-99) Estimat Average Glucose mg/dl Hemoglobin A1c (4.5-5.6) % Calcium (8.5-10.1) mg/dl Phosphorus 3.3 D (2.5-4.9) mg/dl Magnesium (1.8-2.4) mg/dl
[2018-06-28] MEDS: SODIUM CHLOR 0.45% + 20MEQ KCL 20 MEQ/1,000 ML BAG IV SCH ×2 (09:48→18:23)
[2018-06-28] MEDS: INSULIN REGULAR 250 UNITS in SODIUM CHLORIDE 0.9% 247.5 ML IV SCH (09:49)
--- NOTE | 2018-06-28 09:54 | Pharmacy Report ---
Pharmacy Glycemic Short Note 2 - Date of Service June 28, 2018 - Glycemic Short BSG Results (Last 24 hours): 06/27/18 06/27/18 06/27/18 06:32 07:31 08:33 Glucose POC Glucose 300 H 294 H 253 H 06/27/18 06/27/18 06/27/18 09:31 10:22 11:48 Glucose POC Glucose 233 H 202 H 235 H 06/27/18 06/27/18 06/27/18 11:51 12:46 13:40 Glucose 237 H POC Glucose 255 H 227 H 06/27/18 06/27/18 06/27/18 14:38 15:25 15:26 Glucose 229 H POC Glucose 205 H 235 H 06/27/18 06/27/18 06/27/18 16:32 17:40 18:26 Glucose POC Glucose 183 H 204 H 207 H 06/27/18 06/27/18 06/27/18 19:30 20:35 21:40 Glucose POC Glucose 195 H 149 H 155 H 06/27/18 06/27/18 06/28/18 22:34 23:37 01:25 Glucose POC Glucose 162 H 168 H 177 H 06/28/18 06/28/18 06/28/18 03:33 04:55 05:31 Glucose 173 H POC Glucose 160 H 156 H 06/28/18 07:42 Glucose POC Glucose 157 H OUTPATIENT ANTIDIABETIC REGIMEN: * Insulin Pump: CR 1:12, CF 1:70; See initial consult for basal rate * A1c 9.7% ASSESSMENT: * Patient continued on insulin drip overnight, now ordered diet and will transition off on insulin drip * Will use patient's home basal rate 14 units x 1 * Per Patient goal at home is never less than 200 and patient's A1c 9.7% reflects average of in the 200s, therefore will be conservative with correction factor for now and tighten as needed. PLAN FOR INPATIENT GLYCEMIC CONTROL: * Hold outpatient oral diabetes medications * Basal insulin * Lantus 14 units x 1 * Bolus insulin * NovoLog per scale ACHS or Q6hrs while NPO * Goal Range: Low 140 mg/dL - High 180 mg/dL * Correction Factor: 60 mg/dL/unit * Nutritional / Prandial insulin per carb ratio of 1 unit per 12 grams CHO consumed
[2018-06-28] MEDS: LEVOTHYROXINE SODIUM 50 MCG in SYRINGE 0 ML IV SCH (10:00)
[2018-06-28] MEDS ORDERED: POTASSIUM PHOSPHATE 24 MMOL in SODIUM CHLORIDE 0.9% 500 ML IV ONE (10:00)
--- NOTE | 2018-06-28 10:10 | Hospitalist Progress Note ---
Date of Service June 28, 2018 Assessment & Plan (1) DKA (diabetic ketoacidoses): Patient with history of procedure for necrotic pancreas, insulin-dependent diabetes with insulin pump in place. She follows regularly with endocrinology and last saw the museum educator on 09 June 2018. During that visit her basal insulin was increased by 5%, sensitivity changed from 65 to 70 and carb ratio changed from 1:9.5 to 1:12. A1C=9.9 on 09/25/17. Patient presenting now in DKA, she is AA&O, alert but agitated -Admit to MICU -Patient was initally treated on NPO and insulin drip protocol. -Now will bridge her to long acting insulin -Anion gap is now closed. -patient is having breakfast -Will likely transfer patient out of ICU today. -Zofran PRN nausea (2) PUD (peptic ulcer disease): Patient with history of PUD. Is on Carafate and BID Pepcid -Pepcid 20mg IV BID (3) Hypothyroid: Patient on Synthroid -Change to IV synthroid while NPO; Will switch to PO. (4) Elevated lactic acid level: Lactate = 3.4 on admission. This has resolved. (5) Chronic pain: Patient with history of chronic pain, chronic narcotic use. Post- operative abdominal pain and chronic back pain. She follows with Orthopedics for her back pain. She has been recommended to pain management but does not wish to see them. She also fell on 04/23/18 and sustained a left humeral neck fracture therefore has some pain from that. She has osteoporosis and is on Reclast, Vitamin D and Calcium. To have Reclast in October -Continue Fentanyl patches -Morphine PRN Ppx - SCDs to bilateral Les Code - Full Dispo - Will transfer to medical today. Anticipate discharge in next 24-48 hours Spent 35 minutes in management of patient. Patient's daughter, Brennan Jackson at [phone] Subjective This is a pleasant 49-year-old female. Was currently in ICU patient reports feelings 100% back to normal. .Patient denies any new complaints at this time. Patient repeats the story that while she is how she is very nauseous and vomited; She did not want to tell the story to her as he was on a trip to visit family since his mother recently . Patient appears to be very anxious in regards to her diabetes and is concerned that this complication may occur again Review of Systems All systems reviewed & are unremarkable except as noted in HPI & below Physical Exam Vital Signs (Past 24 Hours): Last Vital Signs Temp 36.8 C 06/28/18 08:00 Pulse 91 H 06/28/18 09:00 Resp 21 06/28/18 09:00 BP 140/85 06/28/18 09:00 Pulse Ox 98 06/28/18 09:00 Physical Exam: General: patient appears very calm, NAD, no longer appears ill Skin: warm, dry, intact, no rashes or lesions HEENT: NC/AT, PERRL, EOMI, anicteric sclera, conjunctiva without injection, external ear normal to inspection and nontender, nares patent, dry mucus membranes, dentition intact, no oropharyngeal lesions, neck supple, trachea midline, no LAD, no thyromegaly, no JVD Heart: +S1/S2, regular, tachycardic, no m/r/g Lungs: equal air entry bilaterally, no rales/rhonchi/wheezes Abd: +BS, soft, NT/ND, no masses/organomegaly/ascites, insulin pump in LLQ Ext: warm, 2+ pulses in UE/LE bilaterally, no clubbing/cyanosis or edema Neuro: nonfocal, patient AA&O x 4, speech intact, no facial droop, moving all extremities on command with equal strength 5/5 (1) DKA (diabetic ketoacidoses) Diabetes mellitus complication detail: without coma Diabetes mellitus type: type 1 Qualified Code(s): E10.10 - Type 1 diabetes mellitus with ketoacidosis without coma (2) Chronic pain Chronic pain type: chronic pain syndrome Qualified Code(s): G89.4 - Chronic pain syndrome (3) Hypothyroid Hypothyroidism type: unspecified Qualified Code(s): E03.9 - Hypothyroidism, unspecified
[2018-06-28] MEDS: PANCREAZE (LIPASE 10,500U) CAP PO SCH ×2 (12:19→16:48)
[2018-06-28] MEDS: ALPRAZolam 0.25 MG TABLET PO PRN (16:48)
[2018-06-28] MEDS: BuPROPion SR 150 MG TABCR PO SCH (20:10)
[2018-06-28] MEDS: VALACYCLOVIR HCL 500 MG TABLET PO SCH (20:10)
[2018-06-28] MEDS: FAMOTIDINE 20 MG TAB PO SCH (20:10)
[2018-06-28] MEDS: HYOSCYAMINE SULFATE 0.375 MG TABCR PO SCH (20:10)
[2018-06-28] MEDS: MoRPHine SULFATE 2 MG/ML CARP IV PRN (20:50)
[2018-06-28] MEDS ORDERED: FAMOTIDINE 20 MG TAB PO SCH (21:00)
[2018-06-28] MEDS ORDERED: MONTELUKAST SODIUM 10 MG TABLET PO SCH (21:00)
[2018-06-28] MEDS ORDERED: ATORVASTATIN 20 MG TAB PO SCH (21:00)
[2018-06-29] MEDS: ALPRAZolam 0.25 MG TABLET PO PRN ×2 (01:48→12:03)
[2018-06-29] MEDS: SODIUM CHLOR 0.45% + 20MEQ KCL 20 MEQ/1,000 ML BAG IV SCH ×2 (01:48→08:55)
[2018-06-29] MEDS: MoRPHine SULFATE 2 MG/ML CARP IV PRN ×3 (04:23→13:42)
[2018-06-29] MEDS ORDERED: LEVOTHYROXINE SODIUM 50 MCG TABLET PO SCH (06:30)
[2018-06-29] MEDS ORDERED: LIOTHYRONINE SODIUM 25 MCG TAB PO SCH (06:30)
[2018-06-29 08:18] LABS: BUN Creatinine Ratio 6.7 (10-20); Calcium 8.2 mg/dl (8.5-10.1); Creatinine Clr Calc Pharmacy 99.7 ml/min; Est GFR (African American) 129.9; Est GFR (Non-African American) 112.1
[2018-06-29] MEDS: HYOSCYAMINE SULFATE 0.375 MG TABCR PO SCH (08:45)
[2018-06-29] MEDS: BuPROPion SR 150 MG TABCR PO SCH (08:45)
[2018-06-29] MEDS: FAMOTIDINE 20 MG TAB PO SCH (08:45)
[2018-06-29] MEDS: PANCREAZE (LIPASE 10,500U) CAP PO SCH ×2 (08:46→13:01)
[2018-06-29] MEDS: VALACYCLOVIR HCL 500 MG TABLET PO SCH (08:46)
[2018-06-29] MEDS: HEPARIN SOD 5,000 UNIT/0.5 ML VIAL SQ SCH (08:48)
[2018-06-29] MEDS: INSULIN ASPART 100 UNITS/ML 3 ML PEN SC SCH ×3 (08:48→15:46)
[2018-06-29] MEDS: CHECK FENTANYL PATCH PLACEMENT SCH ×2 (08:56→15:36)
[2018-06-29] MEDS ORDERED: fentaNYL 25 MCG/HR TDSY TD SCH (09:00)
[2018-06-29] MEDS ORDERED: MULTIVITAMIN TAB PO SCH (09:00)
[2018-06-29] MEDS ORDERED: CALCIUM CARBONATE 1250MG TAB PO SCH (09:00)
[2018-06-29] MEDS ORDERED: fentaNYL 12 MCG/HR TDSY TD SCH (09:00)
[2018-06-29] MEDS ORDERED: FOLIC ACID 1 MG TAB PO SCH (09:00)
[2018-06-29] MEDS ORDERED: CHOLECALCIFEROL 1,000 UNITS TAB PO SCH (09:00)
[2018-06-29] MEDS ORDERED: NovoLIN-N (NPH) PER UNIT CHARGE SQ ONE ×2 (10:00→21:00)
--- NOTE | 2018-06-29 10:11 | Pharmacy Report ---
Pharmacy Glycemic Short Note 2 - Date of Service June 29, 2018 - Glycemic Short BSG Results (Last 24 hours): 06/28/18 06/28/18 06/28/18 09:54 10:44 11:42 Glucose POC Glucose 281 H 224 H 157 H 06/28/18 06/28/18 06/28/18 13:04 13:57 16:16 Glucose POC Glucose 168 H 120 H 112 H 06/28/18 06/29/18 06/29/18 21:28 07:24 08:03 Glucose 188 H POC Glucose 158 H 175 H OUTPATIENT ANTIDIABETIC REGIMEN: * Insulin Pump: CR 1:12, CF 1:70; See initial consult for basal rate * A1c 9.7% ASSESSMENT: * 57yo T1DM female with sub-adequate outpatient control per elevated A1c. Goal A1c likely closer to 7-8% based on age/co-morbidities. * Pt admitted with DKA on 06/27/18 and initiated on IV insulin infusion. Pt transitioned to Sq basal bolus insulin regimen on 06/28/18 when criteria to transition met. * BSGs have been well controlled with current orders. Anticipate DC in the next 24hrs. * Pt will need to resume her insulin pump for discharge. However, patient does not have any of her pump supplies with her (they were taken home on admission). Will bridge with shorter acting basal insulin (NPH) and continue NovoLog with meals. This will cover her until she gets home and can resume her pump. PLAN FOR INPATIENT GLYCEMIC CONTROL: * Basal insulin * NPH 14 units x 1 * Bolus insulin * NovoLog per scale ACHS or Q6hrs while NPO * Goal Range: Low 110 mg/dL - High 140 mg/dL * Correction Factor: 55 mg/dL/unit * Nutritional / Prandial insulin per carb ratio of 1 unit per 12 grams CHO consumed Plan for discharge: * Pt may resume her insulin pump at discharge. No need to connect it in house if patient is discharged before dinner time. Pt has enough NPH on board to cover her basal needs until bedtime. Pt may need to set a hold/reduced basal rate on her pump if she is discharged before dinner time today. * Pt to work with outpatient provider to adjust pump settings for improved glycemic control.
[2018-06-29 14:37] LABS: Basophils # (auto) 0.02 K/uL (0-0.2); Basophils % (auto) 0.2 %; Eosinophils # (auto) 0.02 K/uL (0-0.5); Eosinophils % (auto) 0.2 %; Hematocrit (blood only) 32.2 % (37-47); Immature Granulocytes # (auto) 0.04 K/uL (0.00-0.02); Immature Granulocytes % (auto) 0.3 %; Lymphocytes # (auto) 2.76 K/uL (1.2-3.4); Lymphocytes % (auto) 22.6 %; Mean Corpuscular Hgb Conc 34.2 g/dL (32-36); Mean Corpuscular Volume 101.3 fL (80-100); Mean Platelet Volume 9.6 fL (7.4-10.4); Monocytes # (auto) 0.89 K/uL (0.11-0.59); Monocytes % (auto) 7.3 %; Neutrophils # (auto) 8.49 K/uL (1.4-6.5); Neutrophils % (auto) 69.4 %; Platelet Count 245 K/uL (130-400); RDW Coefficient of Variation 12.6 % (11.5-14.5); RDW Standard Deviation 46.8 fL (36.4-46.3); Red Blood Count 3.18 M/uL (4.2-5.4); White Blood Count 12.22 K/uL (4.8-10.8)
[2018-06-29 15:06] LABS: BUN Creatinine Ratio 6.6 (10-20); Calcium 8.5 mg/dl (8.5-10.1); Creatinine Clr Calc Pharmacy 59.6 ml/min; Est GFR (Non-African American) 92.3; Potassium 3.8 mmol/L (3.5-5.1)
--- NOTE | 2018-06-29 15:20 | Discharge Summary ---
Date of Service June 29, 2018 Admission HPI Per Admitting Provider Majority of history obtained through chart review, discussion with ER staff and discussion with patient's daughter. Mrs. 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 Patient with insulin pump in place, states it has been working fine. She reports that her blood sugars have been high over the last few days, was >600 today prior to arrival. She also reports headache, nausea, vomiting, abdominal cramping and PO intolerance. No additional complaints at this time. Upon arrival to the Er she was afebrile, mildly tachycardic at 107bpm, BP and respiratory rate stable. Laboratory workup significant for neutrophil predominant leukocytosis with WBC= 25.23. pH=7.17, HCO3=8, PV=430, Lactate=3.4, UA 3+ glucose and 4+ ketones. CXR and CT abdomen unremarkable. Patient with poor IV access therefore a triple-lumen CVC was placed in the right IJ by ER attending . Started on insulin gtt and IVF. ER Course: Zofran 4mg IV, NSS x 2 liters, insulin gtt Admission Exam Per Admitting Provider General: patient agitated after central line placement, NAD, ill in appearance Skin: warm, dry, intact, no rashes or lesions HEENT: NC/AT, PERRL, EOMI, anicteric sclera, conjunctiva without injection, external ear normal to inspection and nontender, nares patent, dry mucus membranes, dentition intact, no oropharyngeal lesions, neck supple, trachea midline, no LAD, no thyromegaly, no JVD Heart: +S1/S2, regular, tachycardic, no m/r/g Lungs: equal air entry bilaterally, no rales/rhonchi/wheezes Abd: +BS, soft, NT/ND, no masses/organomegaly/ascites, insulin pump in LLQ Ext: warm, 2+ pulses in UE/LE bilaterally, no clubbing/cyanosis or edema Neuro: nonfocal, patient AA&O x 4, speech intact, no facial droop, moving all extremities on command with equal strength 5/5 Principal Diagnosis DKA Discharge Exam Constitutional WD/WN, vitals as above + thin Eyes PERRL, conjunctivae normal, anicteric sclerae ENMT external ear and nose normal, oropharynx normal Neck trachea midline, no thyromegaly Respiratory normal respiratory effort, lungs clear to auscultation Cardiovascular RRR, no murmur, no edema Gastrointestinal (Abdomen) normal bowel sounds, soft, nontender, no hepatosplenomegaly Musculoskeletal no cyanosis or clubbing, extremities motor strength 5/5 Skin no rashes, warm and dry Neurologic patellar DTR's 2+ bilat, sensation intact and PERRL, EOMI, accommodation nl, no face palsy, no dysarthria Psychiatric A+Ox3, euthymic affect Lymphatic no cervical or axillary lymphadenopathy Discharge Data Allergies Allergy/AdvReac Type Severity Reaction Status Date / Time No Known Allergies Allergy Verified 06/26/18 22:49 Consultations 06/26/18 23:59 ED Decision to Admit Stat 06/27/18 03:32 Consult Case Management - Discharge Planning Routine Consult Hand Crown Pouncer Routine Ordered Studies 06/26/18 22:46 CT abd pelvis IV con only Urgent 06/27/18 09:45 CT head/brain wo con Routine Hospital Course (1) DKA (diabetic ketoacidoses): Patient with history of procedure for necrotic pancreas, insulin-dependent diabetes with insulin pump in place. She follows regularly with endocrinology and last saw the ict educator on 09 June 2018. During that visit her basal insulin was increased by 5%, sensitivity changed from 65 to 70 and carb ratio changed from 1:9.5 to 1:12. A1C=9.9 on 09/25/17. Patient presenting now in DKA, she is AA&O, alert but agitated patient quickly improved with insulin infusion anion gap closed within 24 hours, no further acidosis Cr and electrolytes stable diet advanced sugars were ranging 190-250, she says her goal is actually high 200's she was given a dose of NPH in the morning on 06/29 by pharmacy she ate lunch well, no pain, no nausea she planned to resume her insulin pump as soon as she got home fortunately she already had close follow up scheduled with endocrinology this week no clear etiology for her DKA, she was vomiting a lot prior but could have been related to DKA no pneumonia, no UTI profound leukocytosis of 24k on admission but improved to 12k without antibiotics most likely etiology seems to be viral illness per patient and family she gets DKA once or twice a year (2) PUD (peptic ulcer disease): Patient with history of PUD. Is on Carafate and BID Pepcid -Pepcid 20mg IV BID (3) Hypothyroid: Patient on Synthroid continue on discharge (4) Elevated lactic acid level: Lactate = 3.4 on admission. resolved (5) Chronic pain: Patient with history of chronic pain, chronic narcotic use. Post- operative abdominal pain and chronic back pain. She follows with Orthopedics for her back pain. She has been recommended to pain management but does not wish to see them. She also fell on 04/23/18 and sustained a left humeral neck fracture therefore has some pain from that. She has osteoporosis and is on Reclast, Vitamin D and Calcium. To have Reclast in October -Continue Fentanyl patches -Morphine PRN Ppx - SCDs to bilateral Les Code - Full Total Time Total Time Spent Total Time Spent (In Minutes): 35 minutes Total Time Includes: Examination of the Patient, Discharge Planning, Medication Reconciliation, Communication With Other Providers (discussion with pharmacy) and Other (discussion with family) Discharge Plan Discharge Items Patient Disposition: Home - Self-Care Reason For Visit: DKA Discharge Diagnosis: DKA Condition: Good Discharge Goals: Decrease discomfort and Improve disease control Activity: Resume your previous activity Driving/Machine Use: No limitations Non-emergency contact: Primary Care Provider and Specialist Call non-emergency contact if: you have any medication questions, your symptoms worsen and you have a fever Follow-up/Referrals: Juan Carlos Sebastian MD [Primary Care Provider] - Diet: Carb Consistent or DM2 Addtl Provider Instructions: Medications: - INSULIN: resume pump when you get home, resume prior settings per endocrinology DKA: ketoacidosis resolved with insulin drip labs are stable, vitals stable no clear cause, no source of infection, all cultures negative continue to follow your diabetic diet keep close track of sugars over next several days certainly if they trend above 300 consistently, you should call endocrinology sooner Prescriptions: Continued bupropion HCl 150 mg tablet sustained-release 12 hr 150 mg PO BID RF: 0 atorvastatin 20 mg tablet 20 mg PO HS RF: 0 liothyronine 25 mcg tablet 12.5 mcg PO DAILY RF: 0 medroxyprogesterone 2.5 mg tablet 2.5 mg PO DAILY RF: 0 famotidine 40 mg tablet 40 mg PO BID RF: 0 valacyclovir 500 mg tablet 500 mg PO BID RF: 0 alprazolam 0.25 mg tablet 0.25 mg PO TID RF: 0 hyoscyamine sulfate 0.375 mg tablet extended release 12 hr 0.375 mg PO BID RF: 0 oxycodone-acetaminophen 10-325 mg tablet 1 tab PO QID PRN (Reason: Pain) RF: 0 Novolog U-100 Insulin aspart 100 unit/mL solution 1 dose subcut UD RF: 0 levothyroxine 50 mcg tablet 50 mcg PO DAILY RF: 0 folic acid 1 mg tablet 1 mg PO DAILY RF: 0 montelukast 10 mg tablet 10 mg PO DAILY RF: 0 fentanyl 25 mcg/hr patch 72 hour 25 mcg topical Q3D RF: 0 Premarin 0.3 mg tablet 0.3 mg PO DAILY RF: 0 fentanyl 12 mcg/hr patch 72 hour 12 mcg topical Q3D RF: 0 omeprazole-sodium bicarbonate 40-1.1 mg-gram capsule 1 tab PO BID RF: 0 multivitamin Tablet 1 tab PO DAILY RF: 0 Lantus U-100 Insulin 100 unit/mL Solution 12 unit SUBCUT HS PRN (Reason: Unknown) RF: 0 sucralfate [Carafate] 100 mg/mL Suspension 10 ml PO QID PRN (Reason: Gi Upset) RF: 0 ondansetron 8 mg Tablet,Disintegrating 8 mg PO Q6H PRN (Reason: Nausea) RF: 0 nystatin-triamcinolone 100,000-0.1 unit/gram-% Ointment 1 applic TOPICAL TID PRN (Reason: Skin Irritation) RF: 0 calcium carbonate [Calcium 600] 600 mg calcium (1,500 mg) Tablet 600 mg PO DAILY RF: 0 glucagon (human recombinant) 1 mg Recon Soln 1 dose subcut UD PRN (Reason: Hypoglycemia) RF: 0 lidocaine HCl [Lidocaine Viscous] 2 % Solution 2 tsp PO UD RF: 0 estradiol 0.01 % (0.1 mg/gram) Cream 1 g VAGINAL 2XWK PRN (Reason: Unknown) RF: 0 zoledronic whzp-xnnnfqig-ynmep 5 mg/100 mL Piggyback 5 mg IV UD RF: 0 cholecalciferol (vitamin D3) [Vitamin D3] 2,000 unit Capsule 2,000 unit PO DAILY RF: 0 Creon 12,000-38,000 -60,000 unit Capsule,Delayed Release(Dr/Ec) 3 cap PO UD RF: 0 Stand-Alone Forms: [facility] Discharge Orders: Discharge Order (Routine); Ordered 06/29/18 Ordered By: Familia Zavala Admission Data Admit Date/Time: 06/27/18 01:02 Attending Provider: Familia Zavala Admit Provider: Leny Morgan Primary Care Provider: Juan Carlos Sebastian Other Providers: Leny Morgan ; [place] Obrien Service: Medical Other Interventions: Discharge Summary Assessment (RN) Last Done: 06/29/18 15:40 DC Date/Time DO NOT enter until pt leaves facility: 06/29/18 16:12
[2018-06-29] MEDS ORDERED: OMEPRAZOLE PO SCH (21:00)
[2018-06-29] MEDS ORDERED: SODIUM BICARBONATE PO SCH (21:00)
== END 2018-06-29 16:12 | disposition home or self-care (01) | DRG 637 ==
LOC: ED 22:04 → 1E 06-27 01:02 → SUATTDRO 06-27 01:02 → 1E 06-27 02:37 → 4W 06-28 16:37

== ENCOUNTER 2020-02-15 01:04 | Inpatient (IN) ==
--- NOTE | 2020-02-15 01:52 | Emergency Department Note ---
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 Pardeep [Prempro]) 1 tab PO DAILY [facility] Stop: 03/16/20 04:59 Last Admin: 02/15/20 05:23 Dose: 1 tab Documented by: [id number] Non-Formulary Medication (Auiepe-Pxvsrnwa-Vevugzx [Creon]) 3 cap PO AC [facility] Stop: 03/16/20 05:29 Last Admin: 02/15/20 13:02 Dose: 3 cap Documented by: [id number] Admin: 02/15/20 07:31 Dose: 3 cap Documented by: [id number] Non-Formulary Medication (Omeprazole-Sodium Bicarbonate) 1 cap PO BID [facility] Stop: 03/16/20 04:59 Last Admin: 02/15/20 05:23 Dose: 1 cap Documented by: [id number] Oxycodone/Acetaminophen (Oxycodone/Acetaminophen 10-325 Tab) 1 tab PO Q6H PRN PRN Reason: Pain Stop: 02/29/20 04:53 Last Admin: 02/15/20 08:59 Dose: 1 tab Documented by: [id number] Valacyclovir HCl (Valacyclovir Hcl 500 Mg Tablet) 500 mg PO BID [facility] Stop: 02/17/20 04:59 Last Admin: 02/15/20 05:37 Dose: 500 mg Documented by: [id number] Discharge Plan Visit Data Chief Complaint: Mental Health Evaluation Stated Complaint: [facility] ED Provider: Isak Valladares Discharge Problem: Paranoid delusion, Jolly Patient Disposition: Admitted As Inpatient Discharge Instructions Interventions: ED Discharge Assessment Last Done: 02/15/20 10:35
[2020-02-15 01:53] LABS: Appearance Urine Clear (Clear); Bilirubin Urine Negative (Negative); Blood Urine Negative (Negative); Color Urine Yellow; Glucose Urine UA 3+ (Negative); Ketones Urine 2+ (Negative); Leukocyte Esterase Urine Negative (Negative); Nitrite Urine Negative (Negative); Protein Urine Negative (Negative); Specific Gravity Urine 1.034 (1.000-1.030); Urobilinogen Urine Negative (Negative)
[2020-02-15] MEDS ORDERED: GI COCKTAIL ED USE PO ONE ×2 (01:56→10:13)
[2020-02-15 02:02] LABS: Basophils # (auto) 0.04 K/uL (0-0.2); Basophils % (auto) 0.6 %; Eosinophils % (auto) 1.5 %; Hematocrit (blood only) 34.7 % (37-47); Hemoglobin 11.6 g/dL (12.0-16.0); Immature Granulocytes # (auto) 0.01 K/uL (0.00-0.02); Immature Granulocytes % (auto) 0.2 %; Lymphocytes # (auto) 2.32 K/uL (1.2-3.4); Lymphocytes % (auto) 35.2 %; Mean Corpuscular Hemoglobin 34.7 pg (25-34); Mean Corpuscular Hgb Conc 33.4 g/dL (32-36); Mean Corpuscular Volume 103.9 fL (80-100); Mean Platelet Volume 9.9 fL (7.4-10.4); Monocytes # (auto) 0.62 K/uL (0.11-0.59); Monocytes % (auto) 9.4 %; Neutrophils % (auto) 53.1 %; Platelet Count 443 K/uL (130-400); RDW Coefficient of Variation 12.7 % (11.5-14.5); RDW Standard Deviation 48.2 fL (36.4-46.3); Red Blood Count 3.34 M/uL (4.2-5.4); White Blood Count 6.59 K/uL (4.8-10.8)
[2020-02-15 02:11] LABS: Amphetamines+Metham, Urine Neg (Neg); Barbiturates, Urine Neg (Neg); Benzodiazepine, Urine Pos (Neg); Cocaine, Urine Neg (Neg); MDMA (Ecstacy), Urine Pos (Neg); Methadone, Urine Neg (Neg); Opiate, Urine Neg (Neg); Phencyclidine, Urine Neg (Neg)
[2020-02-15 02:54] LABS: Acetaminophen < 2 ug/ml (10-30)
[2020-02-15 02:55] LABS: Salicylate < 1.7 mg/dl (2.8-20)
[2020-02-15 02:58] LABS: Albumin Globulin Ratio 1.1 (0.9-2); Albumin Level 4.1 gm/dl (3.4-5.0); BUN Creatinine Ratio 14.3 (10-20); Bilirubin,Total 0.5 mg/dl (0.2-1); Calcium 9.2 mg/dl (8.5-10.1); Creatinine Clr Calc Pharmacy 56.4 ml/min; Est GFR (African American) 98.8; Est GFR (Non-African American) 85.3; Globulin 3.9 gm/dl (2.5-4.0); Potassium 3.6 mmol/L (3.5-5.1); T4 Free Thyroxine 0.75 ng/dl (0.8-1.6); Thyroid Stimulating Hormone 1.15 uIu/ml (0.300-4.500)
[2020-02-15 03:26] LABS: Beta-Hydroxybutyrate 5.2 mg/dl (0.2-2.81)
[2020-02-15] MEDS ORDERED: ALPRAZolam 0.25 MG TABLET PO PRN (04:54)
[2020-02-15] MEDS ORDERED: LANTUS PER UNIT CHARGE SQ PRN (04:54)
[2020-02-15] MEDS ORDERED: oxyCODONE/ACETAMINOPHEN 10-325 TAB PO PRN (04:54)
[2020-02-15] MEDS ORDERED: FAMOTIDINE 20 MG TAB PO SCH (05:00)
[2020-02-15] MEDS ORDERED: MONTELUKAST SODIUM 10 MG TABLET PO SCH (05:00)
[2020-02-15] MEDS ORDERED: FOLIC ACID 1 MG TAB PO SCH (05:00)
[2020-02-15] MEDS ORDERED: MULTIVITAMIN TAB PO SCH (05:00)
[2020-02-15] MEDS ORDERED: LIOTHYRONINE SODIUM 25 MCG TAB PO SCH (05:00)
[2020-02-15] MEDS ORDERED: LEVOTHYROXINE SODIUM 50 MCG TABLET PO SCH (05:00)
[2020-02-15] MEDS ORDERED: valACYclovir HCL 500 MG TABLET PO SCH (05:00)
[2020-02-15] MEDS: CONJ ESTROG MEDROXYPROGEST ACE PO SCH ×2 (05:23→05:25)
[2020-02-15] MEDS: SODIUM BICARBONATE PO SCH ×2 (05:23→05:24)
[2020-02-15] MEDS: NON-FORMULARY MEDICATION (Calcium Carbonate [Calcium 600] 600 mg calcium (1,500 mg) tablet PO SCH ×2 (05:23→05:25)
[2020-02-15] MEDS: OMEPRAZOLE PO SCH ×2 (05:23→05:24)
[2020-02-15] MEDS: DULoxetine HCL 20 MG CAP PO SCH (05:29)
[2020-02-15] MEDS: buPROPion SR 150 MG TABCR PO SCH ×2 (05:29→20:41)
[2020-02-15] MEDS: fentaNYL 25 MCG/HR TDSY TD SCH (05:45)
[2020-02-15] MEDS: fentaNYL 12 MCG/HR TDSY TD SCH (05:46)
[2020-02-15] MEDS ORDERED: INSULIN HUMAN REGULAR SC STA ×2 (05:48→05:56)
[2020-02-15] MEDS ORDERED: NovoLIN-R INSULIN PER UNIT CHARGE ONE ×2 (06:02→07:46)
--- NOTE | 2020-02-15 06:48 | CT Scan Report ---
CT head/brain wo con CLINICAL HISTORY: acute paranoid delusions CHANGE IN MENTAL STATUS COMPARISON STUDY: 06/27/2018 TECHNIQUE: Axial CT of the brain is performed from the vertex to the skull base. IV contrast was not administered for this examination. A dose lowering technique was utilized adhering to the principles of ALARA. CT DOSE: 1228.53 mGy.cm FINDINGS: No intra or extra-axial mass lesions are visualized. There is no CT evidence of acute cortical infarc tion. There is no evidence of midline shift. There is no acute hemorrhage. No calvarial fractures ar e visualized. There are minor white matter hypodensities likely on a small vessel basis. There is no evidence of pathologic ventricular dilatation. There is no evidence of acute sinusitis IMPRESSION: No acute intracranial findings ACT 112: Negative or not required by law. Electronically signed by: Grant Cheek M.D. 02/15/2020 6:47 AM
--- NOTE | 2020-02-15 06:52 | Emergency Department Note ---
ED Visit Note Received patient in sign out. History and physical verified by me. Pt awaiting evaluation by Venkata Plascencia. Patient given insulin for her sugar here in the emergency department and was subsequently admitted to [facility] .
--- NOTE | 2020-02-15 07:28 | XRay Report ---
XR chest 1V portable CLINICAL HISTORY: Acute change in mental status COMPARISON STUDY: No previous studies for comparison. FINDINGS: The cardiac and mediastinal contours are normal. There is no evidence of focal pulmonary co nsolidation. There is no evidence of failure. No pleural effusions are visualized.[ IMPRESSION: No active disease in the chest. ACT 112: Negative or not required by law. Electronically signed by: Grant Cheek M.D. 02/15/2020 7:27 AM
[2020-02-15] MEDS: CHECK fentaNYL PATCH PLACEMENT SCH ×3 (07:32→16:43)
[2020-02-15] MEDS ORDERED: HYOSCYAMINE SULFATE 0.375 MG TABCR PO SCH (09:00)
[2020-02-15] MEDS ORDERED: INSULIN ASPART PER UNIT SQ SCH (09:00)
[2020-02-15] MEDS ORDERED: ACETAMINOPHEN 325 MG TAB PO PRN (10:10)
[2020-02-15] MEDS ORDERED: BISMUTH SUBSALICYLATE LIQD 236 ML PO PRN (10:10)
[2020-02-15] MEDS ORDERED: SODIUM CHLORIDE 0.65% NA SOLN 45 ML (OCEAN) PRN (10:10)
[2020-02-15] MEDS ORDERED: MAGNESIUM HYDROXIDE SUSP 30 ML UDC PO PRN (10:10)
[2020-02-15] MEDS ORDERED: hydrOXYzine HCl 25 MG TAB PO PRN ×2 (10:10)
--- NOTE | 2020-02-15 11:00 | History & Physical ---
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 Urine MDMA U OH-Alprazolam Confrm U Benzodiazepines Scrn 7-Amino Clonazepam Ur Nordiazepam Confirm U OH-ethylflurazepam U Lorazepam Cnf GC/MS U Oxazepam Confm GC/MS Ur Temazepam Confirm U OH-Triazolam Confirm U OH-Midazolam Confirm Ur Cocaine Metabolite U Marijuana (THC) Screen Drug Screen Comment Ethyl Alcohol mg/dL SARS-CoV-2 Ag (Rapid) 02/15/20 02/15/20 02/15/20 01:46 04:48 07:22 WBC RBC Hgb Hct MCV MCH MCHC RDW Std Deviation RDW Coeff of [place] Plt Count MPV Immature Gran % (Auto) Neut % (Auto) Lymph % (Auto) Roberts % (Auto) Eos % (Auto) Baso % (Auto) Neut # (Auto) Lymph # (Auto) Roberts # (Auto) Eos # (Auto) Baso # (Auto) Immature Gran # (Auto) Sodium Potassium Chloride Carbon Dioxide Anion Gap BUN Creatinine Est Cr Clr Drug Dosing Est GFR ( Amer) Est GFR (Non-Af Amer) BUN/Creatinine Ratio Glucose POC Glucose 346 H* 291 H Calcium Total Bilirubin AST ALT Alkaline Phosphatase Total Protein Albumin Globulin Albumin/Globulin Ratio Beta-Hydroxybutyric Acd TSH Free T4 Urine Color Urine Appearance Urine pH Ur Specific [place] Urine Protein Urine Glucose (UA) Urine Ketones Urine Blood Urine Nitrite Urine Bilirubin Urine Urobilinogen Ur Leukocyte Esterase Salicylates Urine Opiates Screen Ur Methadone, Qual Acetaminophen Urine Barbiturates Ur Phencyclidine (PCP) U Amphetamin/Meth Scrn Urine MDEA MDMA (Ecstasy) Screen MDMA Urine MDMA U OH-Alprazolam Confrm U Benzodiazepines Scrn 7-Amino Clonazepam Ur Nordiazepam Confirm U OH-ethylflurazepam U Lorazepam Cnf GC/MS U Oxazepam Confm GC/MS Ur Temazepam Confirm U OH-Triazolam Confirm U OH-Midazolam Confirm Ur Cocaine Metabolite U Marijuana (THC) Screen Drug Screen Comment Ethyl Alcohol mg/dL < 3.0 SARS-CoV-2 Ag (Rapid) 02/15/20 02/15/20 08:48 Unknown WBC RBC Hgb Hct MCV MCH MCHC RDW Std Deviation RDW Coeff of [place] Plt Count MPV Immature Gran % (Auto) Neut % (Auto) Lymph % (Auto) Roberts % (Auto) Eos % (Auto) Baso % (Auto) Neut # (Auto) Lymph # (Auto) Roberts # (Auto) Eos # (Auto) Baso # (Auto) Immature Gran # (Auto) Sodium Potassium Chloride Carbon Dioxide Anion Gap BUN Creatinine Est Cr Clr Drug Dosing Est GFR ( Amer) Est GFR (Non-Af Amer) BUN/Creatinine Ratio Glucose POC Glucose 255 H Calcium Total Bilirubin AST ALT Alkaline Phosphatase Total Protein Albumin Globulin Albumin/Globulin Ratio Beta-Hydroxybutyric Acd TSH Free T4 Urine Color Urine Appearance Urine pH Ur Specific [place] Urine Protein Urine Glucose (UA) Urine Ketones Urine Blood Urine Nitrite Urine Bilirubin Urine Urobilinogen Ur Leukocyte Esterase Salicylates Urine Opiates Screen Ur Methadone, Qual Acetaminophen Urine Barbiturates Ur Phencyclidine (PCP) U Amphetamin/Meth Scrn Urine MDEA MDMA (Ecstasy) Screen MDMA Urine MDMA U [place]-Alprazolam Confrm U Benzodiazepines Scrn 7-Amino Clonazepam Ur Nordiazepam Confirm U OH-ethylflurazepam U Lorazepam Cnf GC/MS U Oxazepam Confm GC/MS Ur Temazepam Confirm U OH-Triazolam Confirm U OH-Midazolam Confirm Ur Cocaine Metabolite U Marijuana (THC) Screen Drug Screen Comment Ethyl Alcohol mg/dL SARS-CoV-2 Ag (Rapid) Negative Current Inpatient Medications Current Inpatient Medications: Current Inpatient Medications Acetaminophen (Acetaminophen 325 Mg Tab) 650 mg PO Q4H PRN PRN Reason: Headache or Minor Fever Stop: 03/16/20 10:09 Al Hydrox/Mg Hydrox/Simethicone (Aluminum/Magnesium Susp 30 Ml Udc) 30 ml PO Q4H PRN PRN Reason: GI Upset Stop: 03/16/20 10:09 Alprazolam (Alprazolam 0.25 Mg Tablet) 0.25 mg PO TID PRN PRN Reason: anxiety Stop: 03/16/20 04:53 Last Admin: 02/15/20 05:30 Dose: 0.25 mg Documented by: Atorvastatin Calcium (Atorvastatin 20 Mg Tab) 20 mg PO HS DAGOBERTO Stop: 03/16/20 20:59 Bismuth Subsalicylate (Bismuth Subsalicylate Liqd 236 Ml) 15 ml PO PRN PRN PRN Reason: Loose Stool Stop: 03/16/20 10:09 Bupropion HCl (Bupropion Sr 150 Mg Tabcr) 150 mg PO BID DAGOBERTO Stop: 03/16/20 04:59 Last Admin: 02/15/20 05:29 Dose: 150 mg Documented by: Duloxetine HCl (Duloxetine Hcl 20 Mg Cap) 20 mg PO QAM DAGOBERTO Stop: 03/16/20 04:59 Last Admin: 02/15/20 05:29 Dose: 20 mg Documented by: Famotidine (Famotidine 20 Mg Tab) 40 mg PO BID DAGOBERTO Stop: 03/16/20 04:59 Last Admin: 02/15/20 05:31 Dose: 20 mg Documented by: Fentanyl (Fentanyl 12 Mcg/Hr Tdsy) 12 mcg TD Q3D DAGOBERTO Stop: 02/29/20 04:59 Last Admin: 02/15/20 05:46 Dose: 12 mcg Documented by: Fentanyl (Fentanyl 25 Mcg/Hr Tdsy) 25 mcg TD Q3D [facility] Stop: 02/29/20 04:59 Last Admin: 02/15/20 05:45 Dose: 25 mcg Documented by: Folic Acid (Folic Acid 1 Mg Tab) 1 mg PO QAM [facility] Stop: 03/16/20 04:59 Last Admin: 02/15/20 05:29 Dose: 1 mg Documented by: Hydroxyzine HCl (Hydroxyzine Hcl 25 Mg Tab) 50 mg PO HSZ PRN PRN Reason: Insomnia Stop: 03/16/20 10:09 Hydroxyzine HCl (Hydroxyzine Hcl 25 Mg Tab) 25 mg PO Q4H PRN PRN Reason: Anxiety Stop: 03/16/20 10:09 Hyoscyamine (Hyoscyamine Sulfate 0.375 Mg Tabcr) 0.375 mg PO BID [facility] Stop: 03/16/20 08:59 Last Admin: 02/15/20 05:38 Dose: 0.375 mg Documented by: Insulin Aspart (Insulin Aspart Per Unit) 50 units SQ DAILY [facility] Stop: 03/16/20 08:59 Last Admin: 02/15/20 07:49 Dose: Not Given Documented by: Insulin Glargine (Lantus Per Unit Charge) 12 units SQ HS PRN PRN Reason: Unknown Stop: 03/16/20 04:53 Insulin Human Regular (Insulin Human Regular) 2 units SC ACHS [facility] Stop: 03/16/20 11:29 Last Admin: 02/15/20 07:58 Dose: 2 units Documented by: Levothyroxine Sodium (Levothyroxine Sodium 50 Mcg Tablet) 50 mcg PO QAM [facility] Stop: 03/16/20 04:59 Last Admin: 02/15/20 05:30 Dose: 50 mcg Documented by: Liothyronine Sodium (Liothyronine Sodium 25 Mcg Tab) 12.5 mcg PO QAM [facility] Stop: 03/16/20 04:59 Last Admin: 02/15/20 05:27 Dose: 12.5 mcg Documented by: Magnesium Hydroxide (Magnesium Hydroxide Susp 30 Ml Udc) 30 ml PO DAILY PRN PRN Reason: Constipation Stop: 03/16/20 10:09 Miscellaneous (Fentanyl Patch Remove & Waste) 1 ea N/A Q3D [facility] Stop: 03/16/20 04:59 Last Admin: 02/15/20 06:00 Dose: 1 ea Documented by: Miscellaneous (Check Fentanyl Patch Placement) 1 ea N/A QS [facility] Stop: 03/16/20 07:59 Last Admin: 02/15/20 07:32 Dose: 1 ea Documented by: Montelukast Sodium (Montelukast Sodium 10 Mg Tablet) 10 mg PO QAM [facility] Stop: 03/16/20 04:59 Last Admin: 02/15/20 05:31 Dose: 10 mg Documented by: Multivitamins (Multivitamin Tab) 1 tab PO QAM [facility] Stop: 03/16/20 04:59 Last Admin: 02/15/20 05:27 Dose: 1 tab Documented by: Non-Formulary Medication (Calcium Carbonate [Calcium 600]) 600 mg PO [facility] Stop: 03/16/20 04:59 Last Admin: 02/15/20 05:23 Dose: Not Given Documented by: Non-Formulary Medication (Cholecalciferol (Vitamin D3) [Vitamin D3]) 2,000 units PO [facility] Stop: 03/16/20 04:59 Last Admin: 02/15/20 05:23 Dose: 2,000 units Documented by: Non-Formulary Medication (Conj Estrog-Medroxyprogest Pardeep [Prempro]) 1 tab PO DAILY [facility] Stop: 03/16/20 04:59 Last Admin: 02/15/20 05:23 Dose: 1 tab Documented by: Non-Formulary Medication (Zlswqu-Clwuijkd-Xzavzsn [Creon]) 3 cap PO AC [facility] Stop: 03/16/20 05:29 Last Admin: 02/15/20 07:31 Dose: 3 cap Documented by: Non-Formulary Medication (Omeprazole-Sodium Bicarbonate) 1 cap PO BID [facility] Stop: 03/16/20 04:59 Last Admin: 02/15/20 05:23 Dose: 1 cap Documented by: Oxycodone/Acetaminophen (Oxycodone/Acetaminophen 10-325 Tab) 1 tab PO Q6H PRN PRN Reason: Pain Stop: 02/29/20 04:53 Last Admin: 02/15/20 08:59 Dose: 1 tab Documented by: Sodium Chloride (Sodium Chloride 0.65% Na Soln 45 Ml ([place])) 1 - 2 sprays NA PRN PRN PRN Reason: Nasal Dryness/Congestion Stop: 03/16/20 10:09 Valacyclovir HCl (Valacyclovir Hcl 500 Mg Tablet) 500 mg PO BID DAGOBERTO Stop: 02/17/20 04:59 Last Admin: 02/15/20 05:37 Dose: 500 mg Documented by:
--- NOTE | 2020-02-15 11:06 | Electrocardiogram Report ---
Test Reason : Blood Pressure : / mmHG Vent. Rate : 102 BPM Atrial Rate : 102 BPM P-R Int : 154 ms QRS Dur : 078 ms QT Int : 344 ms P-R-T Axes : 075 065 036 degrees QTc Int : 448 ms Sinus tachycardia Possible Left atrial enlargement Borderline ECG When compared with ECG of 26-JUN-2018 22:36, No significant change was found Confirmed by Ferny Carlin ([id number]) on 02/15/2020 11:05:33 AM Referred By: REFERRED SELF Confirmed By:Jonathan Carlin
[2020-02-15] MEDS ORDERED: PHARMACY GLYCEMIC MGMT CONSULT PRN (11:08)
[2020-02-15] MEDS ORDERED: INSULIN HUMAN REGULAR SC SCH (11:30)
[2020-02-15] MEDS ORDERED: GLUCAGON FOR INJ 1 MG VIAL IM PRN (11:45)
[2020-02-15] MEDS ORDERED: GLUCOSE 10 TABS/TUBE PO PRN (11:45)
[2020-02-15] MEDS ORDERED: INSULIN GLARGINE SOLOSTAR 100 UNITS/ML 3 ML PEN SC ONE (11:45)
[2020-02-15] MEDS ORDERED: CARBOHYDRATES FOR HYPOGLYCEMIA PO PRN (11:45)
[2020-02-15] MEDS ORDERED: DEXTROSE 50% 50 ML SYRINGE IV PRN (11:45)
[2020-02-15] MEDS ORDERED: GLUCOSE 40% GEL 15 GM TUBE PO PRN (11:45)
--- NOTE | 2020-02-15 12:03 | Pharmacy Report ---
Pharmacy Glycemic Short Note 2 - Date of Service February 15, 2020 - Glycemic Short BSG Results (Last 24 hours): 02/15/20 02/15/20 02/15/20 01:46 04:48 07:22 Glucose 370 H* POC Glucose 346 H* 291 H 02/15/20 08:48 Glucose POC Glucose 255 H OUTPATIENT ANTIDIABETIC REGIMEN: * Insulin pump (novolog) - basal 15.5 units/day; CF of 70 ASSESSMENT: * 59 year old female admitted to inpatient psychiatric unit after presenting with worsening depression. Type 1 diabetic on insulin pump at home. BSGs on arrival elevated in 300s - given insulin bolus x 2 doses in ED, trending down to 255 mg/dL * Taken off insulin pump this AM by nursing staff. Pharmacy consulted to help with glycemic assistance. Spoke with RN and pump disconnected only about ~15 mins ago, plan to keep patient off pump and utilize basal/bolus insulin * Reviewed pump settings with patient, however she was not able to tell me settings since she did not have her pump with her. She states that she does see [facility] for DM management so whatever they have as her settings is true * Verified with outpt notes her total basal is 15.5 units/day and CF of 70. Appears patient has been here on other admissions. Plan to utilize similar insulin doses. * Patient states she likes to keep her BSGs 200-250s as she gets nervous for drops in BSG level overnight. Plan to target higher goal range of 120-160 with novolog dosing PLAN FOR INPATIENT GLYCEMIC CONTROL: * Hold outpatient oral diabetes medications * Basal insulin * Lantus 15 x 1 now * Bolus insulin * NovoLog per scale ACHS or Q6hrs while NPO * Goal Range: Low 120 mg/dL - High 160 mg/dL * Correction Factor: 55 mg/dL/unit * Nutritional / Prandial insulin per carb ratio of 1 unit per 12 grams CHO consumed PLAN FOR DISCHARGE: * Could likely resume insulin pump on discharge as long as no contraindications exist. Would continue care with [facility] and defer adjustments in insulin to them.
[2020-02-15] MEDS: INSULIN ASPART 100 UNITS/ML 3 ML PEN SC SCH ×3 (13:04→21:01)
[2020-02-15] MEDS ORDERED: PANCREAZE (LIPASE 10,500U) CAP PO PRN (14:56)
[2020-02-15] MEDS: ALPRAZolam 0.25 MG TABLET PO PRN (16:15)
[2020-02-15] MEDS: [UNRECOGNIZED DRUG - OTHER] SCH (17:26)
[2020-02-15] MEDS ORDERED: PANCREAZE (LIPASE 10,500U) CAP PO SCH (17:45)
[2020-02-15] MEDS: HYOSCYAMINE SULFATE 0.375 MG TABCR PO SCH (20:33)
[2020-02-15] MEDS: SODIUM BICARBONATE SCH (20:34)
[2020-02-15] MEDS: OMEPRAZOLE SCH (20:34)
[2020-02-15] MEDS: FAMOTIDINE 40 MG TABLET PO SCH (20:37)
[2020-02-15] MEDS: valACYclovir HCL 500 MG TABLET PO SCH (20:37)
[2020-02-15] MEDS: ATORVASTATIN 20 MG TAB PO SCH (20:39)
[2020-02-15] MEDS: MONTELUKAST SODIUM 10 MG TABLET PO SCH (20:40)
[2020-02-15] MEDS: oxyCODONE/ACETAMINOPHEN 10-325 TAB PO PRN (20:48)
[2020-02-15] MEDS ORDERED: ATORVASTATIN 20 MG TAB PO SCH (21:00)
[2020-02-15] MEDS ORDERED: PANTOprazole 40 MG TAB PO SCH (21:00)
[2020-02-16] MEDS: ALUMINUM/MAGNESIUM SUSP 30 ML UDC PO PRN (04:53)
[2020-02-16] MEDS: CHECK fentaNYL PATCH PLACEMENT SCH ×6 (05:00→17:23)
[2020-02-16] MEDS: ALPRAZolam 0.25 MG TABLET PO PRN (05:26)
[2020-02-16] MEDS: LIOTHYRONINE SODIUM 25 MCG TAB PO SCH (07:53)
[2020-02-16] MEDS: LEVOTHYROXINE SODIUM 50 MCG TABLET PO SCH (07:54)
[2020-02-16] MEDS: DULoxetine HCL 20 MG CAP PO SCH ×2 (07:55→11:41)
[2020-02-16] MEDS: HYOSCYAMINE SULFATE 0.375 MG TABCR PO SCH ×2 (07:55→21:20)
[2020-02-16] MEDS: FOLIC ACID 1 MG TAB PO SCH (07:55)
[2020-02-16] MEDS: CALCIUM 600MG + VIT D 400 IU TAB PO SCH (07:55)
[2020-02-16] MEDS: MULTIVITAMIN TAB PO SCH (07:56)
[2020-02-16] MEDS: valACYclovir HCL 500 MG TABLET PO SCH ×2 (07:59→21:21)
[2020-02-16] MEDS: FAMOTIDINE 40 MG TABLET PO SCH ×2 (07:59→21:20)
[2020-02-16] MEDS: buPROPion SR 150 MG TABCR PO SCH (08:00)
[2020-02-16] MEDS: CHOLECALCIFEROL 1,000 UNITS 25 MCG TAB PO SCH (08:00)
--- NOTE | 2020-02-16 08:29 | Psychiatric Progress Note ---
Date of Service February 16, 2020 Impression / Recommendations Impression 59-year-old female admitted involuntarily for inpatient psychiatric treatment on 02/15/2020 after presenting to the ED with worsening depression and homicidality toward . Family reports increased concern related to the patient's behavior, especially as she has been refusing mental health treatment. It was reported that the family has noticed changes in the patient's mood and cognition, but recent acute event is what led to their increased concern. It was reported that patient had assembled several items in a bag, reportedly to prepare herself to attack or leave her if necessary, as she states she was feeling unsafe. The patient had shown this bag to her , which included an axe. Family became alarmed by this and suggested inpatient psychiatric treatment. Since patient was unwilling to pursue this voluntarily, she was admitted as a 302. A family meeting is scheduled with her and daughter, and she has agreed to a retrial of duloxetine in place of bupropion to target anxiety, mood, and chronic pain. We need to gather collateral information from family and patient's PCP to better understand her complex course/interplay of psychological and medical issues. At this time, the patient is denying both suicidal and homicidal ideation, but is reporting high anxiety and demonstrating moderate cognitive impairment. We have continued her narcotic pain medications while awaiting input from her PCP. Cognitive deficits could be related to multiple factors including depression/anxiety/stress, high-dose opiates and daily benzodiazepine use, hearing deficit, episodic hyperglycemia/hypoglycemia, or a primary dementing process. At this time, inpatient psychiatric treatment is medically necessary due to patient being at acute risk of harm to self and others without adequate mitigation of risk factors and appropriate safety planning. (1) Homicidal ideation: 02/14 - Admitted to a locked inpatient behavioral health unit, on q15 minute safety checks - Encourage medication initiation/adjustments as indicated - Encourage participation in group and recreational therapies - Gather collateral information from outpatient providers - Suggest family meeting to involve outpatient supports in safety planning - Arrange appropriate aftercare 02/15 - Family meeting with and daughter. Patient denying HI, but there clearly complex family dynamics. (2) Depression: 02/14 - Will continue current medication regimen until collateral information can be obtained from patient's PCP or family members. - Pt is not presently interested in involving her family in her treatment. However, it seems that information from them would be crucial in order to fully understanding the circumstances leading to her admission and to develop an adequate safety/discharge plan. - Encourage family meeting with daughter/ to discuss each republican's concerns - Consider referral for outpatient psychiatry services - PCP has recommended this; however, patient has historically declined - Coordinate with patient's outpatient therapist - Encourage participation in group and recreational programming, assist with development of healthy and effective coping strategies 02/15 - Patient's pharmacy was contacted and clarified that patient has not filled duloxetine in >1 year, patient states she is not taking it, but PCP notes indicate that she is. Recommend retrial of this medication, as per records she was only ever on 20 mg daily, likely a subtherapeutic dose. She agreed, and will start 20 mg daily with titration to an effective dose. - Discontinue bupropion as can exacerbate anxiety and want to limit polypharmacy and use one agent that can target mood, anxiety and pain (duloxetine). -Recommend referral for outpatient psychiatrist, possibly through [facility] pain clinic. (3) Anxiety: 02/15 - Resume SNRI as above. Continue alprazolam but recommend slow taper off benzodiazepines given high dose opiates, cognitive impairment, advancing age, and high risk of negative outcomes. (4) Chronic pain syndrome: 02/14 - Pt has been on chronic opioid therapy for significant post-prandial pain: fentanyl in addition to prn oxycodone - PCP documentation reviewed - patient has declined regular recommendation from PCP for pain management referral - Confirming outpatient medications with patient's pharmacy - PDMP queried - Will coordinate care with the patient's PCP regarding pain medication regimen - regimen is complex with potentially dangerous combinations given use of opiates and benzodiazepines, but reports also indicate patient has not tolerated attempts to taper her pain medication regimen in the past. - Will request dietitian consultation due to patient's need for more frequent small meals (5) Cognitive change: 02/14 - Per patient, family has been reporting concern for cognitive decline. We reviewed that there may be numerous factors to explain this. These include: cognitive changes related to depression/anxiety/stress, mental status changes related to opiate/benzodiazepine medication regimen, hearing deficits, episodic hyperglycemia/hypoglycemia, primary dementing process, or normal cognitive changes related to advancing age, among other possibilities. - Cognitive functioning will likely need to be monitoring over time. MoCA completed today, and can be used as an initial value for future comparisons. - MoCA assessment completed - pt scoring /30, deficits observed specifically in the areas of visuospatial/executive functioning, serial 7's subtraction, language/repetition, abstraction, and delayed recall. - Visuospatial/executive - /5: pt struggled significant to copy the cube drawing, missing 1 point. Contour and numbers on the clock are roughly appropriate, however, patient ian a straight line from the number 11 to the number 2 when trying to indicate the time "10 after 11", again missing 1 point. - Attention - /6 - (Serial 7 Subtraction): pt struggled significantly with this task as well. Given first answer of "103", second answer of "93", and then being unable to complete subsequent subtractions. Pt frequently requested to use pen and paper, and was observed to be writing out subtractions on the palm of her hand. - Language - 2/3: pt had word substitution/deletion with the first sentence repetition task. She was able to come up with 16 words for fluency task - Abstraction - /: train-bicycle both have "wheels" and "seat", pt was able to recognize that watch-rule have numbers and are used to measure. - Delayed Recall - 03/22: Pt able to recall 1 word without clues, 1 word with category clues and 3 words with multiple choice clues. 02/15 - Given cognitive impairment, recommend she not drive until off sedating/impairing medications and demonstrates improved cognition. Will provide with [employer] information (available at [employer]) and submit mandated [place] [employer] form. (6) Type 1 diabetes mellitus: 02/14 - Pt utilizes insulin pump when at home, removed here due to protocol for inpatient psychiatric admission - Glycemic pharmacy consulted for assistance with managing blood sugar during admission - appreciate their involvement and recommendations (7) Hyperlipidemia: - Continue home dose of atorvastatin 20mg qHS Risk Factors Assessment Male: No : Yes Health Problems: Yes Mental Health Diagnoses: Yes Substance Use Disorders: Yes (chronic opioid use ) Previous Attempt: No Family History of Suicide: No Previous Psychiatric Hospitalization: No Hopelessness: No Smoker: No Protective Factors Assessment : Yes Responsible for Young Children: No Employed: No Supportive Family: No (per patient's report) Good Rapport with Provider: Yes (though resistant to follow recommendations suggested) Interval History Identifying Information JENNIFER ADAMS is a 59-year-old F who currently lives in [place], [place] with her and daughter. Patient has a history of depression/anxiety, and was admitted on 02/15/20 10:10 on a 302 involuntary commitment for worsening depression, and homicidal statements and behavior toward her . Chief Complaint "Dread talking with family". Review of Systems Sleep Information Total Hours of Sleep: 5.25 Meal Information Percent Meal Consumed - Breakfast: 100 Percent Meal Consumed - Lunch: 5 Subjective Subjective Patient was seen & assessed and interval progress reviewed with nursing and social work. Staff report she has a meeting with her daughter and today. She told staff that her family told her that she would lose her family if her behavior didn't change. She scored a 19/30 on the MOCA, and family endorsed concerns about her cognition. She has been advised to get hearing aides, but her has refused to pay for them. She is reporting frequent anxiety and getting alprazolam twice daily. On my assessment today, she reports anxiety about her family meeting, stating that the incident with the [place] that led to her hospitalization was triggered by her daughter threatening to take her daughter (the patient's granddaughter) and move out of the patient's home if she did not go get "checked out." She states her family has expressed concerns that she "is changing, repeating things, saying things that do not make sense." They think that she has dementia, and were concerned when she was considering medical marijuana. She reviews her medical problems at length, including handwritten list of all of her previous surgeries and procedures. She states she was told she would have lifelong abdominal pain related to eating, and her understanding is that it is caused by scarring in her abdomen. She also reports chronic constipation due to her opiate use. She states that she has reduced her opiate use, as she several years ago she was taking 8 tabs of oxycodone daily, but is now down to 3 tabs daily. She says that because of this, she is only eating 1-2 meals a day, as she cannot tolerate the pain associated with eating. She previously worked with a dietitian through [facility] in [place], and felt this was helpful as she was utilizing a regimen of multiple small meals daily as well as protein drinks, but is no longer sticking to this plan. She reports significant anxiety about her medical problems and family relationships, and states she has been taking Xanax 2-3 times a day. Reviewed her cognitive assessment from yesterday, showing moderate impairment. Discussed concerns with driving given daily high-dose narcotic use, and she expressed understanding and states she rarely drives. She appears confused about her medications, was unable to clarify when she last took duloxetine or why it was stopped. She denies suicidal and homicidal thoughts. Physical Exam Psychiatric Orientation: alert and cooperative Apperance: appropriately dressed Petite female appearing stated age. Dressed in fleece pants and sweatshirt, with short rose hair. Wearing a mask, and seated in no acute distress. Eye Contact: + fair eye contact Motor Behavior: steady gait and station Fidgeting Anxious style of speech Affect: + anxious affect and + constricted affect Mood: + anxious mood Thought Process: + circumstantial thought process and + perseveration (On health issues) Thought Content: + preoccupation, + cognitive distortions and + guilt Suicidal Thoughts: denies suicidal thoughts Homicidal Thoughts: denies homicidal thoughts Hallucinations: no auditory hallucinations Cognition: attention grossly intact and language grossly intact Insight: + impaired insight Judgement: + impaired judgement Vital Signs (Past 24 Hours) Last Vital Signs Temp 36.8 C 02/16/20 06:34 Pulse 84 02/16/20 06:35 Resp 16 02/16/20 06:34 BP 133/72 02/16/20 06:35 Pulse Ox 100 02/15/20 07:25 Results & Data ([facility]) Laboratory Results Laboratory Results - last 24 hr 02/15/20 02/15/20 02/15/20 08:48 12:46 17:07 POC Glucose 255 H 230 H 266 H 02/15/20 02/15/20 20:36 23:24 POC Glucose 163 H 138 H Current Inpatient Medications Current Inpatient Medications: Current Inpatient Medications Acetaminophen (Acetaminophen 325 Mg Tab) 650 mg PO Q4H PRN PRN Reason: Headache or Minor Fever Stop: 03/16/20 10:09 Al Hydrox/Mg Hydrox/Simethicone (Aluminum/Magnesium Susp 30 Ml Udc) 30 ml PO Q4H PRN PRN Reason: GI Upset Stop: 03/16/20 10:09 Last Admin: 02/16/20 04:53 Dose: 30 ml Documented by: Alprazolam (Alprazolam 0.25 Mg Tablet) 0.25 mg PO TID PRN PRN Reason: anxiety Stop: 03/16/20 14:14 Last Admin: 02/16/20 05:26 Dose: 0.25 mg Documented by: Atorvastatin Calcium (Atorvastatin 20 Mg Tab) 20 mg PO HS [facility] Stop: 03/16/20 21:59 Last Admin: 02/15/20 20:39 Dose: 20 mg Documented by: Bismuth Subsalicylate (Bismuth Subsalicylate Liqd 236 Ml) 15 ml PO PRN PRN PRN Reason: Loose Stool Stop: 03/16/20 10:09 Bupropion HCl (Bupropion Sr 150 Mg Tabcr) 150 mg PO BID [facility] Stop: 03/16/20 04:59 Last Admin: 02/16/20 08:00 Dose: 150 mg Documented by: Dextrose (Dextrose 50% 50 Ml Syringe) 25 - 50 ml IV UD PRN; Protocol PRN Reason: Hypoglycemia Protocol Stop: 03/16/20 11:44 Duloxetine HCl (Duloxetine Hcl 20 Mg Cap) 20 mg PO QAM [facility] Stop: 03/16/20 04:59 Last Admin: 02/16/20 07:55 Dose: Not Given Documented by: Famotidine (Famotidine 40 Mg Tablet) 40 mg PO BID DAGOBERTO Stop: 03/16/20 20:59 Last Admin: 02/16/20 07:59 Dose: 40 mg Documented by: Fentanyl (Fentanyl 12 Mcg/Hr Tdsy) 12 mcg TD Q3D [facility]AG[facility]ERTO Stop: 02/29/20 04:59 Last Admin: 02/15/20 05:46 Dose: 12 mcg Documented by: Fentanyl (Fentanyl 25 Mcg/Hr Tdsy) 25 mcg TD Q3D [facility]AG[facility] Stop: 02/29/20 04:59 Last Admin: 02/15/20 05:45 Dose: 25 mcg Documented by: Folic Acid (Folic Acid 1 Mg Tab) 1 mg PO QAM [facility] Stop: 03/17/20 08:59 Last Admin: 02/16/20 07:55 Dose: 1 mg Documented by: Glucagon (Glucagon For Inj 1 Mg Vial) 1 mg IM UD PRN; Protocol PRN Reason: Hypoglycemia Protocol Stop: 03/16/20 11:44 Glucose (Glucose 40% Gel 15 Gm Tube) 15 - 30 gm PO UD PRN; Protocol PRN Reason: Hypoglycemia Protocol Stop: 03/16/20 11:44 Glucose (Glucose 10 Tabs/Tube) 4 - 8 tabs PO UD PRN; Protocol PRN Reason: Hypoglycemia Protocol Stop: 03/16/20 11:44 Hydroxyzine HCl (Hydroxyzine Hcl 25 Mg Tab) 50 mg PO HSZ PRN PRN Reason: Insomnia Stop: 03/16/20 10:09 Hydroxyzine HCl (Hydroxyzine Hcl 25 Mg Tab) 25 mg PO Q4H PRN PRN Reason: Anxiety Stop: 03/16/20 10:09 Hyoscyamine (Hyoscyamine Sulfate 0.375 Mg Tabcr) 0.375 mg PO BID [facility] Stop: 03/16/20 20:59 Last Admin: 02/16/20 07:55 Dose: 0.375 mg Documented by: Insulin Aspart (Insulin Aspart 100 Units/Ml 3 Ml Pen) 0 units SC ACHS [facility] Stop: 03/16/20 11:59 Last Admin: 02/15/20 21:01 Dose: 1 units Documented by: Insulin Glargine (Insulin Glargine Solostar 100 Units/Ml 3 Ml Pen) 15 units SC QAM [facility] Stop: 03/17/20 08:59 Levothyroxine Sodium (Levothyroxine Sodium 50 Mcg Tablet) 50 mcg PO DAILYBB [facility] Stop: 03/17/20 07:59 Last Admin: 02/16/20 07:54 Dose: 50 mcg Documented by: Liothyronine Sodium (Liothyronine Sodium 25 Mcg Tab) 12.5 mcg PO DAILYBB [facility] Stop: 03/17/20 07:59 Last Admin: 02/16/20 07:53 Dose: 12.5 mcg Documented by: Magnesium Hydroxide (Magnesium Hydroxide Susp 30 Ml Udc) 30 ml PO DAILY PRN PRN Reason: Constipation Stop: 03/16/20 10:09 Miscellaneous (Fentanyl Patch Remove & Waste) 1 ea N/A Q3D [facility] Stop: 03/16/20 04:59 Last Admin: 02/15/20 06:00 Dose: 1 ea Documented by: Miscellaneous (Check Fentanyl Patch Placement) 1 ea N/A QS [facility] Stop: 03/16/20 07:59 Last Admin: 02/16/20 05:00 Dose: 1 ea Documented by: Miscellaneous (Carbohydrates For Hypoglycemia ) 15 - 30 gm PO UD PRN PRN Reason: Hypoglycemia Treatment Stop: 03/16/20 11:44 Miscellaneous (Check Fentanyl Patch Placement) 1 ea N/A QS [facility] Stop: 03/16/20 15:59 Last Admin: 02/16/20 05:01 Dose: 1 ea Documented by: Miscellaneous (Fentanyl Patch Remove & Waste) 1 ea N/A Q3D [facility] Stop: 03/19/20 08:58 Miscellaneous Information (Pharmacy Glycemic Mgmt Consult) 1 ea N/A UD PRN PRN Reason: Consult Stop: 03/16/20 11:07 Montelukast Sodium (Montelukast Sodium 10 Mg Tablet) 10 mg PO HS [facility] Stop: 03/16/20 21:59 Last Admin: 02/15/20 20:40 Dose: 10 mg Documented by: Multivitamins (Multivitamin Tab) 1 tab PO QAM [facility] Stop: 03/17/20 08:59 Last Admin: 02/16/20 07:56 Dose: 1 tab Documented by: Multivitamins/Minerals (Calcium 600mg + Vit D 400 Iu Tab) 1 tab PO DAILY [facility] Stop: 03/17/20 08:59 Last Admin: 02/16/20 07:55 Dose: 1 tab Documented by: Prempro - Patient's (Own Med) 1 ea PO QAM [facility] Stop: 03/17/20 08:59 Omeprazole/Sodium Bicarb - Patient's Own Med 1 ea N/A BID [facility] Stop: 03/16/20 20:59 Last Admin: 02/15/20 20:34 Dose: 1 ea Documented by: Colleen [id number] - (Patient's Own Med) 1 ea N/A TIDM [facility] Stop: 03/16/20 17:44 Last Admin: 02/15/20 17:26 Dose: 3 cap Documented by: Oxycodone/Acetaminophen (Oxycodone/Acetaminophen 10-325 Tab) 1 tab PO Q6H PRN PRN Reason: Pain Stop: 02/29/20 14:19 Last Admin: 02/15/20 20:48 Dose: 1 tab Documented by: Sodium Chloride (Sodium Chloride 0.65% Na Soln 45 Ml ([place])) 1 - 2 sprays NA PRN PRN PRN Reason: Nasal Dryness/Congestion Stop: 03/16/20 10:09 Valacyclovir HCl (Valacyclovir Hcl 500 Mg Tablet) 500 mg PO BID [facility] Stop: 02/17/20 20:59 Last Admin: 12/01/20 07:59 Dose: 500 mg Documented by: Vitamin D (Cholecalciferol 1,000 Units 25 Mcg Tab) 2,000 units PO QAM [facility] Stop: 03/17/20 08:59 Last Admin: 02/16/20 08:00 Dose: 2,000 units Documented by: Mental Health & Subst Abuse Tx Therapist [facility] Date of Therapist Appointment: 03/01/20 Caramel Maker Name of Caramel Maker: None Post Discharge Appointments Primary Care Physician Name Of Family Doctor: Dr. Sebastian
[2020-02-16] MEDS: [UNRECOGNIZED DRUG - OTHER] SCH ×3 (08:54→17:42)
[2020-02-16] MEDS: SODIUM BICARBONATE SCH ×2 (08:55→21:20)
[2020-02-16] MEDS: OMEPRAZOLE SCH ×2 (08:55→21:20)
[2020-02-16] MEDS: PREMPRO PO SCH (08:55)
[2020-02-16] MEDS: oxyCODONE/ACETAMINOPHEN 10-325 TAB PO PRN ×2 (08:56→18:35)
[2020-02-16] MEDS ORDERED: INSULIN GLARGINE SOLOSTAR 100 UNITS/ML 3 ML PEN SC SCH (09:00)
[2020-02-16] MEDS: INSULIN ASPART 100 UNITS/ML 3 ML PEN SC SCH ×4 (09:08→21:11)
--- NOTE | 2020-02-16 11:00 | Communication Note ---
Date of Service: February 16, 2020 Summary of Outpatient Therapy Records - Susana Urbina LPC Diagnosis: Post-traumatic stress disorder, unspecified Previous Diagnosis: Adjustment disorder with mixed anxiety and depressed mood 02/02/2020 - Processing of grandson, identifying some increased triggers. Pt reportedly practicing positive self talk and discussed financial stressors with her . 01/05/2020 - Processed concerns regarding how the family will transition to welcoming a soon. Pt reported feeling left out. Ongoing conflict surrounding not wanting to behave as her mother did in the past. Pt did she has been told "I make too big of an issue about things." 12/22/2019 - Pt processed recent medical concerns. Stated her has been upset with her due to the cost of her medical treatment. She processed feeling as though she is a burden. Therapist encouraged the patient to find ways to strong with other individuals in the home. 12/09/2019 - Processed upcoming procedures and ongoing medical issues. Discussed that the patient feels her mother tries to split the siblings. 11/25/2019 - Discussed ongoing back pain and decision to pursue injections. Pt continued to report that she feels "left out". Processed patient's difficulty coping with changing plans.
--- NOTE | 2020-02-16 14:37 | Pharmacy Report ---
Pharmacy Glycemic Short Note 2 - Date of Service February 16, 2020 - Glycemic Short BSG Results (Last 24 hours): 02/15/20 02/15/20 02/15/20 17:07 20:36 23:24 POC Glucose 266 H 163 H 138 H 02/16/20 02/16/20 02/16/20 08:19 12:02 12:04 POC Glucose 204 H 320 H* 325 H* 02/16/20 12:48 POC Glucose 309 H* OUTPATIENT ANTIDIABETIC REGIMEN: * Insulin pump (novolog) - basal 15.5 units/day; CF of 70 ASSESSMENT: 02/15 * Fasting BSG improved today, yet still somewhat elevated. Will consider a slight (~10%) increase in lantus tomorrow if still elevated. * Lunchtime BSG spiked to the 300s. Discussed with RN. Patient didn't eat anything extra, but was "very stressed" from family meeting. I tightened novolog very conservatively as I hesitate to make aggressive changes at this time. Patient is tolerating a diet. 02/14 * 59 year old female admitted to inpatient psychiatric unit after presenting with worsening depression. Type 1 diabetic on insulin pump at home. BSGs on arrival elevated in 300s - given insulin bolus x 2 doses in ED, trending down to 255 mg/dL * Taken off insulin pump this AM by nursing staff. Pharmacy consulted to help with glycemic assistance. Spoke with RN and pump disconnected only about ~15 mins ago, plan to keep patient off pump and utilize basal/bolus insulin * Reviewed pump settings with patient, however she was not able to tell me s ettings since she did not have her pump with her. She states that she does see [facility] outpatient for DM management so whatever they have as her settings is true * Verified with outpt notes her total basal is 15.5 units/day and CF of 70. Appears patient has been here on other admissions. Plan to utilize similar insulin doses. * Patient states she likes to keep her BSGs 200-250s as she gets nervous for drops in BSG level overnight. Plan to target higher goal range of 120-160 with novolog dosing PLAN FOR INPATIENT GLYCEMIC CONTROL: * Hold outpatient oral diabetes medications * Basal insulin * Lantus 15 qam, consider increasing to 17 units tomorrow morning if fasting remains elevated * Bolus insulin * NovoLog per scale ACHS or Q6hrs while NPO * Goal Range: Low 120 mg/dL - High 160 mg/dL * Correction Factor: 50 mg/dL/unit * Nutritional / Prandial insulin per carb ratio of 1 unit per 11 grams CHO consumed PLAN FOR DISCHARGE: * Could likely resume insulin pump on discharge as long as no contraindications exist. Would continue care with [facility] and defer adjustments in insulin to them.
[2020-02-16] MEDS: ATORVASTATIN 20 MG TAB PO SCH (21:22)
[2020-02-16] MEDS: MONTELUKAST SODIUM 10 MG TABLET PO SCH (21:22)
[2020-02-17] MEDS: CHECK fentaNYL PATCH PLACEMENT SCH ×8 (00:52→17:50)
[2020-02-17] MEDS: ALUMINUM/MAGNESIUM SUSP 30 ML UDC PO PRN ×2 (03:32→15:12)
[2020-02-17] MEDS: oxyCODONE/ACETAMINOPHEN 10-325 TAB PO PRN ×2 (04:34→19:14)
[2020-02-17] MEDS: LIOTHYRONINE SODIUM 25 MCG TAB PO SCH (08:36)
[2020-02-17] MEDS: LEVOTHYROXINE SODIUM 50 MCG TABLET PO SCH (08:37)
[2020-02-17] MEDS: CALCIUM 600MG + VIT D 400 IU TAB PO SCH (08:37)
[2020-02-17] MEDS: FOLIC ACID 1 MG TAB PO SCH (08:38)
[2020-02-17] MEDS: MULTIVITAMIN TAB PO SCH (08:38)
[2020-02-17] MEDS: DULoxetine HCL 20 MG CAP PO SCH (08:38)
[2020-02-17] MEDS: HYOSCYAMINE SULFATE 0.375 MG TABCR PO SCH ×2 (08:38→20:55)
[2020-02-17] MEDS: [UNRECOGNIZED DRUG - OTHER] SCH ×3 (08:39→17:57)
[2020-02-17] MEDS: SODIUM BICARBONATE SCH ×2 (08:39→20:55)
[2020-02-17] MEDS: OMEPRAZOLE SCH ×2 (08:39→20:55)
[2020-02-17] MEDS: PREMPRO PO SCH (08:40)
[2020-02-17] MEDS: valACYclovir HCL 500 MG TABLET PO SCH (08:41)
[2020-02-17] MEDS: FAMOTIDINE 40 MG TABLET PO SCH ×2 (08:41→20:55)
[2020-02-17] MEDS: CHOLECALCIFEROL 1,000 UNITS 25 MCG TAB PO SCH (08:42)
[2020-02-17] MEDS: buPROPion SR 150 MG TABCR PO SCH (08:42)
[2020-02-17] MEDS ORDERED: INSULIN GLARGINE SOLOSTAR 100 UNITS/ML 3 ML PEN SC SCH (09:00)
[2020-02-17] MEDS: INSULIN ASPART 100 UNITS/ML 3 ML PEN SC SCH ×4 (09:37→21:07)
--- NOTE | 2020-02-17 12:37 | Psychiatric Progress Note ---
Date of Service February 17, 2020 Impression / Recommendations Impression 59-year-old female admitted involuntarily for inpatient psychiatric treatment on 02/15/2020 after presenting to the ED with worsening depression and homicidality toward . Family reported cognitive impairment and concerns about her narcotic medications. Patient reports feeling unsupported by family, and thought the family meeting with the social service assistant was very helpful to improve communication and address stressors. Retrial of duloxetine in place of bupropion to target anxiety, mood, and chronic pain. At this time, inpatient psychiatric treatment is medically necessary due to patient being at acute risk of harm to self and others without adequate mitigation of risk factors and appropriate safety planning. (1) Homicidal ideation: 02/14 - Admitted to a locked inpatient behavioral health unit, on q15 minute safety checks - Encourage medication initiation/adjustments as indicated - Encourage participation in group and recreational therapies - Gather collateral information from outpatient providers - Suggest family meeting to involve outpatient supports in safety planning - Arrange appropriate aftercare 02/15 - Family meeting with and daughter. Patient denying HI, but there are complex family dynamics. 02/16 - Social work to contact family for discharge planning, anticipate discharge as early as tomorrow if patient continues to improve. Family confirmed that guns are locked and the patient will not have access. (2) Depression: 02/14 - Will continue current medication regimen until collateral information can be obtained from patient's PCP or family members. - Pt is not presently interested in involving her family in her treatment. However, it seems that information from them would be crucial in order to fully understanding the circumstances leading to her admission and to develop an adequate safety/discharge plan. - Encourage family meeting with daughter/ to discuss each alliance party's concerns - Consider referral for outpatient psychiatry services - PCP has recommended this; however, patient has historically declined - Coordinate with patient's outpatient therapist - Encourage participation in group and recreational programming, assist with development of healthy and effective coping strategies 02/15 - Patient's pharmacy was contacted and clarified that patient has not filled duloxetine in >1 year, patient states she is not taking it, but PCP notes indicate that she is. Recommend retrial of this medication, as per records she was only ever on 20 mg daily, likely a subtherapeutic dose. She agreed, and will start 20 mg daily with titration to an effective dose. - Discontinue bupropion as can exacerbate anxiety and want to limit polypharmacy and use one agent that can target mood, anxiety and pain (duloxetine). - Recommend referral for outpatient psychiatrist. 02/16 - Increase duloxetine to 40mg tomorrow, and continue taper off bupropion. - (3) Anxiety: 02/15 - Resume SNRI as above. Continue alprazolam but recommend slow taper off benzodiazepines given high dose opiates, cognitive impairment, advancing age, and high risk of negative outcomes. 02/16 - Patient has not used alprazolam since 02/14. Will encourage her to use prn only with plan to d/c once anxiety improved and stable. (4) Chronic pain syndrome: 02/14 - Pt has been on chronic opioid therapy for significant post-prandial pain: fentanyl in addition to prn oxycodone - PCP documentation reviewed - patient has declined regular recommendation from PCP for pain management referral - Confirming outpatient medications with patient's pharmacy - PDMP queried - Will coordinate care with the patient's PCP regarding pain medication regimen - regimen is complex with potentially dangerous combinations given use of opiates and benzodiazepines, but reports also indicate patient has not tolerated attempts to taper her pain medication regimen in the past. - Will request dietitian consultation due to patient's need for more frequent small meals (5) Cognitive change: 02/14 - Per patient, family has been reporting concern for cognitive decline. We reviewed that there may be numerous factors to explain this. These include: cognitive changes related to depression/anxiety/stress, mental status changes related to opiate/benzodiazepine medication regimen, hearing deficits, episodic hyperglycemia/hypoglycemia, primary dementing process, or normal cognitive changes related to advancing age, among other possibilities. - Cognitive functioning will likely need to be monitoring over time. MoCA completed today, and can be used as an initial value for future comparisons. - MoCA assessment completed - pt scoring 19/30, deficits observed specifically in the areas of visuospatial/executive functioning, serial 7's subtraction, language/repetition, abstraction, and delayed recall. - Visuospatial/executive - 3/5: pt struggled significant to copy the cube drawing, missing 1 point. Contour and numbers on the clock are roughly appropriate, however, patient ian a straight line from the number 11 to the number 2 when trying to indicate the time "10 after 11", again missing 1 point. - Attention - 3/6 - (Serial 7 Subtraction): pt struggled significantly with this task as well. Given first answer of "103", second answer of "93", and then being unable to complete subsequent subtractions. Pt frequently requested to use pen and paper, and was observed to be writing out subtractions on the palm of her hand. - Language - 2/3: pt had word substitution/deletion with the first sentence repetition task. She was able to come up with 16 words for fluency task - Abstraction - 03/19: train-bicycle both have "wheels" and "seat", pt was able to recognize that watch-rule have numbers and are used to measure. - Delayed Recall - 03/22: Pt able to recall 1 word without clues, 1 word with category clues and 3 words with multiple choice clues. 02/15 - Given cognitive impairment, recommend she not drive until off sedating/impairing medications and demonstrates improved cognition. Will provide with [employer] information (available at [employer]) and submit mandated [place] DOT form. (6) Type 1 diabetes mellitus: 02/14 - Pt utilizes insulin pump when at home, removed here due to protocol for inpatient psychiatric admission - Glycemic pharmacy consulted for assistance with managing blood sugar during admission - appreciate their involvement and recommendations (7) Hyperlipidemia: - Continue home dose of atorvastatin 20mg qHS Risk Factors Assessment Male: No : Yes Health Problems: Yes Mental Health Diagnoses: Yes Substance Use Disorders: Yes (chronic opioid use ) Previous Attempt: No Family History of Suicide: No Previous Psychiatric Hospitalization: No Hopelessness: No Smoker: No Protective Factors Assessment : Yes Responsible for Young Children: No Employed: No Supportive Family: No (per patient's report) Good Rapport with Provider: Yes (though resistant to follow recommendations suggested) Interval History Identifying Information JENNIFER ADAMS is a 59-year-old F who currently lives in [place], [place] with her and daughter. Patient has a history of depression/anxiety, and was admitted on 02/15/20 10:10 on a 302 involuntary commitment for worsening depression, and homicidal statements and behavior toward her . Chief Complaint "[]". Review of Systems Sleep Information Total Hours of Sleep: 3 Meal Information Percent Meal Consumed - Breakfast: 90 Percent Meal Consumed - Lunch: 50 Percent Meal Consumed - Dinner: 40 Subjective Subjective Patient was seen & assessed and interval progress reviewed with treatment team. Staff report she had a difficult family meeting with her , daughter, and the social service assistant yesterday, as her and daughter were very concerned about her recent behavior, but at the same time minimized her medical condition/distress. For example, they talked about the PCPs recommendations for them to have Narcan at home due to her high-dose opioids, and her said he did not buy it because it cost $50 and he did not think it was worth the money. They stated finances are strained, and the patient's medications are not expense. This was also discussed with respect to the need for her to get hearing aids, and both the patient's daughter and said they do not have money for hearing aids. The patient brought up her 's drinking, which he admitted to and was not motivated to change. The patient pointed out that she often feels left out, and that her and daughter getting up against her. Her family expressed concern that the patient would not allow them to go to appointments with her. They confirmed that guns in the home are locked and the patient does not have access to them. The recommendations not to drive were reviewed, and family were in favor of this as they expressed concerns about the patient's cognitive impairment and driving. Last evening, the patient was interacting with staff and peers, stated that she thought the family meeting went very well, and rated her mood a 10/10. She talked about her dog, Henry, whom she states saved her life at least 3 times, as she had multiple falls and broken bones. cone worker contacted her daughter and today to discuss discharge planning and estimated length of stay; they reported feeling fearful and unsure of how to trust the patient when she returns home. Reviewed the discharge treatment plans, they continue to state they do not like the patient's therapist, but were advised that that is up to the patient and they would need to discuss that with her. On my assessment today, Physical Exam Psychiatric Orientation: alert and cooperative Apperance: appropriately dressed, appropriately groomed and appeared stated age Eye Contact: good eye contact Motor Behavior: steady gait and station and no abnormal motor movements Hyperverbal, rambling quality Affect: euthymic affect and + anxious affect "Really good." Thought Process: + circumstantial thought process Thought Content: + cognitive distortions Suicidal Thoughts: + reports suicidal thoughts Homicidal Thoughts: + reports homicidal thoughts Hallucinations: no auditory hallucinations and no visual hallucinations Cognition: + recent memory not intact (Repeats the same stories that she told yesterday) Estimated Intelligence: average estimated intelligence Insight: + fair insight Judgement: + fair judgement Vital Signs (Past 24 Hours) Last Vital Signs Temp 36.6 C 02/17/20 06:46 Pulse 92 H 02/17/20 06:47 Resp 16 02/17/20 06:46 BP 114/70 02/17/20 06:47 Pulse Ox 100 02/15/20 07:25 Results & Data ([facility]) Laboratory Results Laboratory Results - last 24 hr 02/16/20 02/16/20 02/16/20 12:48 17:18 21:03 POC Glucose 309 H* 120 H 414 H* 02/17/20 08:26 POC Glucose 183 H Current Inpatient Medications Current Inpatient Medications: Current Inpatient Medications Acetaminophen (Acetaminophen 325 Mg Tab) 650 mg PO Q4H PRN PRN Reason: Headache or Minor Fever Stop: 03/16/20 10:09 Al Hydrox/Mg Hydrox/Simethicone (Aluminum/Magnesium Susp 30 Ml Udc) 30 ml PO Q4H PRN PRN Reason: GI Upset Stop: 03/16/20 10:09 Last Admin: 02/17/20 03:32 Dose: 30 ml Documented by: Alprazolam (Alprazolam 0.25 Mg Tablet) 0.25 mg PO TID PRN PRN Reason: anxiety Stop: 03/16/20 14:14 Last Admin: 02/16/20 05:26 Dose: 0.25 mg Documented by: Atorvastatin Calcium (Atorvastatin 20 Mg Tab) 20 mg PO HS DAGOBERTO Stop: 03/16/20 21:59 Last Admin: 02/16/20 21:22 Dose: 20 mg Documented by: Bismuth Subsalicylate (Bismuth Subsalicylate Liqd 236 Ml) 15 ml PO PRN PRN PRN Reason: Loose Stool Stop: 03/16/20 10:09 Bupropion HCl (Bupropion Sr 150 Mg Tabcr) 150 mg PO DAILY DAGOBERTO Stop: 03/18/20 08:59 Last Admin: 02/17/20 08:42 Dose: 150 mg Documented by: Dextrose (Dextrose 50% 50 Ml Syringe) 25 - 50 ml IV UD PRN; Protocol PRN Reason: Hypoglycemia Protocol Stop: 03/16/20 11:44 Duloxetine HCl (Duloxetine Hcl 20 Mg Cap) 20 mg PO QAM [facility] Stop: 03/17/20 10:59 Last Admin: 02/17/20 08:38 Dose: 20 mg Documented by: Famotidine (Famotidine 40 Mg Tablet) 40 mg PO BID [facility] Stop: 03/16/20 20:59 Last Admin: 02/17/20 08:41 Dose: 40 mg Documented by: Fentanyl (Fentanyl 12 Mcg/Hr Tdsy) 12 mcg TD Q3D [facility] Stop: 02/29/20 04:59 Last Admin: 02/15/20 05:46 Dose: 12 mcg Documented by: Fentanyl (Fentanyl 25 Mcg/Hr Tdsy) 25 mcg TD Q3D [facility] Stop: 02/29/20 04:59 Last Admin: 02/15/20 05:45 Dose: 25 mcg Documented by: Folic Acid (Folic Acid 1 Mg Tab) 1 mg PO QAM [facility] Stop: 03/17/20 08:59 Last Admin: 02/17/20 08:38 Dose: 1 mg Documented by: Glucagon (Glucagon For Inj 1 Mg Vial) 1 mg IM UD PRN; Protocol PRN Reason: Hypoglycemia Protocol Stop: 03/16/20 11:44 Glucose (Glucose 40% Gel 15 Gm Tube) 15 - 30 gm PO UD PRN; Protocol PRN Reason: Hypoglycemia Protocol Stop: 03/16/20 11:44 Glucose (Glucose 10 Tabs/Tube) 4 - 8 tabs PO UD PRN; Protocol PRN Reason: Hypoglycemia Protocol Stop: 03/16/20 11:44 Hydroxyzine HCl (Hydroxyzine Hcl 25 Mg Tab) 50 mg PO HSZ PRN PRN Reason: Insomnia Stop: 03/16/20 10:09 Hydroxyzine HCl (Hydroxyzine Hcl 25 Mg Tab) 25 mg PO Q4H PRN PRN Reason: Anxiety Stop: 03/16/20 10:09 Hyoscyamine (Hyoscyamine Sulfate 0.375 Mg Tabcr) 0.375 mg PO BID [facility] Stop: 03/16/20 20:59 Last Admin: 02/17/20 08:38 Dose: 0.375 mg Documented by: Insulin Aspart (Insulin Aspart 100 Units/Ml 3 Ml Pen) 0 units SC ACHS [facility] Stop: 03/16/20 11:59 Last Admin: 02/17/20 09:37 Dose: 5 units Documented by: Insulin Glargine (Insulin Glargine Solostar 100 Units/Ml 3 Ml Pen) [facility] Stop: 03/18/20 08:59 Last Admin: 02/17/20 09:38 Dose: 17 units Documented by: Levothyroxine Sodium (Levothyroxine Sodium 50 Mcg Tablet) 50 mcg PO DAILYPSYCHIATRIC Stop: 03/17/20 07:59 Last Admin: 02/17/20 08:37 Dose: 50 mcg Documented by: Liothyronine Sodium (Liothyronine Sodium 25 Mcg Tab) 12.5 mcg PO DAILYPSYCHIATRIC Stop: 03/17/20 07:59 Last Admin: 02/17/20 08:36 Dose: 12.5 mcg Documented by: Magnesium Hydroxide (Magnesium Hydroxide Susp 30 Ml Udc) 30 ml PO DAILY PRN PRN Reason: Constipation Stop: 03/16/20 10:09 Miscellaneous (Fentanyl Patch Remove & Waste) 1 ea N/A Q3D [facility] Stop: 03/16/20 04:59 Last Admin: 02/15/20 06:00 Dose: 1 ea Documented by: Miscellaneous (Check Fentanyl Patch Placement) 1 ea N/A PSYCHIATRIC Stop: 03/16/20 07:59 Last Admin: 02/17/20 09:35 Dose: 1 ea Documented by: Miscellaneous (Carbohydrates For Hypoglycemia ) 15 - 30 gm PO UD PRN PRN Reason: Hypoglycemia Treatment Stop: 03/16/20 11:44 Miscellaneous (Check Fentanyl Patch Placement) 1 ea N/A QS [facility] Stop: 03/16/20 15:59 Last Admin: 02/17/20 09:36 Dose: 1 ea Documented by: Miscellaneous (Fentanyl Patch Remove & Waste) 1 ea N/A Q3D [facility] Stop: 03/19/20 08:58 Miscellaneous Information (Pharmacy Glycemic Mgmt Consult) 1 ea N/A UD PRN PRN Reason: Consult Stop: 03/16/20 11:07 Montelukast Sodium (Montelukast Sodium 10 Mg Tablet) 10 mg PO HS [facility] Stop: 03/16/20 21:59 Last Admin: 02/16/20 21:22 Dose: 10 mg Documented by: Multivitamins (Multivitamin Tab) [facility] Stop: 03/17/20 08:59 Last Admin: 02/17/20 08:38 Dose: 1 tab Documented by: Multivitamins/Minerals (Calcium 600mg + Vit D 400 Iu Tab) 1 tab PO DAILY DAGOBERTO Stop: 03/17/20 08:59 Last Admin: 02/17/20 08:37 Dose: 1 tab Documented by: Prempro - Patient's (Own Med) 1 ea PO QAM DAGOBERTO Stop: 03/17/20 08:59 Last Admin: 02/17/20 08:40 Dose: 1 ea Documented by: Omeprazole/Sodium Bicarb - Patient's Own Med 1 ea N/A BID DAGOBERTO Stop: 03/16/20 20:59 Last Admin: 02/17/20 08:39 Dose: 1 ea Documented by: Creon [id number] - (Patient's Own Med) 1 ea N/A TIDM DAGOBERTO Stop: 03/16/20 17:44 Last Admin: 02/17/20 08:39 Dose: 3 cap Documented by: Oxycodone/Acetaminophen (Oxycodone/Acetaminophen 10-325 Tab) 1 tab PO Q6H PRN PRN Reason: Pain Stop: 02/29/20 14:19 Last Admin: 02/17/20 04:34 Dose: 1 tab Documented by: Sodium Chloride (Sodium Chloride 0.65% Na Soln 45 Ml ([place])) 1 - 2 sprays NA PRN PRN PRN Reason: Nasal Dryness/Congestion Stop: 03/16/20 10:09 Valacyclovir HCl (Valacyclovir Hcl 500 Mg Tablet) 500 mg PO BID [facility] Stop: 02/17/20 20:59 Last Admin: 02/17/20 08:41 Dose: 500 mg Documented by: Vitamin D (Cholecalciferol 1,000 Units 25 Mcg Tab) 2,000 units PO QAM DAGOBERTO Stop: 03/17/20 08:59 Last Admin: 02/17/20 08:42 Dose: 2,000 units Documented by: Mental Health & Subst Abuse Tx Psychiatrist Name of Psychiatrist: [facility] Psychiatrist's Date of Appointment with Psychiatrist: 03/24/20 Time of Appointment with Psychiatrist: 1:00pm Therapist Name of Therapist: Susana Urbina Therapist's Date of Therapist Appointment: 03/01/20 Therapy Appointment Comment: Telehealth Skiver Blockers Name of Skiver Blockers: None Post Discharge Appointments Primary Care Physician Name Of Family Doctor: Dr. Juan Carlos Sebastian [facility] Date of Appointment with PCP: 02/22/20 Time of Appointment with PCP: 11:15am Provider Appointment Comment: [address], [address], [place] [address]
[2020-02-17] MEDS: MONTELUKAST SODIUM 10 MG TABLET PO SCH (20:56)
[2020-02-17] MEDS: ATORVASTATIN 20 MG TAB PO SCH (20:56)
[2020-02-18] MEDS: CHECK fentaNYL PATCH PLACEMENT SCH ×4 (02:46→08:38)
[2020-02-18] MEDS: ALUMINUM/MAGNESIUM SUSP 30 ML UDC PO PRN (05:16)
--- NOTE | 2020-02-18 07:56 | Discharge Summary ---
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 obtained from patient's PCP or family members. - Pt is not presently interested in involving her family in her treatment. However, it seems that information from them would be crucial in order to fully understanding the circumstances leading to her admission and to develop an adequate safety/discharge plan. - Encourage family meeting with daughter/ to discuss each democrat's concerns - Consider referral for outpatient psychiatry services - PCP has recommended this; however, patient has historically declined - Coordinate with patient's outpatient therapist - Encourage participation in group and recreational programming, assist with development of healthy and effective coping strategies 02/15 - Patient's pharmacy was contacted and clarified that patient has not filled duloxetine in >1 year, patient states she is not taking it, but PCP notes indicate that she is. Recommend retrial of this medication, as per records she was only ever on 20 mg daily, likely a subtherapeutic dose. She agreed, and will start 20 mg daily with titration to an effective dose. - Discontinue bupropion as can exacerbate anxiety and want to limit polypharmacy and use one agent that can target mood, anxiety and pain (duloxetine). - Recommend referral for outpatient psychiatrist. 02/16 - Increase duloxetine to 40mg tomorrow, and continue taper off bupropion. 02/17 - Discontinue bupropion. Discharged on duloxetine 40 mg daily; prescription is for 20 mg tabs, take 2 daily, as this strength was covered by her insurance (40 mg capsules were nonformulary). - Bridge appointment with PCP 02/22/2020, and initial psychiatric assessment at [facility] on 03/24/2019. (3) Anxiety: 02/15 - Resume SNRI as above. Continue alprazolam but recommend slow taper off benzodiazepines given high dose opiates, cognitive impairment, advancing age, and high risk of negative outcomes. 02/16 - Patient has not used alprazolam since 02/14. Will encourage her to use prn only with plan to d/c once anxiety improved and stable. 02/17 -recommend alprazolam be taken only as needed for severe anxiety, and that it be tapered off over the next few months in order to minimize drug drug interactions, sedation, falls, and cognitive impairment. (4) Chronic pain syndrome: 02/14 - Pt has been on chronic opioid therapy for significant post-prandial pain: fentanyl in addition to prn oxycodone - PCP documentation reviewed - patient has declined regular recommendation from PCP for pain management referral - Confirming outpatient medications with patient's pharmacy - PDMP queried - Will coordinate care with the patient's PCP regarding pain medication regimen - regimen is complex with potentially dangerous combinations given use of opiates and benzodiazepines, but reports also indicate patient has not tolerated attempts to taper her pain medication regimen in the past. - Will request dietitian consultation due to patient's need for more frequent small meals (5) Cognitive change: 02/14 - Per patient, family has been reporting concern for cognitive decline. We revi ewed that there may be numerous factors to explain this. These include: cognitive changes related to depression/anxiety/stress, mental status changes related to opiate/benzodiazepine medication regimen, hearing deficits, episodic hyperglycemia/hypoglycemia, primary dementing process, or normal cognitive changes related to advancing age, among other possibilities. - Cognitive functioning will likely need to be monitoring over time. MoCA completed today, and can be used as an initial value for future comparisons. - MoCA assessment completed - pt scoring , deficits observed specifically in the areas of visuospatial/executive functioning, serial 7's subtraction, language/repetition, abstraction, and delayed recall. - Visuospatial/executive - 05/20: pt struggled significant to copy the cube drawing, missing 1 point. Contour and numbers on the clock are roughly appropriate, however, patient ian a straight line from the number 11 to the number 2 when trying to indicate the time "10 after 11", again missing 1 point. - Attention - 05/21 - (Serial 7 Subtraction): pt struggled significantly with this task as well. Given first answer of "103", second answer of "93", and then being unable to complete subsequent subtractions. Pt frequently requested to use pen and paper, and was observed to be writing out subtractions on the palm of her hand. - Language - 2/3: pt had word substitution/deletion with the first sentence repetition task. She was able to come up with 16 words for fluency task - Abstraction - 1/2: train-bicycle both have "wheels" and "seat", pt was able to recognize that watch-rule have numbers and are used to measure. - Delayed Recall - 03/22: Pt able to recall 1 word without clues, 1 word with category clues and 3 words with multiple choice clues. 02/15 - Given cognitive impairment, recommend she not drive until off sedating/impairing medications and demonstrates improved cognition. Will provide with [employer] information (available at [facility]) and submit mandated [facility] DOT form. 02/17 -Patient and family aware of recommendations not to drive until cognition improves and she is cleared by her physician. She was given the handout "What To Expect When My Medical Condition Has Been Reported to [facility]." (6) Type 1 diabetes mellitus: 02/14 - Pt utilizes insulin pump when at home, removed here due to protocol for inpatient psychiatric admission - Glycemic pharmacy consulted for assistance with managing blood sugar during admission - appreciate their involvement and recommendations (7) Hyperlipidemia: - Continue home dose of atorvastatin 20mg qHS Mental Health & Subst Abuse Tx Psychiatrist Name of Psychiatrist: [facility] Date of Appointment with Psychiatrist: 03/24/20 Time of Appointment with Psychiatrist: 1:00pm Psychiatric Appointment Comment: Telehealth (attempting to get a sooner appt) Therapist Name of Therapist: Susana Urbina Therapist's Date of Therapist Appointment: 03/01/20 Therapy Appointment Comment: Telehealth Assistant Librarian Name of Assistant Librarian: None Post Discharge Appointments Primary Care Physician Name Of Family Doctor: Dr. Juan Carlos Sebastian [facility] Date of Appointment with PCP: 02/22/20 Time of Appointment with PCP: 11:15am Provider Appointment Comment: [address], [address], [place] [address] Smoking Cessation Counseling Tobacco Cessation Medication Prescribed at Discharge: Not Applicable/Non-Smoker Contact Information Discharge Discharge [address]: [address] [place] [address], [address] Discharge Plan Discharge Items Patient Disposition: Home - Self-Care Reason For Visit: MDD Discharge Diagnosis: Depression generalized anxiety disorder cognitive disorder NOS chronic pain syndrome Activity: Per Instructions section Driving/Machine Use: No driving. See attached paperwork Non-emergency contact: Primary Care Provider, Psychiatrist and Therapist Call non-emergency contact if: you have any medication questions and your symptoms worsen Follow-up/Referrals: Juan Carlos Sebastian MD [Primary Care Provider] - Diet: Carb Count or DM1 Addtl Attending Provider Instructions: SPECIAL CARE INSTRUCTIONS: 1. Follow through with your scheduled aftercare appointments. If unable to keep an appointment, please call to reschedule. 2. Take your medication only as prescribed. Medication should not be changed or stopped without the approval of your doctor. In the event of worsening symptoms or concerns about side effects, contact your doctor immediately. 3. Utilize new healthy coping skills, anger management skills, and stress management skills learned during your hospitalization. Journal feelings and process them with a support person. Identify stressors or situations that may result in relapse, deterioration or inappropriate behaviors and develop a plan to deal with those issues. 4. If your coping skills are ineffective and you are in crisis, contact your outpatient providers for direction. If unable to reach your providers, please call the [facility] CRISIS LINE AT , go to the [facility] walk-in center at [address], [address], [place], or go to the closest Emergency Room. 5. Avoid alcohol and un-prescribed drugs. 6. You have been provided with the Mental Health Advance Directives Pamphlet for your review. AFTERCARE APPOINTMENTS: * Please call your insurance company prior to your scheduled appointment to confirm your aftercare providers are covered. Take your insurance information to your appointments. WHO TO CALL AND WHEN: Medical Emergencies: For questions or emergencies related to your hospital stay, please contact the Inpatient Behavioral Health Unit at [phone]. A eap clinician is on-call 08/10 for the Behavioral Health Unit for emergencies At any time you feel your situation is an emergency, you may also call 911 immediately. Pending Studies at Discharge: No Stand-Alone Forms: My [facility], Smoking Cessation Medications and DC Order Prescriptions: New duloxetine 20 mg capsule,delayed release(DR/EC) 40 mg PO DAILY Qty: 60 RF: 0 Continued (DME) Contour Next Test Strips strip See Rx Instructions [id number] .MEDSUPPLY Qty: 630 RF: 3 Novolog U-100 Insulin aspart 100 unit/mL solution 50 unit continuous subcutaneous infusion DAILY 90 Days Qty: 50 RF: 3 glucagon (human recombinant) 1 mg recon soln 1 mg IM UD PRN (Reason: Hypoglycemia) Qty: 1 RF: 2 hyoscyamine sulfate 0.375 mg tablet extended release 12 hr 0.375 mg PO BID Qty: 180 RF: 3 famotidine 40 mg tablet 40 mg PO BID Qty: 180 RF: 3 folic acid 1 mg tablet 1 mg PO QAM Qty: 90 RF: 3 montelukast 10 mg tablet 10 mg PO QAM Qty: 90 RF: 3 omeprazole-sodium bicarbonate 40-1.1 mg-gram capsule 1 cap PO BID Qty: 180 RF: 3 liothyronine 25 mcg tablet 12.5 mcg PO QAM Qty: 45 RF: 1 Prempro 0.3-1.5 mg tablet 1 tab PO DAILY Qty: 28 RF: 2 levothyroxine 50 mcg tablet 50 mcg PO QAM Qty: 90 RF: 1 atorvastatin 20 mg tablet 20 mg PO HS Qty: 90 RF: 3 valacyclovir 500 mg tablet 500 mg PO BID Qty: 60 RF: 3 oxycodone-acetaminophen 10-325 mg tablet 1 tab PO Q6H PRN (Reason: Pain) Qty: 100 RF: 0 alprazolam 0.25 mg tablet 0.25 mg PO TID PRN (Reason: anxiety) Qty: 60 RF: 0 ondansetron 8 mg tablet,disintegrating 8 mg PO Q6H PRN (Reason: Nausea) Qty: 30 RF: 0 fentanyl 25 mcg/hr patch 72 hour 25 mcg topical Q3D Qty: 10 RF: 0 fentanyl 12 mcg/hr patch 72 hour 12 mcg topical Q3D Qty: 10 RF: 0 zoledronic klya-ugattfja-fzepz [Reclast] 5 mg/100 mL piggyback 5 mg IV YEARLY Qty: 100 RF: 0 fluconazole [Diflucan] 150 mg tablet 150 mg PO Q3D PRN (Reason: as directed) RF: 0 nystatin-triamcinolone 100,000-0.1 unit/g-% cream 1 appln TOP BID PRN (Reason: fungal) RF: 0 multivitamin Tablet 1 tab PO QAM RF: 0 Lantus U-100 Insulin 100 unit/mL Solution 12 unit SUBCUT HS PRN (Reason: Unknown) RF: 0 cholecalciferol (vitamin D3) [Vitamin D3] 2,000 unit Capsule 2,000 unit PO QAM RF: 0 Creon 12,000-38,000 -60,000 unit Capsule,Delayed Release(Dr/Ec) See Rx Instructions .ROUTE .COMPLEX RF: 0 Calcium 600 1 tab PO DAILY RF: 0 Discontinued bupropion HCl 150 mg tablet sustained-release 12 hr 150 mg PO BID Qty: 180 RF: 3 Discharge Orders: Discharge Order (Routine); Ordered 02/18/20 Ordered By: Esha Rashid Admission Data Admit Date/Time: 02/15/20 10:10 Attending Provider: Esha Rashid Admit Provider: Esha Rashid Primary Care Provider: Juan Carlos Sebastian Other Interventions: PSY Interdisciplinary Discharge Planning Last Done: 02/18/20 07:35 Coding Level of Care Code 24941 D/C day mgmt > 30 min Diagnoses Homicidal ideation R45.850 Depression F32.9 Anxiety F41.9 Chronic pain syndrome G89.4 Cognitive change R41.89 Type 1 diabetes mellitus E10.9 Hyperlipidemia E78.5
[2020-02-18] MEDS: SODIUM BICARBONATE SCH (08:38)
[2020-02-18] MEDS: ALPRAZolam 0.25 MG TABLET PO PRN (08:38)
[2020-02-18] MEDS: OMEPRAZOLE SCH (08:38)
[2020-02-18] MEDS: LEVOTHYROXINE SODIUM 50 MCG TABLET PO SCH (08:39)
[2020-02-18] MEDS: LIOTHYRONINE SODIUM 25 MCG TAB PO SCH (08:39)
[2020-02-18] MEDS: [UNRECOGNIZED DRUG - OTHER] SCH (08:39)
[2020-02-18] MEDS: CALCIUM 600MG + VIT D 400 IU TAB PO SCH (08:39)
[2020-02-18] MEDS: buPROPion SR 150 MG TABCR PO SCH (08:40)
[2020-02-18] MEDS: HYOSCYAMINE SULFATE 0.375 MG TABCR PO SCH (08:40)
[2020-02-18] MEDS: FOLIC ACID 1 MG TAB PO SCH (08:40)
[2020-02-18] MEDS: MULTIVITAMIN TAB PO SCH (08:40)
[2020-02-18] MEDS: FAMOTIDINE 40 MG TABLET PO SCH (08:40)
[2020-02-18] MEDS: CHOLECALCIFEROL 1,000 UNITS 25 MCG TAB PO SCH (08:40)
[2020-02-18] MEDS: PREMPRO PO SCH (08:41)
[2020-02-18] MEDS ORDERED: INSULIN GLARGINE SOLOSTAR 100 UNITS/ML 3 ML PEN SC SCH (09:00)
[2020-02-18] MEDS ORDERED: DULoxetine HCL 20 MG CAP PO SCH (09:00)
[2020-02-18 09:16] LABS: 7-Aminoclonaz, Confirm NEGATIVE ng/mL (<25); Hydro-Alp Ur, GC/MS 169 ng/mL (<25); Hydroxyethylflurazepam, Conf NEGATIVE ng/mL (<50); Hydroxymidazolam Ur, GC/MS NEGATIVE ng/mL (<50); Hydroxytriazolam NEGATIVE ng/mL (<50); Lorazepam, Ur GC/MS NEGATIVE ng/mL (<50); MDA negative; MDEA negative; MDMA (Ecstasy) Urine, Confirm negative; Nordiazepam, Confirm NEGATIVE ng/mL (<50); Oxazepam Ur, GC/MS NEGATIVE ng/mL (<50); Temazepam, Confirm NEGATIVE ng/mL (<50)
[2020-02-18] MEDS: INSULIN ASPART 100 UNITS/ML 3 ML PEN SC SCH (09:34)
[2020-02-18] MEDS: fentaNYL 12 MCG/HR TDSY TD SCH (10:52)
[2020-02-18] MEDS: fentaNYL 25 MCG/HR TDSY TD SCH (10:53)
== END 2020-02-18 11:00 | disposition home or self-care (01) | DRG 881 ==
LOC: ED 01:04 → 3S 10:10